=== PATIENT | female | born 1950 | race Caucasian/White ===

== ENCOUNTER 2018-02-22 15:00 | Outpatient (RCR) | payer MEDICARE, OTHER, SELFPAY ==
--- NOTE | 2018-01-27 15:57 | HP.PTEVAL ---
Patient's Visit Information ROSALVA RODRIGUEZ is a 68 year old F referred to Physical Therapy by Chalino Mae DO [email or web address] with a diagnosis of UPPER BACK PAIN AND MUSCLE SPASMS. Date of Evaluation: 01/27/18 Physical Therapist: Ingrid Caba - Visit Plan Frequency: 2-3x /Week Duration: 4-6 Weeks Plan: CERVICAL US AND STM. POSTURE CORRECTION/STRENGTHENING, INSTRUCTION IN APPROPRIATE BODY MECHANICS AND ACTIVITY MODIFICATIONS. KATIA UE ROM, STRETCHING AND STRENGTHENING. HEP INSTRUCTION. 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 Disability: NO. Present symptoms: NECK PAIN. UPPER BACK PAIN. NO SHOULDER PAIN. NO UE PAIN, NUMBNESS OR TINGLING EXCEPT SHE DOES MENTION SOME HAND TINGLING AT NIGHT/MORNING. Present since: ABOUT 2 MONTHS AGO. Pain Scale: WORST 10/10, LEAST 1/10. Currently: 11/11. Commenced as a result of: NO APPARENT REASON. Symptoms at onset: UPPER BACK. Worse: TALKING ON PHONE AT WORK, TRYING TO SLEEP, BEING ON IPAD, READING, DRIVING, TURNING HEAD, LOOKING UP AND DOWN. Better: HEAT, STRETCHING, BIOFREEZE, MASSAGE. Disturbed sleep: YES. Previous history/Previous treatment: ABOUT A 5 YEAR HISTORY OF NECK/UPPER BACK CHIROPRACTIC TREATMENTS NEEDED. Dizziness: NO. Tinnitis: NO. Nausea: NO. Difficulty Swollowing: NO. Gait: NORMAL. Accidents: NO. Unexplained weight loss: NO. Imaging: NO. PMH: HTN, HYPERLIPIDEMIA, PALPITATIONS, REFLUX, LUMBAR SPINAL STENOSIS, VITAMIN D DEFICIENCY, ANXIETY, VERTIGO, OA, BACK SURGERY 2015 - Objective Sitting Posture: POOR. FORWARD HEAD AND ROUNDED SHOULDERS. Active Correction of posture: BETTER. Other Observations: INDEP GAIT AND TRANSFERS. PLEASANT AND COOPERATIVE TO WORK WITH. Motor deficit: KATIA UE STRENGTH 4-5/5 WITH MMT'ING AND TESTING DOES NOT PROVOKE NECK PAIN BUT HER SCAPULA ARE WEAK. Sensory deficit: KATIA UE LIGHT TOUCH SENSATION ARE INTACT AND SYMMETRICAL. ROM deficit: KATIA UE'S WFL. Reflexes: 2/3 KATIA UE'S. Dural Signs: NEGATIVE KATIA UE'S. Cervical Mvmt Loss: Flex: NILL. Pro: NILL. Ext: MOD +. Ret: DEBBI +. RSB: MOD +. LSB: MIN. R Rot: MIN. L Rot: MOD +. + ARE THE MOTIONS THAT ARE MORE LIMITED AND PROVOKE PAIN WITH TESTING. Postural strength: POOR. Palpation: NO ACUTE LOCALIZED TENDERNESS OF UPPER THORACIC OR CERVICAL VERTEBRAE BUT SHE HAS INCREASED MUSCLE TONE OF KATIA UPPER TRAPS AND PARASPINALS. OTHER: GENTLE CERCICAL DISTRACTION TESTING HAS NO EFFECT OTHER THAN STRETCHING DOWN TO LOW BACK. - Goals Goal 1:: DECREASE C/O NECK AND UPPER BACK PAIN Goal Time Frame: 4-6 Weeks Goal 2:: IMPROVE BENDING, LIFTING, REACHING, ADL AND SLEEP FUNCTION Goal Time Frame: 4-6 Weeks Goal 3:: INSTRUCT IN PROPHYLAXIS Goal Time Frame: 4-6 Weeks - Rehabilitation Potential Rehabilitation Potential: Fair - Anticipated Interventions Patient/Client Instruction: Educate patient on: Condition, Plan of Care, Risk Factors, Benefits of Fitness Program For the Purpose of:: To improve self management Therapeutic Exercise to Include: Strength training, Body mechanics, Postural training, Flexibilty training, Active ROM, Scapular Strength/Stabilization For the Purpose of:: To improve ability of physical actions for home/community/work/leisure Manual Therapy Techniques to Include: Soft tissue mobilization For the Purpose of:: To decrease pain, To increase ROM Thermo therapy (hot pack): Yes Ultrasound (thermal/non thermal): Yes For the Purpose of:: To decrease pain, To decrease swelling/inflammation, To increase ROM Thank you for the opportunity to evaluate your patient. For Medicare and Medicare HMO plans, please review the plan of care and approve it. It will need to be FAXED BACK to us at [phone] for Medicare purposes. Please let me know if there are questions or concerns regarding this plan of care. Physician Signature: Date:
--- NOTE | 2018-02-22 15:44 | HP.PTDCSUM ---
HP - PT D/C Summary It has been my pleasure to treat ROSALVA RODRIGUEZ under orders from Chalino Mae DO, for the diagnosis of UPPER BACK PAIN AND MUSCLE SPASMS for a total of 8 visit(s). Discharge Date: Please see the following information for a summary of their discharge status. - Subjective Subjective: PATIENT REPORTS SHE REALLY ISN'T GETTING BETTER. SHE PLANS TO GO BACK TO DR. MAE. SHE DOESN'T HAVE ANY PAIN RIGHT NOW BUT SOON SHE TURNS HER HEAD TO THE LEFT IT PROVOKES PAIN. THE PAIN WAKES HER UP AT NIGHT TOO. - Pain L UT Pain Intensity (Out of 10): 0 - Overall Improvement % Improvement: 65 - Objective Objective/Function: UPON EXAM, THERE IS NOT MUCH CHANGE SINCE INITIAL EVALUATION. Cervical Mvmt Loss: Flex: NILL. Pro: NILL. Ext: MIN +. Ret: MOD +. RSB: MIN +. LSB: MIN. R Rot: MIN. L Rot: MOD +. + ARE THE MOTIONS THAT ARE MORE LIMITED AND PROVOKE PAIN WITH TESTING. OSWESTRY SCORE HAS IMPROVED FROM 11 TO 8 THOUGH. RECOMMEND PHYSICIAN RE-CHECK. PATIENT IS AGREEABLE. - Goals Goal 1:: DECREASE C/O NECK AND UPPER BACK PAIN Goal Progress: Not Progressing Goal 2:: IMPROVE BENDING, LIFTING, REACHING, ADL AND SLEEP FUNCTION Goal Progress: Not Progressing Goal 3:: INSTRUCT IN PROPHYLAXIS Goal Progress: Not Progressing - Plan Plan: D/C WITH RECOMMENDATION TO FOLLOW UP WITH DR. MAE. PATIENT IS AGREEABLE. - D/C Information If there are questions or concerns regarding this patient's physical therapy, please feel free to call me at [phone]. Thank you for the referral of this patient. Sincerely, Ingrid Caba
== END 2018-02-22 19:00 | disposition home or self-care (01) ==
LOC: PT 15:00
PROVIDERS: Family Provider Family Medicine; PCP Family Medicine; Visit Provider Family Medicine
DX: M54.9 Dorsalgia, unspecified (principal); M62.838 Other muscle spasm; M48.061 Spinal stenosis, lumbar region without neurogenic claudication; M19.90 Unspecified osteoarthritis, unspecified site
CPT/HCPCS: 97035; 97110; 97140; 97162; 97530

== ENCOUNTER → 2018-03-08 13:19 | Outpatient (CLI) | payer MEDICARE, OTHER, SELFPAY | PROVIDERS: Family Provider Family Medicine; PCP Family Medicine; Visit Provider Family Medicine | DX: I10 Essential (primary) hypertension (principal); E78.5 Hyperlipidemia, unspecified; E55.9 Vitamin D deficiency, unspecified ==

== ENCOUNTER → 2018-03-17 09:34 | Outpatient (CLI) | payer MEDICARE, OTHER, SELFPAY ==
--- NOTE | 2018-03-17 09:50 | RAD_ITS ---
XR Spine Cervical 4 or 5 Views INDICATION: CERVICAL PAIN AND TINGLING RIGHT FINGERS COMPARISON: None TECHNIQUE: 6 views of the cervical spine FINDINGS: There is mild anterolisthesis of C4 on C5. Disc spaces at C5-6 and C6-7 are decreased. Marginal disc osteophytes are noted. Facet arthritic changes and uncovertebral joint hypertrophy is noted at the mid and lower cervical levels with findings suggestive of neuroforaminal narrowing. A fracture is not seen with certainty. There is normal atlantoaxial relationship. RAD/Cerv Spine 4 or 5 Views IMPRESSION: Marked degenerative changes at the cervical spine as detailed above findings suggestive of bilateral neuroforaminal narrowing at the mid and lower cervical levels. MRI may be helpful for further evaluation. at 1728 Reported and signed by: Maricarmen Ward MD Electronically Signed: Maricarmen Ward MD at 17:26 EDT Tel , Service support ,
[2018-03-17 12:03] LABS: Absolute Lymphocyte Count 1.66 X10^3/ul (0.83-4.51); Basophil# 0.04 X10^3/uL; Basophil% 0.9 % (0-1); Eosinophil# 0.22 X10^3/uL; Eosinophils% 5.1 % (0-5); Hematocrit 40.2 % (37-47); Hemoglobin 13.2 g/dl (12.0-15.0); Lymphocyte # 1.66 X10^3/ul (4.0); Lymphocyte % 38.2 % (19-41); Mean Corp Hgb Conc 32.8 g/gl (32-36); Mean Corpuscular Hgb 30.3 pg (27.0-32.0); Mean Corpuscular Volume 92.4 fL (81-99); Mean Platelet Vol. 9.4 fl (6.2-12.0); Monocyte# 0.41 X10^3/uL; Monocyte% 9.4 % (0-10); Neutrophil # 2.01 X10^3/uL (2.7-7.7); Neutrophil % 46.2 % (47-70); POSITIVE COUNT NO; POSITIVE DIFFERENTIAL NO; POSITIVE MORPHOLOGY NO; Platelet Count 282 K/mm3 (150-450); RBC Distribution Width CV 13.8 % (11.6-14.6); RBC Distribution Width SD 46.6 fl (35.1-43.9); Red Blood Count 4.35 M/mm3 (4.2-5.4); White Blood Count 4.4 K/mm3 (4.4-11.0)
[2018-03-17 12:25] LABS: Vitamin D,25 Hydroxy 51.8 ng/mL (29.95-100.01)
[2018-03-17 12:29] LABS: AST(SGOT) 11 U/L (15-37); Alanine Aminotransfer ALT/SGPT 20 U/L (13-56); Albumin, Serum 3.6 g/dL (3.2-5.0); Alkaline Phosphatase 59 U/L (45-117); Anion Gap 7 (5-15); BUN 18 mg/dL (7-18); BUN/Creat Ratio 30.9 RATIO (10-20); Calcium,Total 8.2 mg/dL (8.5-10.1); Chloride 107 mmol/L (98-107); Cholesterol 231 mg/dL (200); Creatinine, Serum 0.58 mg/dL (0.55-1.02); EST Glomerular Filtration Rate 109 mL/min (>60); Est Glom Filt Rate - Afr Amer 132 mL/min (>60); Globulin 3.5 g/dL (2.2-4.2); Glucose 85 mg/dL (74-106); High Density Lipoprotein 68 mg/dL; Potassium 4.1 mmol/L (3.5-5.1); Protein, Total 7.1 g/dL (6.4-8.2); Sodium Level 142 mmol/L (136-145); Triglycerides 79 mg/dL; Very Low Density Lipoprotein 16 mg/dL (5-40)
== END ==
PROVIDERS: Family Provider Family Medicine; PCP Family Medicine; Visit Provider Family Medicine
DX: I10 Essential (primary) hypertension (principal); E78.5 Hyperlipidemia, unspecified; E55.9 Vitamin D deficiency, unspecified; M54.2 Cervicalgia
CPT/HCPCS: 36415; 72050; 80053; 80061; 82306; 85025

== ENCOUNTER → 2018-03-31 10:15 | Outpatient (CLI) | payer MEDICARE, OTHER, SELFPAY ==
--- NOTE | 2018-03-31 10:28 | MRI_ITS ---
STUDY: MRI CERVICAL SPINE WITHOUT CONTRAST REASON FOR EXAM: Female, 68 years old. neck pain radiating to right arm, tingling right fingers. TECHNIQUE: Standardized fat and water weighted pulse sequences were obtained in the sagittal and axial planes. COMPARISON: None FINDINGS: Normal foramen magnum and brainstem-cervical cord junction. Normal craniovertebral junction. Normal anterior atlantoaxial articulation. Normal odontoid process. There is straightening of the normal cervical lordosis. C2-3: Normal endplates. Normal disc height, signal and morphology. Normal central canal and intervertebral neural foramina. C3-4: There is minimal disc space narrowing and endplate spondylosis. There is uncovertebral facet arthropathy with mild right and severe left foraminal stenosis. There is no central canal stenosis. C4-5: There is mild disc space narrowing and endplate spondylosis. There is minimal disc osteophyte complex without central canal stenosis. There is uncovertebral facet arthropathy with mild right and moderate left foraminal stenosis. C5-6: There is moderate disc space narrowing and endplate spondylosis. There is a mild disc osteophyte complex with moderate central canal stenosis. There is uncovertebral arthropathy with moderate right and mild left foraminal stenosis. C6-7: There is moderate disc space narrowing and endplate spondylosis. There is a mild disc osteophyte complex with mild canal stenosis. There is uncovertebral arthropathy with mild bilateral foraminal stenosis. C7-T1: Normal endplates. Normal disc height, signal and morphology. Normal central canal and intervertebral neural foramina. Normal cervical cord. There is a 2 cm right thyroid nodule. Further evaluation with sonography can be obtained. MRI/Spine Cervical (Routine) IMPRESSION: C3/C4: Severe left foraminal stenosis. C4/C5: Moderate left foraminal stenosis. C5/C6: Moderate central canal stenosis. Moderate right foraminal stenosis. Electronically Signed: Jose Wick MD at 8:11 EDT Tel , Service support ,
== END ==
PROVIDERS: Family Provider Family Medicine; PCP Family Medicine; Visit Provider Family Medicine
DX: M54.2 Cervicalgia (principal); G89.29 Other chronic pain
CPT/HCPCS: 72141

== ENCOUNTER → 2018-04-09 10:20 | Outpatient (CLI) | payer MEDICARE, OTHER, SELFPAY ==
--- NOTE | 2018-04-09 10:20 | DT_ITS ---
This patient was seen during an EMR downtime April 05, 2018 - April 12, 2018. This patient may have a combination of paper and electronic documentation or all paper documentation. All documentation is viewable within the e-chart portion of [facility] for each patient visit.
--- NOTE | 2018-04-09 10:22 | US_ITS ---
STUDY: THYROID ULTRASOUND REASON FOR EXAM: Female, 68 years old. Nodules noted on MRI TECHNIQUE: Ultrasound evaluation of the thyroid was performed with real-time and static mcrae-scale imaging. COMPARISON: None. FINDINGS: RIGHT LOBE: The right lobe of the thyroid gland measures 4.5 x 2.5 x 2.1 cm. There is a homogeneous echotexture. Multiple solid/cystic complex nodules, largest measures 3.6 x 2.2 x 1.9 cm. LEFT LOBE: The left lobe of the thyroid gland measures 3.6 x 1.3 x 1.0 cm. There is a homogeneous echotexture. There are no demonstrated solid, cystic or complex lesions. ISTHMUS: The isthmus measures 3 mm. The regional lymph nodes are normal. US/Thyroid IMPRESSION: Normal sized homogeneous thyroid gland with multiple complex cysts in the right lobe. Largest measures 3.6 x 2.2 x 1.9 cm. Electronically Signed: Miguel Chapa MD at 8:26 EDT , Service support ,
== END ==
PROVIDERS: Family Provider Family Medicine; PCP Family Medicine; Visit Provider Family Medicine
DX: E04.1 Nontoxic single thyroid nodule (principal)
CPT/HCPCS: 76536

== ENCOUNTER → 2018-04-12 13:13 | Outpatient (CLI) | payer MEDICARE, OTHER, SELFPAY ==
--- NOTE | 2018-04-12 13:13 | DT_ITS ---
This patient was seen during an EMR downtime April 05, 2018 - April 12, 2018. This patient may have a combination of paper and electronic documentation or all paper documentation. All documentation is viewable within the e-chart portion of [facility] for each patient visit.
--- NOTE | 2018-04-12 13:16 | BI_ITS ---
MAMMOGRAPHY - BILATERAL SCREENING REASON FOR EXAM: Female, 68 years old. Routine annual screening examination. PERTINENT HISTORY: NO FAM HX BILAT EXC BX'S 35+ YRS AGO TECHNIQUE: Digital bilateral breast vonda (3D mammographic acquisition) in the CC and MLO projections. 2-D mediolateral oblique (MLO) and craniocaudad (CC) views of both breasts were obtained. CAD: Full Field Digital Mammography with Computer Added Detection was performed. COMPARISON: 03/10/2017, Mar 03 2016 1:10pm and 03/02/2015 FINDINGS: Breast Composition: There are scattered areas of fibroglandular density. There are no dominant masses or suspicious calcifications. No other significant abnormalities are identified. BI/SCREENING MAMM (CAD), BILAT IMPRESSION: Stable bilateral screening mammogram. Yearly follow-up mammogram recommended. (A) ASSESSMENT CATEGORY: BIRADS Category 2: Benign. A letter regarding these results will be sent to the patient by the facility within 30 days. Approximately 10% of breast cancers are not detected by mammography. A normal mammogram should not delay biopsy of a clinically suspicious abnormality. [id number] Electronically Signed: Venus Piedra MD at 11:48 EDT Tel , Service support ,
== END ==
PROVIDERS: Family Provider Family Medicine; PCP Family Medicine; Visit Provider Family Medicine
DX: Z12.31 Encounter for screening mammogram for malignant neoplasm of breast (principal)
CPT/HCPCS: 77063; 77067

== ENCOUNTER → 2018-04-19 13:52 | Outpatient (CLI) | payer MEDICARE, OTHER, SELFPAY ==
[2018-04-19 16:29] LABS: T4 Total, Thyroxin 7.2 ug/dL (4.8-13.9); Thyroid Stim Hormone (TSH) 2.88 uIU/mL (0.358-3.74)
[2018-04-22 13:10] LABS: Anti-Thyroglobulin AB < 1.0 IU/mL (0.0-0.9); Thyroglobulin, Serum Qt. 44.8 ng/mL (1.5-38.5); Thyroid Peroxidase AB 12 IU/mL (0-34)
== END ==
PROVIDERS: Family Provider Family Medicine; PCP Family Medicine; Visit Provider Otolaryngology
DX: E04.2 Nontoxic multinodular goiter (principal)
CPT/HCPCS: 36415; 84432; 84436; 84443; 86376; 86800

== ENCOUNTER → 2018-04-21 12:59 | Outpatient (CLI) | payer MEDICARE, OTHER, SELFPAY ==
--- NOTE | 2018-04-21 13:24 | RAD_ITS ---
STUDY: X-RAY - LUMBAR SPINE REASON FOR EXAM: Female, 68 years old. Low back pain with radiation of right lower extremity TECHNIQUE: 5 view(s) of the lumbar spine were obtained. COMPARISON: Prior study of every 22,015 FINDINGS: Normal lumbar lordosis. There is no substantial scoliosis. There is a minimal grade 1 anterolisthesis of L4 relative to L5. Status post posterior spinal fusion changes with interpeduncular screws are noted at the L4-5 level. There are status post L4 and L5 laminectomy changes. There is mild spondylosis of L2 and L3. There is narrowing of the L1-2 and L2-3 disc spaces. There is no demonstrated fracture. The soft tissue structures are unremarkable. RAD/L/S Spine Min 4 Views IMPRESSION: Minimal grade 1 anterolisthesis of L4 relative to L5. Status post posterior spinal fusion changes with interpeduncular screws at the L4-5 level. There are status post L4 and L5 laminectomy changes. Mild spondylosis of L2 and L3. Narrowing of the L1-2 and L2-3 disc spaces. The bones are osteopenic. Electronically Signed: Jaron Simmons MD at 16:28 EDT , Service support ,
== END ==
PROVIDERS: Family Provider Family Medicine; PCP Family Medicine; Visit Provider Nurse Practitioner Family
DX: M54.5 Low back pain (principal)
CPT/HCPCS: 72110

== ENCOUNTER → 2018-04-28 13:50 | Outpatient (CLI) | payer MEDICARE, OTHER, SELFPAY ==
--- NOTE | 2018-04-28 | ASPIG_PTH ---
PATIENT: ROSALVA RODRIGUEZ LOC: [facility]#:[id number] AGE/SX: 75/F ROOM: RE04/28/[address]: Dr. Lambert Hanley MD : 1950 BED: DIS: SPEC #: [id number] RECD: 04/28/18 15:42 STATUS: ELIESER CARMELA #: [id number] LENCHO: 04/28/18 00:[address]: Lambert Hanley DEPT: CYTOLOGY RECD BY: Gus Box ENTERED: 04/28/18 15:43 SP TYPE: ASP OUT OTHR DR: Dr. Chalino Mae DO Tissues: Thyroid gland, NOS Procedures: FNA Specimen Adequacy Pap Stain (control) Special Stain Group II Surgery Specimen Level IV Diff Quik Stain (control) Cell Block Cytology Other HEADER OPERATION: Ultrasound guided right thyroid biopsy PRE-OP DIAGNOSIS: Nontoxic multinodular goiter TISSUE SUBMITTED: Right thyroid nodule, FNA DIAGNOSIS CYTOLOGY Right thyroid nodule, ultrasound guided FNA (smears and cell block): A few benign follicular cells were noted. The specimen is limited in evaluation due to lack of adequate number of follicular cells. JACKLYN:baldo 04/29/18 COMMENT The specimen is evaluated at the time of FNA by Dr. Loyola. Immediate Evaluation set #1 (2 passes) = Rare follicular cells noted. Immediate Evaluation #2 (1 pass) = Blood only. Correlation with clinical, radiologic findings and appropriate followup are necessary. CYTOLOGY STUDY Slides are reviewed. CYTOLOGY GROSS Received is 0.5 cc of bloody fluid labeled with the patient's name, and designated FNA, right thyroid nodule. 8 imprints and 9 paps are made from the submitted fluid and the rest is added to CytoLyt for cell block preparation. Submitted for cytology study. Also Received is 0.5 cc of bloody fluid labeled with the patient's name, and designated FNA, right thyroid nodule. 5 imprints and 4 paps are made from the submitted fluid and the rest is added to CytoLyt for cell block preparation. Submitted for cytology study. /JACKLYN:cc 04/28/18 TC:5 CPT: 60746, 33497, 70459, 02590, 37739
--- NOTE | 2018-04-28 13:52 | US_ITS ---
PROCEDURE: ULTRASOUND GUIDED RIGHT LOBE THYROID FNA/BIOPSY. DATE: April 28, 2018 INDICATION: Female, 68 years old. Dominant nodule in the right lobe of the thyroid. PHYSICIAN: Matias Lion M.D. MEDICATIONS: 2% lidocaine administered subcutaneously for local anesthesia. ACCESS SITE: Right - anterior approach. NEEDLE: 25-gauge FNA needle. SPECIMEN: Multiple FNA specimen collected and given to pathology. EBL: None. COMPLICATIONS: None immediate. PROCEDURE: The risks, benefits, and alternatives to the procedure were explained to the patient. The specific risk of hemorrhage requiring further treatment or intervention was detailed and accepted. Written informed consent was obtained. The patient was brought into the ultrasound room and placed in the supine position on the stretcher. An appropriate entry site was identified. The overlying skin was prepped and draped in the usual sterile fashion. 2% lidocaine was administered subcutaneously for local anesthesia. Under ultrasound guidance, a 25-gauge FNA needle was advanced into the lesion. Aspiration was performed and the needle was withdrawn. A total of 4 passes were performed with specimen collected and given to the pathologist who was present during the procedure. Hemostasis was achieved with manual compression. Repeat ultrasound images of the biopsy area was performed which demonstrated no gross bleeding or hematoma. An antibiotic ointment dressing was placed and the patient was given an icepack. The patient tolerated the procedure well without immediate complications. The patient was discharged in stable condition. US/US Thyroid Biopsy IMPRESSION: Successful ultrasound-guided right thyroid nodule FNA/biopsy, as described above. Electronically Signed: Matias Lion MD at 15:58 EDT Tel [phone], Service support ,
== END ==
PROVIDERS: Family Provider Family Medicine; PCP Family Medicine; Visit Provider Otolaryngology
DX: E04.2 Nontoxic multinodular goiter (principal)
CPT/HCPCS: 10022; 76942; 88161; 88172; 88305; 88313

== ENCOUNTER → 2018-06-08 14:52 | Outpatient (CLI) | payer MEDICARE, OTHER, SELFPAY | PROVIDERS: Family Provider Family Medicine; PCP Family Medicine; Visit Provider Nurse Practitioner Women's Health | DX: Z78.0 Asymptomatic menopausal state (principal) | CPT/HCPCS: 77080 ==

== ENCOUNTER → 2018-10-20 10:26 | Outpatient (CLI) | payer MEDICARE, OTHER, SELFPAY ==
--- NOTE | 2018-10-20 10:29 | US_ITS ---
STUDY: THYROID ULTRASOUND REASON FOR EXAM: Female, 68 years old. Goiter TECHNIQUE: Ultrasound evaluation of the thyroid was performed with real-time and static mcrae-scale imaging. COMPARISON: 04/28/2018 FINDINGS: RIGHT LOBE: The right lobe of the thyroid gland measures 4.5 x 2.2 x 1.6 cm. There is a homogeneous echotexture. There is a solid vascular nodule in the midpole measuring 3.3 x 2.1 x 1.6 cm. LEFT LOBE: The left lobe of the thyroid gland measures 3.3 x 1.3 x 1.3 cm. There is a homogeneous echotexture. There are no demonstrated solid, cystic or complex lesions. ISTHMUS: The isthmus measures 3 mm. The regional lymph nodes are normal. US/Thyroid IMPRESSION: Stable solid nodule in the right lobe as above. Remainder appears within normal limits Electronically Signed: Humberto Wynn DO at 11:28 EST Tel , Service support ,
--- OUTSIDE RECORDS SUMMARY | 2019-01-21 14:14 | XMS RPT_ITS ---
:1950 Author Organization OHIP Support Name Relationship Address Phone JOYCE RODRIGUEZH Unavailable [address] + [place] [address] R Unavailable Unavailable Unavailable MICHAEL, SERGEI Unavailable [address] + [place] [address] R Unavailable Unavailable Unavailable MICHAEL, SERGEI Unavailable [address] + [place] [address] R Unavailable Unavailable Unavailable MICHAEL, SERGEI Unavailable [address] + [place] [address] R Unavailable Unavailable Unavailable MICHAEL, SERGEI Unavailable [address] + [place] [address] R Unavailable Unavailable Unavailable MICHAEL, SERGEI Unavailable [address] + [place] [address] R Unavailable Unavailable Unavailable MICHAEL, SERGEI Unavailable [address] + [place] [address] R Unavailable Unavailable Unavailable MICHAEL, SERGEI Unavailable [address] + [place] [address] R Unavailable Unavailable Unavailable MICHAEL, SERGEI Unavailable [address] + [place] [address] R Unavailable Unavailable Unavailable MICHAEL, SERGEI Unavailable [address] + [place] [address] R Unavailable Unavailable Unavailable MICHAEL, SERGEI Unavailable [address] + [place] [address] R Unavailable Unavailable Unavailable MICHAEL, SERGEI Unavailable [address] + [place] [address] R Unavailable Unavailable Unavailable MICHAEL, SERGEI Unavailable [address] + [place] [address] R Unavailable Unavailable Unavailable Care Team Providers Name Role Phone Lambert Hanley Attending Unavailable Hanley, Lambert Referring Unavailable Tu, Chalino Primary Care Unavailable Tu, Chalino Attending Unavailable Tu, Chalino Primary Care Unavailable Tu, Chalino Attending Unavailable Tu, Chalino Referring Unavailable Tu, Chalino Primary Care Unavailable Tu, Chalino Attending Unavailable Tu, Chalino Primary Care Unavailable Tu, Chalino Referring Unavailable Tu, Chalino Attending Unavailable Tu, Chalino Referring Unavailable Tu, Chalino Primary Care Unavailable Tu, Chalino Attending Unavailable Tu, Chalino Primary Care Unavailable Tu, Chalino Attending Unavailable Tu, Chalino Referring Unavailable Tu, Chalino Primary Care Unavailable Hanley, Lambert Attending Unavailable Tu, Chalino Primary Care Unavailable Prebish, Hannah PRODUCT ARCHITECT-C Attending Unavailable Prebish, Hannah PRODUCT ARCHITECT-C Referring Unavailable Tu, Chalino Primary Care Unavailable Hanley, Lambert Attending Unavailable Hanley, Lambert Referring Unavailable Tu, Chalino Primary Care Unavailable GurpreetIliana arthur Attending Unavailable Tu, Chalino Referring Unavailable Tu, Chalino Primary Care Unavailable Rosetta Cevallos Attending Unavailable Gladstone, Iliana Attending Unavailable Tu, Chalino Primary Care Unavailable PROBLEMS PROBLEMS DATE TYPE CONDITION / CODE ATTENDING STATUS SOURCE 10/20/2018 Unknown E04.2 - Nontoxic Hanley, Lambert Active [place] multinodular Community goiter / Hospital E04.2(ICD-10) Repository 05/10/2018 Unknown Z78.0 - Iliana Vázquez Active [place] Asymptomatic Community menopausal state / Hospital Z78.0(ICD-10) Repository 04/21/2018 Unknown M54.5 - Low back Prebish, Hannah Active [place] pain / PRODUCT ARCHITECT-C Community M54.5(ICD-10) Hospital Repository 04/28/2018 Unknown Z12.31 - Encounter TuChalino diaz Active [place] for screening Community mammogram for Hospital malignant neoplasm Repository of breast / Z12.31(ICD-10) 04/28/2018 Unknown E04.1 - Nontoxic TuChalino diaz Active [place] single thyroid Community nodule / Hospital E04.1(ICD-10) Repository 03/31/2018 Unknown M54.2 - Tu, Chalino Active [place] Cervicalgia / Community M54.2(ICD-10) Hospital Repository 03/31/2018 Unknown G89.29 - Other Chalino Mae Active [place] chronic pain / Community G89.29(ICD-10) Hospital Repository 03/17/2018 Unknown I10 - Essential Chalino Mae Active [place] (primary) Community hypertension / Hospital I10(ICD-10) Repository 03/17/2018 Unknown E55.9 - Vitamin D Chalino Mae Active [place] deficiency, Community unspecified / Hospital E55.9(ICD-10) Repository 03/08/2018 Unknown E78.5 - Chalino Mae Active [place] Hyperlipidemia, Community unspecified / Hospital E78.5(ICD-10) Repository PROCEDURES PROCEDURES No Procedure Records FoundRESULTS RESULTS CEMENT SACK BREAKER OFFICE VISIT Observed: 11/09/2018 Status: F Source: [place] REPORT 8:33 AM [facility] REPOSITORY [facility] [address] [place] [address] OFFICE VISIT Date of Service: 05/10/18 MR#: [id number] Acct: [id number] Name: ROSALVA RODRIGUEZ Rep #: [id number] : 1950 Provider: BIRGIT Vázquez Age/Sex: 68/F Location: [facility] Status: Signed with Addenda ADDENDUM by BIRGIT Vázquez on 11/09/18 at 0833 Addendum entered and electronically signed by ALISTAIR Medina 11/09/18 08:33: Rectal exam was deferred. No masses palpated Assessment AND Plan Problems 1. Encounter for gynecological examination without abnormal finding Z01.419 2. Postmenopausal Z78.0 3. Osteopenia, unspecified location M85.80 Plan - ALISTAIR Medina Completed breast and pelvic exam Reviewed diet and exercise Pap NA Mammogram recent Colonoscopy up to date Bone density ordered RTO 1 year, prn with problems Iliana Vázquez FILM REPLACEMENT ORDERER Orders Orders: 11/09/18 0833 <Electronically signed by Iliana SAINZ> Date Iliana Vázquez PRODUCT ARCHITECT-C cc: * Signed Intake Vital Signs05/10/18 Height 5 ft 05/10/18 Weight: 138 lb 4 oz 05/10/18 Body Mass Index (BMI) 27.0 05/10/18 Blood Pressure 120/60 Intake Visit Reasons: ANNUAL Is patient in pain?: No Allergies ciprofloxacin [From Cipro] Allergy (Verified 05/10/18 14:39) Unknown Medications Albuterol IH (ProAir) [Proair Hfa (SP)Vent Pts] 2 puff INHALATION Q6H PRN PRN 02/05/16 [History Confirmed 02/05/16] Amlodipine [Norvasc] 5 mg PO DAILY 02/05/16 [History Confirmed 02/05/16] Aspirin [Adult Low Dose Aspirin EC] 81 mg PO DAILY 02/05/16 [History Confirmed 02/05/16] Azelaic Acid [Finacea] 50 gm TP DAILY 02/05/16 [History Confirmed 02/05/16] Cholecalciferol (VIT D3) [Vitamin D] 2,000 unit PO DAILY 02/05/16 [History Confirmed 02/05/16] Citalopram [Celexa] 40 mg PO DAILY 02/05/16 [History Confirmed 02/05/16] Folic Acid 0.4 mg PO DAILY@0800 02/05/16 [History Confirmed 02/05/16] Metronidazole [Metrogel Topical] 1 applic TOPICAL BID 02/05/16 [History Confirmed 02/05/16] PFSH Medical History Hypertension (Chronic) Surgical History Previous back surgery (Acute) S/P thyroid biopsy (Acute) Family History Grandmother Colon cancer Father Cancer CVA (cerebral vascular accident) Social History adopted: No current occupational status: employed current occupation: [employer], parttime Smoking Status: Former smoker alcohol intake: current alcohol intake frequency: 0-2 drinks per day substance use type: does not use what type of physical activity do you participate in: walking frequency: 3-4 times per week seatbelt use: always do you feel safe at home: Yes Pregancy History 3 Elective abortions Hx Para 3 Spontaneous abortions HPI ANNUAL: Details: ROSALVA RODRIGUEZ is a 68 year old who presents for annual exam. Denies concerns History of abnormal PAP: no Last mammogram: April 2018 History of abnormal mammogram: benign biopsy Colon cancer screenin [place], repeat 5 years ROS Const Constitutional: Denies fatigue, weight gain or weight loss Cardio Card: Denies chest pain Resp Resp: Denies cough or shortness of breath with activity GI GI: Denies abdominal pain, constipation, change in stools, vomiting or bloating : Reports as per HPI; denies urinary frequency, pelvic pain, urinary urgency, vaginal discharge, vaginal itching, urinary incontinence or difficulty urinating Exam Const General: cooperative, healthy appearing, no acute distress, well developed Orientation: alert, oriented to person, oriented to place HENMO Head: normal to inspection Chest Breast inspection: normal inspection of the breasts, normal inspection of the axillae Breast palpation: normal palpation of the breasts, normal palpation of the axillae, no axillary lymphadenopathy GI Palpation: soft, nontender, no masses Rectal Exam: mass, deferred External Female Exam: normal external appearance, normal appearance of the urethra Urethra: normal appearance of the urethra, normal palpation Speculum Exam - Vagina: normal vaginal discharge, atrophic vaginal mucosa Speculum Exam - Cervix: normal appearance of the cervix Bimanual Exam- Vagina AND Uterus: normal bimanual exam, uterine size normal, uterine shape normal, uterus non-tender Bimanual Exam- Adnexa, other: normal adnexae, no adnexal masses, adnexae non-tender, pelvic support normal Pelvic Support: normal Neuro General: alert, oriented x3 Psych Affect: normal affect Assessment AND Plan Problems 1. Encounter for gynecological examination without abnormal finding Z01.419 2. Postmenopausal Z78.0 3. Osteopenia, unspecified location M85.80 Plan Completed breast and pelvic exam Reviewed diet and exercise Pap NA Mammogram recent Colonoscopy up to date Bone density ordered RTO 1 year, prn with problems Iliana Vázquez FILM REPLACEMENT ORDERER Orders Orders: Coding Level of Care Code Pelvic/Breast Diagnoses Encounter for gynecological examination without abnormal finding Z01.419 Gynecological examination findings: abnormal findings ABSENT Postmenopausal Z78.0 Osteopenia, unspecified location M85.80 Osteopenia location: unspecified 05/10/18 7616 <Electronically signed by Iliana Vázquez PRODUCT ARCHITECT-C> Date Iliana Krugers PRODUCT ARCHITECT-C Sharonigner Signature: Date (if applicable) CC: THYROID Observed: 10/20/2018 Status: F Source: [place] 10:29 AM [facility] REPOSITORY [facility] Imaging Services [address] [place] [address] Thyroid MR#: [id number] Acct: [id number] Name: ROSALVA RODRIGUEZ Abigail Rep #: [id number] : 1950 F 68 From: Humberto Wynn DO PCP: Tu PERALTA,Chalino Status: REG CLI Study: Thyroid Date of Exam: 10/20/18 Exam# [id number] Ordering Dr: Lambert Hanley MD STUDY: THYROID ULTRASOUND REASON FOR EXAM: Female, 68 years old. Goiter TECHNIQUE: Ultrasound evaluation of the thyroid was performed with real-time and static mcrae-scale imaging. COMPARISON: 04/28/2018 FINDINGS: RIGHT LOBE: The right lobe of the thyroid gland measures 4.5 x 2.2 x 1.6 cm. There is a homogeneous echotexture. There is a solid vascular nodule in the midpole measuring 3.3 x 2.1 x 1.6 cm. LEFT LOBE: The left lobe of the thyroid gland measures 3.3 x 1.3 x 1.3 cm. There is a homogeneous echotexture. There are no demonstrated solid, cystic or complex lesions. ISTHMUS: The isthmus measures 3 mm. The regional lymph nodes are normal. US/Thyroid IMPRESSION: Stable solid nodule in the right lobe as above. Remainder appears within normal limits Electronically Signed: Humberto DO Kingsley at 11:28 EST Tel , Service support , CC: Lambert Hanley MD; Chalino Mae DO Reverse Logistics Analyst: Signed DEXA BONE DENSITY Observed: 06/08/2018 Status: F Source: [place] STUDY 2:54 PM [facility] REPOSITORY [facility] Imaging Services [address] [place] [address] Dexa Bone Density Study MR#: [id number] Acct: [id number] Name: ROSALVA RODRIGUEZ Rep #: [id number] : 1950 F 68 From: Matias Lion MD PCP: Chalino Mae DO Status: REG CLI Study: Dexa Bone Density Study Date of Exam: 06/08/18 Exam# [id number] Ordering Dr: Iliana Vázquez PRODUCT ARCHITECT-C STUDY: DUAL ENERGY X-RAY ABSORPTIOMETRY / DXA REASON FOR EXAM: Female, 68 years old. Early menopause. Loss of height. TECHNIQUE: Bone Mineral Density (BMD) measurements of lumbar spine and bilateral hips were obtained. COMPARISON: Comparison is made with prior study dated November 01, 2014. FINDINGS: Lumbar Spine (L1-L4): g/cm2 (1.061) / T-score (-1.2) / Z-score (0.5) Findings are suggestive of osteopenia with a moderate fracture risk. Left Femur Total: g/cm2 (0.766) / T-score (-1.9) / Z- score (-0.5) Left Femoral Neck: g/cm2 (0.723) / T-score (-2.3) / Z- score (-0.6) Right Femur Total: g/cm2 (0.734) / T-score (-2.2) / Z- score (-0.7) Right Femoral Neck: g/cm2 (0.708) / T-score (-2.4) / Z-score (-0.7) The T-Scores on the most recent prior examination were: Lumbar Spine (L1-L4): There has been worsening of bone density since the previous examination. Left Femur Total: which represents a worsening of 3.6%. Right Femur Total: which represents a worsening of 3.4%. BD/Dexa Bone Density Study IMPRESSION: The patient is considered osteopenic as outlined below according to World Sonido Organization (WHO) criteria with a moderate fracture risk. There has been worsening of bone density since the previous examination. Reference Information: The T-score is the number of standard deviations above or below the standard which is normal for young adults at their peak bone mineral density. The World Health Organization (WHO) interprets the T-scores as follows: Above -1 Normal bone density Between -1 and -2.5 Osteopenia Equal to / or below -2.5 Osteoporosis As a practical clinical guideline, osteopenia may be graded as follows: Mild -1 through -1.5 Moderate -1.6 through -2.0 Severe -2.1 through -2.4 The Z-score is the number of standard deviations above or below age-matched controls. A Z-score of less than -1.5 would be considered abnormal. References: 1. NIH Osteoporosis and Related Bone Diseases http://www.osteo.org 2. International Society for Clinical Densitometry http://www.iscd.org 3. National Osteoporosis Foundation http://www.nof.org Electronically Signed: Matias Lion MD at 14:19 EDT Tel [phone], Service support , CC: BIRGIT Vázquez; Chalino Mae DO Reverse Logistics Analyst: Signed US THYROID BIOPSY Observed: 04/28/2018 Status: F Source: [place] 1:52 PM [facility] REPOSITORY [facility] Imaging Services [address] [place] [address] US Thyroid Biopsy MR#: [id number] Acct: [id number] Name: ROSALVA RODRIGUEZ Rep #: [id number] : 1950 F 68 From: Matias Lion MD PCP: Chalino Mae DO Status: REG CLI Study: US Thyroid Biopsy Date of Exam: 04/28/18 Exam# [id number] Ordering Dr: Lambert Hanley MD PROCEDURE: ULTRASOUND GUIDED RIGHT LOBE THYROID FNA/BIOPSY. DATE: April 28, 2018 INDICATION: Female, 68 years old. Dominant nodule in the right lobe of the thyroid. PHYSICIAN: Matias Lion M.D. MEDICATIONS: 2% lidocaine administered subcutaneously for local anesthesia. ACCESS SITE: Right - anterior approach. NEEDLE: 25-gauge FNA needle. SPECIMEN: Multiple FNA specimen collected and given to pathology. EBL: None. COMPLICATIONS: None immediate. PROCEDURE: The risks, benefits, and alternatives to the procedure were explained to the patient. The specific risk of hemorrhage requiring further treatment or intervention was detailed and accepted. Written informed consent was obtained. The patient was brought into the ultrasound room and placed in the supine position on the stretcher. An appropriate entry site was identified. The overlying skin was prepped and draped in the usual sterile fashion. 2% lidocaine was administered subcutaneously for local anesthesia. Under ultrasound guidance, a 25-gauge FNA needle was advanced into the lesion. Aspiration was performed and the needle was withdrawn. A total of 4 passes were performed with specimen collected and given to the pathologist who was present during the procedure. Hemostasis was achieved with manual compression. Repeat ultrasound images of the biopsy area was performed which demonstrated no gross bleeding or hematoma. An antibiotic ointment dressing was placed and the patient was given an icepack. The patient tolerated the procedure well without immediate complications. The patient was discharged in stable condition. US/US Thyroid Biopsy IMPRESSION: Successful ultrasound-guided right thyroid nodule FNA/biopsy, as described above. Electronically Signed: Matias Lion MD at 15:58 EDT Tel [phone], Service support , CC: Lambert Hanley MD; Chalino Mae DO Reverse Logistics Analyst: Signed ASP RADIOLOGY (FLUID) Observed: 04/28/2018 Status: F Source: [place] 12:00 AM [facility] REPOSITORY Patient: ROSALVA RODRIGUEZ : 1950 (68/F) Acct Num: [id number] Phys: Lambert Hanley MD Unit Num: [id number] Loc: US Specimen: [id number] Received: 04/28/18 - 3079 Spec Type: ASP OUT TISSUES TISSUES: Thyroid gland, NOS COMMENT The specimen is evaluated at the time of FNA by Dr. Loyola. Immediate Evaluation set #1 (2 passes) = Rare follicular cells noted. Immediate Evaluation #2 (1 pass) = Blood only. Correlation with clinical, radiologic findings and appropriate followup are necessary. CYTOLOGY GROSS Received is 0.5 cc of bloody fluid labeled with the patient's name, and designated FNA, right thyroid nodule. 8 imprints and 9 paps are made from the submitted fluid and the rest is added to CytoLyt for cell block preparation. Submitted for cytology study. Also Received is 0.5 cc of bloody fluid labeled with the patient's name, and designated FNA, right thyroid nodule. 5 imprints and 4 paps are made from the submitted fluid and the rest is added to CytoLyt for cell block preparation. Submitted for cytology study. /JACKLYN:moni 04/28/18 TC:5 CPT: 94598, 92991, 32108, 37244, 76142 CYTOLOGY STUDY Slides are reviewed. DIAGNOSIS CYTOLOGY Right thyroid nodule, ultrasound guided FNA (smears and cell block): A few benign follicular cells were noted. The specimen is limited in evaluation due to lack of adequate number of follicular cells. JACKLYN:baldo 04/29/18 HEADER OPERATION: Ultrasound guided right thyroid biopsy PRE-OP DIAGNOSIS: Nontoxic multinodular goiter TISSUE SUBMITTED: Right thyroid nodule, FNA Signed Juanjose Loyola 04/29/18 <signature on file> Performed By: #### PASPIG #### [facility] [address] [place], [address] DOWNTIME REPORT Observed: 04/22/2018 Status: F Source: [place] 12:17 PM [facility] Medical Records Department [address] [place] [address] Downtime Report MR#: [id number] Acct: [id number] Name: ROSALVA RODRIGUEZ Rep #: [id number] : 1950 68 From: Arnoldo Yin PCP: Chalino Mae DO Status: REG CLI This patient was seen during an EMR downtime April 05, 2018 - April 12, 2018. This patient may have a combination of paper and electronic documentation or all paper documentation. All documentation is viewable within the e-chart portion of [employer] for each patient visit. DOWNTIME REPORT Observed: 04/22/2018 Status: F Source: [place] 11:59 AM [facility] Medical Records Department [address] [place] [address] Downtime Report MR#: [id number] Acct: [id number] Name: ROSALVA RODRIGUEZ Rep #: [id number] : 1950 68 From: Arnoldo Yin PCP: Chalino Mae DO Status: REG CLI This patient was seen during an EMR downtime April 05, 2018 - April 12, 2018. This patient may have a combination of paper and electronic documentation or all paper documentation. All documentation is viewable within the e-chart portion of [employer] for each patient visit. L/S SPINE MIN 4 Observed: 04/21/2018 Status: F Source: [place] VIEWS 1:24 PM [facility] Imaging Services [address] [place] [address] L/S Spine Min 4 Views MR#: [id number] Acct: [id number] Name: ROSALVA RODRIGUEZ Rep #: [id number] : 1950 F 68 From: Jaron Simmons MD PCP: Chalino Mae DO Status: REG CLI Study: L/S Spine Min 4 Views Date of Exam: 04/21/18 Exam# [id number] Ordering Dr: Hannah Lott STUDY: X-RAY - LUMBAR SPINE REASON FOR EXAM: Female, 68 years old. Low back pain with radiation of right lower extremity TECHNIQUE: 5 view(s) of the lumbar spine were obtained. COMPARISON: Prior study of every 22,015 FINDINGS: Normal lumbar lordosis. There is no substantial scoliosis. There is a minimal grade 1 anterolisthesis of L4 relative to L5. Status post posterior spinal fusion changes with interpeduncular screws are noted at the L4-5 level. There are status post L4 and L5 laminectomy changes. There is mild spondylosis of L2 and L3. There is narrowing of the L1-2 and L2-3 disc spaces. There is no demonstrated fracture. The soft tissue structures are unremarkable. RAD/L/S Spine Min 4 Views IMPRESSION: Minimal grade 1 anterolisthesis of L4 relative to L5. Status post posterior spinal fusion changes with interpeduncular screws at the L4-5 level. There are status post L4 and L5 laminectomy changes. Mild spondylosis of L2 and L3. Narrowing of the L1-2 and L2-3 disc spaces. The bones are osteopenic. Electronically Signed: Jaron Simmons MD at 16:28 EDT , Service support , CC: Hannah Mae DO Reverse Logistics Analyst: Signed T4 TOTAL, THYROXIN Collected: 04/19/2018 Status: F Source: [place] 1:54 PM [facility] REPOSITORY TYPE CODE TESTS RESULT OUT OF RANGE REFERENCE UNITS LAB L501.9310 4.8-13.9 ug/dL T4 Normal THYROXIN 7.2 Performed By: #### L501.9310, L501.9520 #### [facility] [address] [place], [address] THYROID STIM HORMONE Collected: 04/19/2018 Status: F Source: [place] (TSH) 1:54 PM [facility] REPOSITORY TYPE CODE TESTS RESULT OUT OF RANGE REFERENCE UNITS LAB L501.9520 0.358-3.74 uIU/mL Normal TSH 2.88 Performed By: #### L501.9310, L501.9520 #### [facility] [address] [place], [address] THYROGLOBULIN W/ANTI-TG Collected: 04/19/2018 Status: F Source: [place] AB 1:54 PM [facility] REPOSITORY TYPE CODE TESTS RESULT OUT OF RANGE REFERENCE UNITS LAB L3300.7025 0.0-0.9 IU/mL Normal ANTI-TG < 1.0 AB Result Comment: Thyroglobulin Antibody measured by [facility] LAB L3400.1030 1.5-38.5 ng/mL High THYROGLOB 44.8 Result Comment: According to the National Academy of Clinical Biochemistry, the reference interval for Thyroglobulin (TG) should be related to euthyroid patients and not for patients who underwent thyroidectomy. TG reference intervals for these patients depend on the residual mass of the thyroid tissue left after surgery. Establishing a post-operative baseline is recommended. The assay limit of quantitation is 0.1 ng/mL Thyroglobulin measured by [facility] Immunometric Assay Performed By: #### L3300.6820, L3300.6900 #### [facility] (refer to report for specific site) refer to report for address and phone number THYROID PEROXIDASE AB Collected: 04/19/2018 Status: F Source: [place] 1:54 PM [facility] REPOSITORY TYPE CODE TESTS RESULT OUT OF RANGE REFERENCE UNITS LAB L3300.6900 0-34 IU/mL Normal TPO AB 12 5376 Result Comment: Performed at: [facility] [id number] Loan Operations Manager: Giuseppe Garcia PhD, Phone: [phone] Performed By: #### L3300.6820, L3300.6900 #### [facility] (refer to report for specific site) refer to report for address and phone number MISCELLANEOUS LAB Collected: 04/19/2018 Status: F Source: [place] PROCEDURE 1:54 PM [facility] REPOSITORY Order Comment: Comments: TIGER TOP, REF Test(s) Ordered: [id number] , THYROTROPIN RECEPTOR AB TYPE CODE TESTS RESULT OUT OF RANGE REFERENCE UNITS LAB L801.1541 Normal [facility] LAB TEST Result Comment: TEST RESULT LIMITS Thyrotropin Receptor Ab, Serum 2.62 High IU/L 0.00-1.75 [facility]. ORIGINAL REPORT ON FILE IN LAB CONTAINS ADDITIONAL TEST SITE INFORMATION. Performed By: #### L801.1541 #### [facility] [address] [facility] [place], [address] SCREENING MAMM (CAD), Observed: 04/12/2018 Status: F Source: [place] BILAT 1:16 PM [facility] REPOSITORY [facility] Imaging Services [address] [place] [address] SCREENING MAMM (CAD), BILAT MR#: [id number] Acct: [id number] Name: ROSALVA RODRIGUEZ Rep #: [id number] : 1950 F 68 From: Venus Piedra MD PCP: Chalino Mae DO Status: REG CLI Study: SCREENING MAMM (CAD), BILAT Date of Exam: 04/12/18 Exam# [id number] Ordering Dr: Chalino Mae DO MAMMOGRAPHY - BILATERAL SCREENING REASON FOR EXAM: Female, 68 years old. Routine annual screening examination. PERTINENT HISTORY: NO FAM HX BILAT EXC BX'S 35+ YRS AGO TECHNIQUE: Digital bilateral breast vonda (3D mammographic acquisition) in the CC and MLO projections. 2-D mediolateral oblique (MLO) and craniocaudad (CC) views of both breasts were obtained. CAD: Full Field Digital Mammography with Computer Added Detection was performed. COMPARISON: 03/10/2017, Mar 03 2016 1:10pm and 03/02/2015 FINDINGS: Breast Composition: There are scattered areas of fibroglandular density. There are no dominant masses or suspicious calcifications. No other significant abnormalities are identified. BI/SCREENING MAMM (CAD), BILAT IMPRESSION: Stable bilateral screening mammogram. Yearly follow-up mammogram recommended. (A) ASSESSMENT CATEGORY: BIRADS Category 2: Benign. A letter regarding these results will be sent to the patient by the facility within 30 days. Approximately 10% of breast cancers are not detected by mammography. A normal mammogram should not delay biopsy of a clinically suspicious abnormality. [id number] Electronically Signed: Venus Piedra MD at 11:48 EDT Tel , Service support , CC: Chalino Mae DO Reverse Logistics Analyst: Signed THYROID Observed: 04/09/2018 Status: F Source: [place] 10:22 AM [facility] REPOSITORY [facility] Imaging Services [address] [place] [address] Thyroid MR#: [id number] Acct: [id number] Name: JESSICA RODRIGUEZJODIE Hayes Rep #: [id number] : 1950 F 68 From: Castillo Chapa MD PCP: Chalino Mae DO Status: REG CLI Study: Thyroid Date of Exam: 04/09/18 Exam# [id number] Ordering Dr: Chalino Mae DO STUDY: THYROID ULTRASOUND REASON FOR EXAM: Female, 68 years old. Nodules noted on MRI TECHNIQUE: Ultrasound evaluation of the thyroid was performed with real-time and static mcrae-scale imaging. COMPARISON: None. FINDINGS: RIGHT LOBE: The right lobe of the thyroid gland measures 4.5 x 2.5 x 2.1 cm. There is a homogeneous echotexture. Multiple solid/cystic complex nodules, largest measures 3.6 x 2.2 x 1.9 cm. LEFT LOBE: The left lobe of the thyroid gland measures 3.6 x 1.3 x 1.0 cm. There is a homogeneous echotexture. There are no demonstrated solid, cystic or complex lesions. ISTHMUS: The isthmus measures 3 mm. The regional lymph nodes are normal. US/Thyroid IMPRESSION: Normal sized homogeneous thyroid gland with multiple complex cysts in the right lobe. Largest measures 3.6 x 2.2 x 1.9 cm. Electronically Signed: Miguel Chapa MD at 8:26 EDT , Service support , CC: Chalino Mae DO Reverse Logistics Analyst: Signed SPINE CERVICAL Observed: 03/31/2018 Status: F Source: RE[place] (ROUTINE) 10:28 AM [facility] REPOSITORY [facility] Imaging Services [address] [place] [address] Spine Cervical (Routine) MR#: [id number] Acct: [id number] Name: ROSALVA RODRIGUEZ Rep #: [id number] : 1950 F 68 From: Jose Wick PCP: Chalino Mae DO Status: REG CLI Study: Spine Cervical (Routine) Date of Exam: 03/31/18 Exam# [id number] Ordering Dr: Chalino Mae DO STUDY: MRI CERVICAL SPINE WITHOUT CONTRAST REASON FOR EXAM: Female, 68 years old. neck pain radiating to right arm, tingling right fingers. TECHNIQUE: Standardized fat and water weighted pulse sequences were obtained in the sagittal and axial planes. COMPARISON: None FINDINGS: Normal foramen magnum and brainstem-cervical cord junction. Normal craniovertebral junction. Normal anterior atlantoaxial articulation. Normal odontoid process. There is straightening of the normal cervical lordosis. C2-3: Normal endplates. Normal disc height, signal and morphology. Normal central canal and intervertebral neural foramina. C3-4: There is minimal disc space narrowing and endplate spondylosis. There is uncovertebral facet arthropathy with mild right and severe left foraminal stenosis. There is no central canal stenosis. C4-5: There is mild disc space narrowing and endplate spondylosis. There is minimal disc osteophyte complex without central canal stenosis. There is uncovertebral facet arthropathy with mild right and moderate left foraminal stenosis. C5-6: There is moderate disc space narrowing and endplate spondylosis. There is a mild disc osteophyte complex with moderate central canal stenosis. There is uncovertebral arthropathy with moderate right and mild left foraminal stenosis. C6-7: There is moderate disc space narrowing and endplate spondylosis. There is a mild disc osteophyte complex with mild canal stenosis. There is uncovertebral arthropathy with mild bilateral foraminal stenosis. C7-T1: Normal endplates. Normal disc height, signal and morphology. Normal central canal and intervertebral neural foramina. Normal cervical cord. There is a 2 cm right thyroid nodule. Further evaluation with sonography can be obtained. MRI/Spine Cervical (Routine) IMPRESSION: C3/C4: Severe left foraminal stenosis. C4/C5: Moderate left foraminal stenosis. C5/C6: Moderate central canal stenosis. Moderate right foraminal stenosis. Electronically Signed: Jose Wick MD at 8:11 EDT Tel , Service support , CC: Chalino Mae DO Reverse Logistics Analyst: Signed CERV SPINE 4 OR 5 Observed: 03/17/2018 Status: F Source: [facility] 9:50 AM [facility] REPOSITORY [facility] Imaging Services [address] [place] [address] Cerv Spine 4 or 5 Views MR#: [id number] Acct: [id number] Name: ROSALVA RODRIGUEZ Rep #: [id number] : 1950 F 68 From: Maricarmen Ward MD PCP: Chalino Mae DO Status: REG CLI Study: Cerv Spine 4 or 5 Views Date of Exam: 03/17/18 Exam# [id number] Ordering Dr: Chalino Mae DO XR Spine Cervical 4 or 5 Views INDICATION: CERVICAL PAIN AND TINGLING RIGHT FINGERS COMPARISON: None TECHNIQUE: 6 views of the cervical spine FINDINGS: There is mild anterolisthesis of C4 on C5. Disc spaces at C5-6 and C6-7 are decreased. Marginal disc osteophytes are noted. Facet arthritic changes and uncovertebral joint hypertrophy is noted at the mid and lower cervical levels with findings suggestive of neuroforaminal narrowing. A fracture is not seen with certainty. There is normal atlantoaxial relationship. RAD/Cerv Spine 4 or 5 Views IMPRESSION: Marked degenerative changes at the cervical spine as detailed above findings suggestive of bilateral neuroforaminal narrowing at the mid and lower cervical levels. MRI may be helpful for further evaluation. at 1728 Reported and signed by: Maricarmen Ward MD Electronically Signed: Maricarmen Ward MD at 17:26 EDT Tel , Service support , CC: Chalino Mae DO Reverse Logistics Analyst: Signed CBC W/DIFF, AUTOMATED Collected: 03/17/2018 Status: F Source: [place] 9:41 AM [facility] REPOSITORY TYPE CODE TESTS RESULT OUT OF RANGE REFERENCE UNITS LAB L100.1000 4.4-11.0 K/mm3 Normal WBC 4.4 LAB L100.1200 4.2-5.4 M/mm3 Normal RBC 4.35 LAB L100.1300 12.0-15.0 g/dl Normal HGB 13.2 LAB L100.1400 37-47 % Normal HCT 40.2 LAB L100.1500 81-99 fL Normal MCV 92.4 LAB L100.1600 27.0-32.0 pg Normal MCH 30.3 LAB L100.1700 32-36 g/gl Normal MCHC 32.8 LAB L100.1810 11.6-14.6 % Normal RDW CV 13.8 LAB L100.1820 35.1-43.9 fl High RDW SD 46.6 LAB L100.1900 150-450 K/mm3 Normal PLT 282 LAB L100.2000 6.2-12.0 fl Normal MPV 9.4 LAB L100.2100 47-70 % Low NEUT% 46.2 LAB L100.2200 19-41 % Normal LY% 38.2 LAB L100.2300 0-10 % Normal MONO% 9.4 LAB L100.2400 0-5 % High EO% 5.1 LAB L100.2500 0-1 % Normal BASO% 0.9 LAB L100.2550 0.0-0.9 % Normal IM GRAN % 0.200 Result Comment: IG% - Immature Granulocytes (promyelocytes, myelocytes and metamyelocytes) > 1% indicates that a LEFT SHIFT is Present. LAB L100.2620 2.0-7.7 X10 3/uL Normal Absolute Neut 2.0 LAB L100.2720 0.83-4.51 X10 3/ul Normal Absolute Lymph 1.66 Performed By: #### L100.0100 #### [facility] [address] [place], [address] VITAMIN D,25 HYDROXY Collected: 03/17/2018 Status: F Source: [place] 9:41 AM [facility] REPOSITORY TYPE CODE TESTS RESULT OUT OF RANGE REFERENCE UNITS LAB L506.1000 29.95-100.01 ng/mL Normal Vitamin D 51.8 25-OH Result Comment: Vitamin D 25(OH) Status Range Deficiency <20 ng/mL (50nmol/L) Insuffciency 20 - 30 ng/mL (50 - 75 nmol/L) Sufficiency 30 - 100 ng/mL (75 - 250 nmol/L) Toxicity >100 ng/mL (>250 nmol/L) Performed By: #### L506.1000 #### [facility] [address] [place], [address] COMPREHENSIVE METABOLIC Collected: 03/17/2018 Status: F Source: [place] KANG 9:41 AM [facility] REPOSITORY TYPE CODE TESTS RESULT OUT OF RANGE REFERENCE UNITS LAB L501.0100 74-106 mg/dL Normal GLU 85 Result Comment: Please note revised GLUCOSE reference range effective 2017. LAB L501.1000 7-18 mg/dL Normal BUN 18 LAB L501.1100 0.55-1.02 mg/dL Normal CREAT,SERUM 0.58 Result Comment: The validity of the calculated GFR AND GFRAA in patients over 70 years has not been determined. Clinical correlation is essential. LAB L501.1110 >60 mL/min Normal EST GFR 109 Result Comment: Non- GFR Calc LAB L501.1115 >60 mL/min Normal EST GFR - AA 132 Result Comment: GFR Calc LAB L501.1300 10-20 RATIO High BUN/CRE 30.9 LAB L501.1500 6.4-8.2 g/dL T Normal PROT 7.1 LAB L501.1800 3.2-5.0 g/dL Normal ALB 3.6 LAB L501.1950 2.2-4.2 g/dL Normal GLOB 3.5 LAB L501.2000 0.9-2.4 RATIO Normal A/G 1.0 LAB L501.2200 8.5-10.1 mg/dL Low CA 8.2 LAB L501.4100 15-37 U/L Low AST 11 LAB L501.4305 45-117 U/L Normal ALK P 59 LAB L501.4405 13-56 U/L Normal ALT 20 LAB L501.4600 0.20-1.00 mg/dL T Normal BILI 0.40 LAB L501.5300 136-145 mmol/L NA Normal 142 LAB L501.5600 3.5-5.1 mmol/L K Normal 4.1 LAB L501.5900 98-107 mmol/L CL Normal 107 LAB L501.6100 21.0-32.0 mmol/L Normal CO2 28.0 LAB L501.6200 5-15 Normal GAP 7 Performed By: #### L500.4050, L500.4100 #### [facility] [address] [place], [address] LIPID PROFILE Collected: 03/17/2018 Status: F Source: [place] 9:41 AM [facility] REPOSITORY TYPE CODE TESTS RESULT OUT OF RANGE REFERENCE UNITS LAB L501.4900 200 mg/dL High CHOL 231 Result Comment: <200 mg/dL Desirable 200-240 mg/dL Borderline >240 mg/dL High Risk LAB L501.5000 mg/dL Normal TRIG 79 Result Comment: The drugs N-Acetylcysteine and Metamizole may falsely depress this assay. Serum Triglycerides Reference Interval Normal <150 mg/dL Borderline high 150 - 199 mg/dL High 200 - 499 mg/dL Very High > or = 500 mg/dL LAB L501.6400 mg/dL Normal HDL 68 Result Comment: The drugs N-Acetylcysteine and Metamizole may falsely depress this assay. Reference Range HDL <40 mg/dL Low HDL Cholesterol HDL >or= 60 mg/dL High HDL Cholesterol LAB L501.6500 0-130 mg/dL High LDL 147 LAB L501.6600 5-40 mg/dL Normal VLDL 16 Performed By: #### L500.4050, L500.4100 #### [facility] [address] [place], [address] PT D/C SUMMARY (1) Observed: 02/22/2018 Status: F Source: [place] 3:44 PM [facility] REPOSITORY [facility] Physical Therapy [address] [place] [address] Fax REHABILITATION SERVICES DISCHARGE SUMMARY MR#: [id number] Acct: [id number] Name: ROSALVA RODRIGUEZ Rep #: [id number] : 1950 68 From: Ingrid Caba PT, Cert. MDT Referring Dr.: Chalino Mae DO Status: REG RCR Insurance: MEDICARE PART A B PHYSICIAN [employer] [place] - PT D/C Summary It has been my pleasure to treat ROSALVA RODRIGUEZ under orders from Chalino Mae DO, for the diagnosis of UPPER BACK PAIN AND MUSCLE SPASMS for a total of 8 visit(s). Discharge Date: Please see the following information for a summary of their discharge status. - Subjective Subjective: PATIENT REPORTS SHE REALLY ISN'T GETTING BETTER. SHE PLANS TO GO BACK TO DR. MAE. SHE DOESN'T HAVE ANY PAIN RIGHT NOW BUT SOON SHE TURNS HER HEAD TO THE LEFT IT PROVOKES PAIN. THE PAIN WAKES HER UP AT NIGHT TOO. - Pain L UT Pain Intensity (Out of 10): 0 - Overall Improvement % Improvement: 65 - Objective Objective/Function: UPON EXAM, THERE IS NOT MUCH CHANGE SINCE INITIAL EVALUATION. Cervical Mvmt Loss: Flex: NILL. Pro: NILL. Ext: MIN +. Ret: MOD +. RSB: MIN +. LSB: MIN. R Rot: MIN. L Rot: MOD +. + ARE THE MOTIONS THAT ARE MORE LIMITED AND PROVOKE PAIN WITH TESTING. OSWESTRY SCORE HAS IMPROVED FROM 11 TO 8 THOUGH. RECOMMEND PHYSICIAN RE-CHECK. PATIENT IS AGREEABLE. - Goals Goal 1:: DECREASE C/O NECK AND UPPER BACK PAIN Goal Progress: Not Progressing Goal 2:: IMPROVE BENDING, LIFTING, REACHING, ADL AND SLEEP FUNCTION Goal Progress: Not Progressing Goal 3:: INSTRUCT IN PROPHYLAXIS Goal Progress: Not Progressing - Plan Plan: D/C WITH RECOMMENDATION TO FOLLOW UP WITH DR. MAE. PATIENT IS AGREEABLE. - D/C Information If there are questions or concerns regarding this patient's physical therapy, please feel free to call me at [phone]. Thank you for the referral of this patient. Sincerely, Ingrid Caba <Electronically signed by Cert. JOSE Carmona PTT> 02/22/18 1544 CC: Chalino Mae DO MICHELLE Signed INITAL EVALUATION (1) Observed: 01/27/2018 Status: F Source: [place] - PT 3:57 PM [facility] REPOSITORY [facility] Physical Therapy [facility] 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 Date of Evaluation: 01/27/18 Physical Therapist: Ingrid Salter Cross - Visit Plan Frequency: 2-3x /Week Duration: 4-6 Weeks Plan: CERVICAL US AND STM. POSTURE CORRECTION/STRENGTHENING, INSTRUCTION IN APPROPRIATE BODY MECHANICS AND ACTIVITY MODIFICATIONS. KATIA UE ROM, STRETCHING AND STRENGTHENING. HEP INSTRUCTION. 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 Disability: NO. Present symptoms: NECK PAIN. UPPER BACK PAIN. NO SHOULDER PAIN. NO UE PAIN, NUMBNESS OR TINGLING EXCEPT SHE DOES MENTION SOME HAND TINGLING AT NIGHT/MORNING. Present since: ABOUT 2 MONTHS AGO. Pain Scale: WORST 10/10, LEAST 1/10. Currently: 11/11. Commenced as a result of: NO APPARENT REASON. Symptoms at onset: UPPER BACK. Worse: TALKING ON PHONE AT WORK, TRYING TO SLEEP, BEING ON IPAD, READING, DRIVING, TURNING HEAD, LOOKING UP AND DOWN. Better: HEAT, STRETCHING, BIOFREEZE, MASSAGE. Disturbed sleep: YES. Previous history/Previous treatment: ABOUT A 5 YEAR HISTORY OF NECK/UPPER BACK CHIROPRACTIC TREATMENTS NEEDED. Dizziness: NO. Tinnitis: NO. Nausea: NO. Difficulty Swollowing: NO. Gait: NORMAL. Accidents: NO. Unexplained weight loss: NO. Imaging: NO. PMH: HTN, HYPERLIPIDEMIA, PALPITATIONS, REFLUX, LUMBAR SPINAL STENOSIS, VITAMIN D DEFICIENCY, ANXIETY, VERTIGO, OA, BACK SURGERY 2015 - Objective Sitting Posture: POOR. FORWARD HEAD AND ROUNDED SHOULDERS. Active Correction of posture: BETTER. Other Observations: INDEP GAIT AND TRANSFERS. PLEASANT AND COOPERATIVE TO WORK WITH. Motor deficit: KATIA UE STRENGTH 4-5/5 WITH MMT'ING AND TESTING DOES NOT PROVOKE NECK PAIN BUT HER SCAPULA ARE WEAK. Sensory deficit: KATIA UE LIGHT TOUCH SENSATION ARE INTACT AND SYMMETRICAL. ROM deficit: KATIA UE'S WFL. Reflexes: 2/3 KATIA UE'S. Dural Signs: NEGATIVE KATIA UE'S. Cervical Mvmt Loss: Flex: NILL. Pro: NILL. Ext: MOD +. Ret: DEBBI +. RSB: MOD +. LSB: MIN. R Rot: MIN. L Rot: MOD +. + ARE THE MOTIONS THAT ARE MORE LIMITED AND PROVOKE PAIN WITH TESTING. Postural strength: POOR. Palpation: NO ACUTE LOCALIZED TENDERNESS OF UPPER THORACIC OR CERVICAL VERTEBRAE BUT SHE HAS INCREASED MUSCLE TONE OF KATIA UPPER TRAPS AND PARASPINALS. OTHER: GENTLE CERCICAL DISTRACTION TESTING HAS NO EFFECT OTHER THAN STRETCHING DOWN TO LOW BACK. - Goals Goal 1:: DECREASE C/O NECK AND UPPER BACK PAIN Goal Time Frame: 4-6 Weeks Goal 2:: IMPROVE BENDING, LIFTING, REACHING, ADL AND SLEEP FUNCTION Goal Time Frame: 4-6 Weeks Goal 3:: INSTRUCT IN PROPHYLAXIS Goal Time Frame: 4-6 Weeks - Rehabilitation Potential Rehabilitation Potential: Fair - Anticipated Interventions Patient/Client Instruction: Educate patient on: Condition, Plan of Care, Risk Factors, Benefits of Fitness Program For the Purpose of:: To improve self management Therapeutic Exercise to Include: Strength training, Body mechanics, Postural training, Flexibilty training, Active ROM, Scapular Strength/Stabilization For the Purpose of:: To improve ability of physical actions for home/community/work/leisure Manual Therapy Techniques to Include: Soft tissue mobilization For the Purpose of:: To decrease pain, To increase ROM Thermo therapy (hot pack): Yes Ultrasound (thermal/non thermal): Yes For the Purpose of:: To decrease pain, To decrease swelling/inflammation, To increase ROM Thank you for the opportunity to evaluate your patient. For Medicare and Medicare HMO plans, please review the plan of care and approve it. It will need to be FAXED BACK to us at [phone] for Medicare purposes. Please let me know if there are questions or concerns regarding this plan of care. Physician Signature: Date: <Electronically signed by Ingrid Caba PT, Cert. MDT> 01/27/18 1557 CC: Chalino Mae DO MICHELLE Signed For Medicare only, by signing this I certify the plan of care. Physicians Signature Date ALLERGIES ALLERGIES DATE TYPE / CODE NAME / CODE REACTION SEVERITY SOURCE 05/10/2018 Drug ciprofloxacin/F0060 Unknown Unknown [place] Allergy/416 58249(RXNORM) [facility] 409646([facility]) Repository 02/05/2016 Drug ciprofloxacin Unknown Unknown [place] Allergy/416 HCl/[id number](RXNO [facility] 393951([facility]) Repository ENCOUNTERS ENCOUNTERS ADMIT/DISCHARGE ACCOUNT ADMITTING ENCOUNTER LOCATION SOURCE NUMBER CLASS 10/20/2018 [id number] Ambulatory [facility] 8 [facility] Hospital ing:US Repository 06/08/2018 [id number] Ambulatory [place] 8 [facility] Hospital ing:OPBD Repository 05/26/2018 [id number] Ambulatory BMS[facility]:B [place] 7 [facility] Repository 05/10/2018/ [id number] Ambulatory BMSBuilding:B [place] 8 2 [facility] Hospital Repository 04/28/2018 [id number] [facility] [place] [facility] Repository 04/21/2018 [id number] Ambulatory [place] [facility] ing:RAD Repository 04/19/2018 [id number] [place] [facility] ing:BFHLAB Repository 04/12/2018 [id number] Ambulatory [place] [facility] ing:OPBI Repository 04/09/2018 [id number] Amb[facility] [place] [facility] ing:OPUS Repository 03/31/2018 [id number] Amb[facility] [place] [facility] ing:MRI Repository 03/17/2018 [id number] Ambulatory [facility] ing:BFHLAB Repository 03/08/2018 [id number] Ambulatory [place] [facility] ing:LAB.NATALIYA Repository E 02/22/2018/ [id number] [place] 8 2 [facility] ing:PT Repository PAYERS PAYERS ENCOUNTER GUARANTOR PAYER SUBSCRIBER SOURCE 10/20/2018 SERGEI Ramos Primary ROSALVA D [place] [id number] Insurance:MEDICARE DANNERDOB: [facility] PART A [facility] [id number] Number: Repository [id number]: 330 [id number] [phone] () Date:2018-09-17 10/20/2018 Secondary ROSALVA D [place] Insurance:PHYSICIAN DANNERDOB: [facility] [id number] Hospital Number: Repository [id number] Date:0440-10-09XC [address] [address]VY: 10/20/2018 Tertiary NOT GIVENUNK [place] Insurance:SELF PAY [facility] Number: Effective Repository Date:2018-09-17 06/08/2018 SERGEI Ramos Primary ROSALVA D [place] [id number] Insurance:MEDICARE DANNERDOB: [facility] PART A [facility] [id number] Number: Repository [id number]: 330 [id number] [phone] () Date:2018-05-12 06/08/2018 Secondary ROSALVA D [place] Insurance:PHYSICIAN DANNERDOB: [facility] MUTUAL INS [facility] [id number] Hospital Number: Repository [id number] Date:0304-03-95OO [address] [place] [address]FX: 06/08/2018 Tertiary NOT GIVENUNK [place] Insurance:SELF PAY [facility] Number: Effective Repository Date:2018-05-12 05/26/2018 SERGEI Ramos Primary ROSALVA D [place] [id number] Insurance:MEDICARE DANNERDOB: [facility] PART A [facility] [id number] Number: Repository [id number]: 330 [id number] [phone] () Date:2018-05-26 05/26/2018 Secondary ROSALVA D [place] Insurance:PHYSICIAN DANNERDOB: Community M[employer] INS [employer] [id number] Hospital Number: Repository [id number] Date:[id number] [address]SR: 05/26/2018 Tertiary NOT GIVENUNK [place] Insurance:SELF PAY [facility] Number: Effective Repository Date:2018-05-26 05/10/2018 SERGEI Ramos Primary ROSALVA D [place] [id number] Insurance:MEDICARE DANNERDOB: Community [place]EREMÍAS PART A [facility] [id number] Number: Repository [id number]: 330 [id number] [phone] () Date:2018-04-15 05/10/2018 Secondary ROSALVA D [place] Insurance:PHYSICIAN DANNERDOB: Community [employer] INS [employer] [id number] Hospital Number: Repository [id number] Date:8614-79-23LY [address] [address]CW: 05/10/2018 Tertiary NOT GIVENUNK [place] Insurance:SELF PAY [facility] Number: Effective Repository Date:2018-05-10 04/28/2018 SERGEI Ramos Primary ROSALVA D [place] [id number] Insurance:MEDICARE DANNERDOB: Community [facility]EM[facility] [id number] Number: Repository [id number]: 330 [id number] [phone] () Date:2018-04-20 04/28/2018 Secondary ROSALVA D [place] Insurance:PHYSICIAN DANNERDOB: Community [employer] [id number] Hospital Number: Repository [id number] Date:[id number] [address]UD: 04/28/2018 Tertiary NOT GIVENUNK [place] Insurance:SELF PAY [facility] Number: Effective Repository Date:2018-04-20 04/21/2018 SERGEI Ramos Primary ROSALVA D [place] [id number] Insurance:MEDICARE DANNERDOB: Community [place]EREMÍAS PART A [facility] [id number] Number: Repository [address]Nkf: 330 [id number] [phone] () Date:2018-04-21 04/21/2018 Secondary ROSALVA D [place] Insurance:PHYSICIAN DANNERDOB: Community [facility] [id number] Hospital Number: Repository [id number] Date:[id number] [address]HZ: 04/21/2018 Tertiary NOT GIVENUNK [place] Insurance:SELF PAY [facility] Number: Effective Repository Date:2018-04-21 04/19/2018 SERGEI Ramos Primary ROSALVA D [place] [id number] Insurance:MEDICARE DANNERDOB: Community JEREMÍAS PART A [facility] [id number] Number: Repository [address]Iso: 330 [id number] [phone] () Date:2018-04-19 04/19/2018 Secondary ROSALVA D [place] Insurance:PHYSICIAN DANNERDOB: Community [facility] [id number] Hospital Number: Repository [id number] Date:[id number] [address]EP: 04/19/2018 Tertiary NOT GIVENUNK [place] Insurance:SELF PAY [facility] Number: Effective Repository Date:2018-04-19 04/12/2018 SERGEI Ramos Primary ROSALVA D [place] [id number] Insurance:MEDICARE DANNERDOB: Community JEREMÍAS PART A [facility] [id number] Number: Repository [address]Nzm: 330 [id number] [phone] () Date:2018-03-17 04/12/2018 Secondary ROSALVA D [place] Insurance:PHYSICIAN DANNERDOB: Community [employer]UAL INS [employer] [id number] Hospital Number: Repository [id number] Date:[id number] [address] [address]BT: 04/12/2018 Tertiary NOT GIVENUNK [place] Insurance:SELF PAY [facility] Effective Rep[facility] Date:2018-03-17 04/09/2018 SERGEI Rachel Primary ROSALVA D [place] [id number] Insurance:MEDICARE DANNERDOB: Community JEREMÍAS PART A [facility] [id number] [id number]: 330 [id number] [phone] (HP) Date:2018-04-01 04/09/2018 Secondary ROSALVA D [place] Insurance:PHYSICIAN DANNERDOB: Community [facility] [id number] Hospital Number: Repository [id number] Date:[id number] [address] [address]AO: 04/09/2018 Tertiary NOT GIVENUNK [place] Insurance:SELF PAY [facility] Number: Effective Repository Date:2018-04-01 03/31/2018 SERGEI Ramos Primary ROSALVA D [place] [id number] Insurance:MEDICARE DANNERDOB: Community JEREMÍAS PART A [id number] [place] [facility] [id number]: 330 [id number] [phone] () Date:2018-03-22 03/31/2018 Secondary ROSALVA D [place] Insurance:PHYSICIAN DANNERDOB: Community [facility] [id number] Hospital Number: Repository [id number] Date:[id number] [address] [address]VT: 03/31/2018 Tertiary NOT GIVENUNK [place] Insurance:SELF PAY [facility] Number: Effective Repository Date:2018-03-22 03/17/2018 SERGEI Ramos Primary ROSALVA D [place] [id number] Insurance:MEDICARE DANNERDOB: Community JEREMÍAS PART A [facility] [id number] [id number]: 330 [id number] [phone] () Date:2018-03-17 03/17/2018 Secondary ROSALVA D [place] Insurance:PHYSICIAN DANNERDOB: Community [employer] INS [employer] [id number] Hospital Number: Repository [id number] Date:[id number] [address]LC: 03/17/2018 Tertiary NOT GIVENUNK [place] Insurance:SELF [facility] Effective Repository Date:2018-03-17 03/08/2018 SERGEI E Primary ROSALVA D [place] [id number] Insurance:MEDICARE DANNERDOB: Community JEREMÍAS PART A [facility] [id number] Number[place] [id number]: [phone] [id number] [phone] () Date:2004-01-01 03/08/2018 Secondary ROSALVA D [place] Insurance:PHYSICIAN DANNERDOB: Community M[employer] INS [employer] [id number] Hospital Number: Repository [id number] Date:[id number] [address]HB: 03/08/2018 Tertiary NOT GIVENUNK [place] Insurance:SELF PAY [facility] Number: Effective Repository Date:2017-10-01 02/22/2018 SERGEI E Primary ROSALVA D [place] [id number] Insurance:MEDICARE DANNERDOB: Community JEREMÍAS PART A [facility] [id number] Number[place] [id number]: 330 [id number] [phone] () Date:2013-12-31 02/22/2018 Secondary ROSALVA D [place] Insurance:PHYSICIAN DANNERDOB: Community M[employer] INS [employer] [id number] Hospital Number: Repository [id number] Date:[id number] [address]NF: 02/22/2018 Tertiary NOT GIVENUNK [place] Insurance:SELF PAY [facility] Number: Effective Repository Date:2018-01-19
== END ==
PROVIDERS: Family Provider Family Medicine; PCP Family Medicine; Referring Provider Otolaryngology; Visit Provider Otolaryngology
DX: E04.2 Nontoxic multinodular goiter (principal)
CPT/HCPCS: 76536

== ENCOUNTER → 2019-02-21 13:02 | Outpatient (CLI) | payer MEDICARE, OTHER, SELFPAY ==
[2018-05-10 14:34] VITALS: BMI 27.0
--- NOTE | 2019-02-21 13:05 | RAD_ITS ---
STUDY: X-RAY - LEFT FOOT CLINICAL: Lateral foot pain, fall. TECHNIQUE: 3 view(s) of the foot. COMPARISON: None. FINDINGS: There are very small posterior and plantar calcaneal enthesophytes. Normal visualized subtalar, talonavicular, calcaneocuboid, tarsal and tarsometatarsal articulations. There is a nondisplaced transverse fracture of the fifth metatarsal head, likely nonacute since there are sclerotic margins. Normal metatarsophalangeal joint of the great toe. Normal tibial and fibular sesamoid bones. Normal interphalangeal joint of the great toe. Normal phalanges of the great toe. Normal second through fifth metatarsophalangeal joints. Normal interphalangeal joints and phalanges of the lesser toes. The soft tissue structures are unremarkable. RAD/Foot min 3 Views IMPRESSION: Fifth metatarsal fracture, likely nonacute. Electronically Signed: Sergio Cheney MD at 13:25 EDT Tel , Service support ,
== END ==
PROVIDERS: Family Provider Family Medicine; PCP Family Medicine; Referring Provider Physician Assistant; Visit Provider Physician Assistant
DX: T14.90XA Injury, unspecified, initial encounter (principal)
CPT/HCPCS: 73630

== ENCOUNTER → 2019-03-09 10:01 | Outpatient (CLI) | payer MEDICARE, OTHER, SELFPAY ==
[2019-02-21 13:04] VITALS: BMI 28.3
[2019-03-09 12:34] LABS: Absolute Lymphocyte Count 1.73 X10^3/ul (0.83-4.51); Absolute Neutrophil Count 2.8 X10^3/uL (2.0-7.7); Basophil# 0.05 X10^3/uL; Eosinophil# 0.15 X10^3/uL; Eosinophils% 2.9 % (0-5); Hemoglobin 13.8 g/dl (12.0-15.0); Lymphocyte # 1.73 X10^3/ul (4.0); Lymphocyte % 33.2 % (19-41); Mean Corp Hgb Conc 32.9 g/gl (32-36); Mean Corpuscular Hgb 31.3 pg (27.0-32.0); Mean Corpuscular Volume 95.2 fL (81-99); Mean Platelet Vol. 9.2 fl (6.2-12.0); Monocyte# 0.52 X10^3/uL; Neutrophil # 2.75 X10^3/uL (2.7-7.7); Neutrophil % 52.7 % (47-70); Platelet Count 305 K/mm3 (150-450); RBC Distribution Width CV 13.1 % (11.6-14.6); RBC Distribution Width SD 45.6 fl (35.1-43.9); Red Blood Count 4.41 M/mm3 (4.2-5.4); White Blood Count 5.2 K/mm3 (4.4-11.0)
[2019-03-09 12:46] LABS: POSITIVE COUNT NO; POSITIVE DIFFERENTIAL NO; POSITIVE MORPHOLOGY NO
[2019-03-09 12:59] LABS: Vitamin D,25 Hydroxy 33.4 ng/mL (29.95-100.01)
[2019-03-09 13:08] LABS: ALB/GLOB Ratio 1.1 RATIO (0.9-2.4); AST(SGOT) 17 U/L (15-37); Alanine Aminotransfer ALT/SGPT 26 U/L (13-56); Albumin, Serum 3.7 g/dL (3.2-5.0); Alkaline Phosphatase 54 U/L (45-117); Anion Gap 5 (5-15); BUN 17 mg/dL (7-18); BUN/Creat Ratio 25.6 RATIO (10-20); Calcium,Total 8.1 mg/dL (8.5-10.1); Chloride 105 mmol/L (98-107); Cholesterol 282 mg/dL (200); Creatinine, Serum 0.66 mg/dL (0.55-1.02); EST Glomerular Filtration Rate 93 mL/min (>60); Est Glom Filt Rate - Afr Amer 113 mL/min (>60); Globulin 3.5 g/dL (2.2-4.2); Glucose 90 mg/dL (74-106); High Density Lipoprotein 87 mg/dL; Potassium 4.3 mmol/L (3.5-5.1); Protein, Total 7.2 g/dL (6.4-8.2); Sodium Level 138 mmol/L (136-145); T4 Free Direct 0.84 ng/dL (0.76-1.46); Thyroid Stim Hormone (TSH) 3.14 uIU/mL (0.358-3.74); Triglycerides 77 mg/dL; Very Low Density Lipoprotein 15 mg/dL (5-40)
== END ==
PROVIDERS: Family Provider Family Medicine; PCP Family Medicine; Visit Provider Family Medicine
DX: I10 Essential (primary) hypertension (principal); E78.5 Hyperlipidemia, unspecified; E55.9 Vitamin D deficiency, unspecified; E04.1 Nontoxic single thyroid nodule; S92.355A Nondisplaced fracture of fifth metatarsal bone, left foot, initial encounter for closed fracture
CPT/HCPCS: 36415; 80053; 80061; 82306; 84439; 84443; 85025

== ENCOUNTER → 2019-06-09 14:42 | Outpatient (CLI) | payer MEDICARE, OTHER, SELFPAY ==
[2019-02-21 13:04] VITALS: BMI 28.3
--- NOTE | 2019-06-09 14:49 | BI_ITS ---
MAMMOGRAPHY - BILATERAL SCREENING REASON FOR EXAM: Female, 69 years old. Routine annual screening examination. PERTINENT HISTORY: Non-contributory. Minimal bilateral excisional breast biopsies. TECHNIQUE: Digital bilateral breast melyssa (3D mammographic acquisition) in the CC and MLO projections. 2-D mediolateral oblique (MLO) and craniocaudad (CC) views of both breasts were obtained. CAD: Full Field Digital Mammography with Computer Added Detection was performed. COMPARISON: Comparison is made with prior study dated April 12, 2018 and March 10, 2017. FINDINGS: Breast Composition: The breasts are almost entirely fatty. There are no dominant masses or suspicious calcifications. Stable small benign-appearing bilateral axillary vessels. No other significant abnormalities are identified. There has been no significant change since the prior study. BI/SCREEN MAMM (CAD) W/MELYSSA BILAT IMPRESSION: Stable bilateral screening mammogram. Yearly follow-up mammogram recommended. (A) ASSESSMENT CATEGORY: BIRADS Category 2: Benign. A letter regarding these results will be sent to the patient by the facility within 30 days. Approximately 10% of breast cancers are not detected by mammography. A normal mammogram should not delay biopsy of a clinically suspicious abnormality. [id number] Electronically Signed: Matias Lion, at 8:55 EDT , Service support ,
== END ==
PROVIDERS: Family Provider Family Medicine; PCP Family Medicine; Referring Provider Family Medicine; Visit Provider Family Medicine
DX: Z12.31 Encounter for screening mammogram for malignant neoplasm of breast (principal)
CPT/HCPCS: 77063; 77067

== ENCOUNTER → 2019-10-03 15:26 | Outpatient (CLI) | payer MEDICARE, OTHER, SELFPAY ==
[2019-02-21 13:04] VITALS: BMI 28.3
--- NOTE | 2019-10-03 15:28 | US_ITS ---
STUDY: THYROID ULTRASOUND REASON FOR EXAM: Female, 69 years old. Follow-up nodule TECHNIQUE: Ultrasound evaluation of the thyroid was performed with real-time and static mcrae-scale imaging. COMPARISON: 10/20/2018. FINDINGS: RIGHT LOBE: The right lobe of the thyroid gland measures 4.4 x 2.4 x 1.8 cm. There is a homogeneous echotexture. There is a 3.4 cm complex mass, which previously measured 3.3 cm, which is no significant change. LEFT LOBE: The left lobe of the thyroid gland measures 4.0 x 1.4 x 1.2 cm. There is a homogeneous echotexture. There are no demonstrated solid, cystic or complex lesions. ISTHMUS: The isthmus measures 3 mm . The regional lymph nodes are normal. US/Thyroid IMPRESSION: Stable complex solid 3.3 cm right lobe mass. Recommend continued follow-up. Electronically Signed: Thanh Naqvi MD at 22:31 EST , Service support ,
== END ==
PROVIDERS: Family Provider Family Medicine; PCP Family Medicine; Referring Provider Otolaryngology; Visit Provider Otolaryngology
DX: E04.2 Nontoxic multinodular goiter (principal)
CPT/HCPCS: 76536

== ENCOUNTER → 2020-03-12 | Outpatient (CLI) | payer MEDICARE, OTHER, SELFPAY ==
[2019-10-04 14:19] VITALS: BMI 28.3
== END | disposition home or self-care (01) ==
LOC: RAD.FUTURE 15:47
PROVIDERS: PCP Family Medicine; Referring Provider Family Medicine; Visit Provider Family Medicine
DX: R19.7 Diarrhea, unspecified (principal)

== ENCOUNTER → 2020-03-13 | Outpatient (CLI) | payer MEDICARE, OTHER, SELFPAY ==
[2019-10-04 14:19] VITALS: BMI 28.3
--- NOTE | 2020-03-13 08:42 | RAD_ITS ---
STUDY: X-RAY - ABDOMEN/PELVIS REASON FOR EXAM: Female, 70 years old. Diarrhea x 6 weeks, small stool caliber, nausea, family history colon cancer TECHNIQUE: Single AP view of the abdomen / pelvis. COMPARISON: None. FINDINGS: There is a moderate amount of colonic fecal material. The visualized liver, spleen and kidneys are grossly normal in size and morphology. Normal soft tissue structures. Prior laminectomy and fusion at the L4-L5 level. RAD/Abdomen Single View IMPRESSION: Moderate amount of fecal material is seen throughout the colon. Electronically Signed: Matias Lion, at 8:59 EDT , Service support ,
== END | disposition home or self-care (01) ==
LOC: HPRAD 08:30
PROVIDERS: PCP Family Medicine; Referring Provider Family Medicine; Visit Provider Family Medicine
DX: R19.7 Diarrhea, unspecified (principal)
CPT/HCPCS: 74018

== ENCOUNTER → 2020-05-25 | Outpatient (CLI) | payer MEDICARE, OTHER, SELFPAY ==
[2019-10-04 14:19] VITALS: BMI 28.3
[2020-05-25 12:42] LABS: ALB/GLOB Ratio 1.1 RATIO (0.9-2.4); AST(SGOT) 21 U/L (15-37); Alanine Aminotransfer ALT/SGPT 30 U/L (13-56); Albumin, Serum 3.8 g/dL (3.2-5.0); Alkaline Phosphatase 60 U/L (45-117); Anion Gap 4 (5-15); BUN 18 mg/dL (7-18); Calcium,Total 8.7 mg/dL (8.5-10.1); Chloride 107 mmol/L (98-107); Cholesterol 246 mg/dL (200); Creatinine, Serum 0.58 mg/dL (0.55-1.02); EST Glomerular Filtration Rate 109 mL/min (>60); Est Glom Filt Rate - Afr Amer 132 mL/min (>60); Globulin 3.6 g/dL (2.2-4.2); Glucose 90 mg/dL (74-106); High Density Lipoprotein 73 mg/dL; Potassium 4.2 mmol/L (3.5-5.1); Protein, Total 7.4 g/dL (6.4-8.2); Sodium Level 140 mmol/L (136-145); T4 Free Direct 0.89 ng/dL (0.76-1.46); Thyroid Stim Hormone (TSH) 3.89 uIU/mL (0.358-3.74); Triglycerides 116 mg/dL; Very Low Density Lipoprotein 23 mg/dL (5-40)
[2020-05-25 12:44] LABS: Absolute Lymphocyte Count 1.63 X10^3/uL (0.83-4.51); Absolute Neutrophil Count 3.2 X10^3/uL (2.0-7.7); Basophil# 0.08 X10^3/uL; Basophil% 1.4 % (0-1); Eosinophil# 0.24 X10^3/uL; Eosinophils% 4.2 % (0-5); Hematocrit 42.9 % (37-47); Lymphocyte # 1.63 X10^3/ul (4.0); Lymphocyte % 28.5 % (19-41); Mean Corp Hgb Conc 32.6 g/dL (32-36); Mean Corpuscular Hgb 31.7 pg (27.0-32.0); Mean Corpuscular Volume 97.1 fL (81-99); Mean Platelet Vol. 9.7 fl (6.2-12.0); Monocyte# 0.58 X10^3/uL; Monocyte% 10.2 % (0-10); NRBC Flagged by Analyzer 0 % (0-5); Neutrophil # 3.15 X10^3/uL (2.7-7.7); Neutrophil % 55.2 % (47-70); Platelet Count 296 K/mm3 (150-450); RBC Distribution Width CV 12.2 % (11.6-14.6); RBC Distribution Width SD 43.6 fl (35.1-43.9); Red Blood Count 4.42 M/mm3 (4.2-5.4); White Blood Count 5.7 K/mm3 (4.4-11.0)
[2020-05-25 12:47] LABS: Vitamin D,25 Hydroxy 60.4 ng/mL
== END | disposition home or self-care (01) ==
LOC: BFHLAB 10:02
PROVIDERS: PCP Family Medicine; Visit Provider Family Medicine
DX: I10 Essential (primary) hypertension (principal); E78.5 Hyperlipidemia, unspecified; E55.9 Vitamin D deficiency, unspecified; E04.2 Nontoxic multinodular goiter; R00.2 Palpitations
CPT/HCPCS: 36415; 80053; 80061; 82306; 84439; 84443; 85025

== ENCOUNTER → 2020-06-13 | Outpatient (CLI) | payer MEDICARE, OTHER, SELFPAY ==
[2019-10-04 14:19] VITALS: BMI 28.3
--- NOTE | 2020-06-13 10:36 | BI_ITS ---
MAMMOGRAPHY - BILATERAL SCREENING REASON FOR EXAM: Female, 70 years old. Routine annual screening examination. PERTINENT HISTORY: Non-contributory. TECHNIQUE: Digital bilateral breast melyssa (3D mammographic acquisition) in the CC and MLO projections. 2-D mediolateral oblique (MLO) and craniocaudad (CC) views of both breasts were obtained. CAD: Full Field Digital Mammography with Computer Added Detection was performed. COMPARISON: Comparison is made with prior examination of 06/09/2019 and 04/12/2018. FINDINGS: Breast Composition: The breasts are almost entirely fatty. There are no dominant masses or suspicious calcifications. Stable benign-appearing bilateral axillary lymph nodes. No other significant abnormalities are identified. There has been no significant change since the prior study. BI/SCREEN MAMM (CAD) W/MELYSSA BILAT IMPRESSION: Stable bilateral screening mammogram. Yearly follow-up mammogram recommended. (A) ASSESSMENT CATEGORY: BIRADS Category 2: Benign. A letter regarding these results will be sent to the patient by the facility within 30 days. Approximately 10% of breast cancers are not detected by mammography. A normal mammogram should not delay biopsy of a clinically suspicious abnormality. [id number] Electronically Signed: Matias Lion, at 14:20 EDT , Service support ,
== END | disposition home or self-care (01) ==
LOC: OPBI 10:36
PROVIDERS: PCP Family Medicine; Referring Provider Nurse Practitioner Women's Health; Visit Provider Nurse Practitioner Women's Health
DX: Z12.31 Encounter for screening mammogram for malignant neoplasm of breast (principal)
CPT/HCPCS: 77063; 77067

== ENCOUNTER → 2020-09-21 13:22 | Outpatient (CLI) | payer MEDICARE, OTHER, SELFPAY ==
[2019-10-04 14:19] VITALS: BMI 28.3
[2020-09-21 16:04] LABS: Anion Gap 5 (5-15); BUN 22 mg/dL (7-18); BUN/Creat Ratio 33.7 RATIO (10-20); Calcium,Total 8.7 mg/dL (8.5-10.1); Chloride 108 mmol/L (98-107); Creatinine, Serum 0.65 mg/dL (0.55-1.02); EST Glomerular Filtration Rate 95 mL/min (>60); Est Glom Filt Rate - Afr Amer 115 mL/min (>60); Glucose 78 mg/dL (74-106); Potassium 3.8 mmol/L (3.5-5.1); Sodium Level 140 mmol/L (136-145)
[2020-09-21 16:16] LABS: Microalbumin,Random Urine < 5.0 mg/L (NO RANGE EST.)
== END ==
PROVIDERS: PCP Family Medicine; Visit Provider Family Medicine
DX: I10 Essential (primary) hypertension (principal)
CPT/HCPCS: 36415; 80048; 82043; 82570

== ENCOUNTER → 2020-12-12 14:25 | Outpatient (CLI) | payer MEDICARE, OTHER, SELFPAY ==
[2020-10-17 09:14] VITALS: BMI 28.8
--- NOTE | 2020-12-12 14:27 | US_ITS ---
STUDY: ULTRASOUND OF THE FEMALE PELVIS - COMPLETE REASON FOR EXAM: Female, 70 years old. RLQ PAIN LMP: Postmenopausal. TECHNIQUE: Transabdominal TECHNICAL QUALITY: Adequate. COMPARISON: None. FINDINGS: The uterus is anteverted and is in a midline position. The uterus measures 6.4 cm x 4.1 cm x 2 cm. Normal uterine cervix. The endometrium measures 2.3 mm in thickness, and is hyperechoic. There is no demonstrated endometrial mass. There is no demonstrated myometrial mass. I.U.D. - The patient does not have an I.U.D. The right ovary is visualized. The right ovary measures 1.9 cm x 1.6 cm x 0.9 cm. There is no right ovarian cyst or ovarian mass. There is no visualized right adnexal mass or complex lesion. There is normal arterial and normal venous vascularity. The left ovary is visualized. The left ovary measures 1.3 cm x 1.7 cm x 0.7 cm. There is no left ovarian cyst or ovarian mass. There is no visualized left adnexal mass or complex lesion. There is normal arterial and normal venous vascularity. There is no fluid in the cul-de-sac. The pre void volume of the bladder was 378 ml. US/Pelvic (Non ) IMPRESSION: Normal female pelvis. Electronically Signed: Matias Lion MD at 15:34 EST , Service support ,
== END ==
PROVIDERS: PCP Family Medicine; Referring Provider Nurse Practitioner Women's Health; Visit Provider Nurse Practitioner Women's Health
DX: R10.2 Pelvic and perineal pain (principal)
CPT/HCPCS: 76856

== ENCOUNTER → 2021-06-26 13:33 | Outpatient (CLI) | payer MEDICARE, OTHER, SELFPAY ==
[2020-10-17 09:14] VITALS: BMI 28.8
--- NOTE | 2021-06-26 13:50 | BI_ITS ---
MAMMOGRAPHY - BILATERAL SCREENING REASON FOR EXAM: Female, 71 years old. Routine annual screening examination. PERTINENT HISTORY: Non-contributory. History of remote bilateral excisional breast biopsies. TECHNIQUE: Digital bilateral breast melyssa (3D mammographic acquisition) in the CC and MLO projections. 2-D mediolateral oblique (MLO) and craniocaudad (CC) views of both breasts were obtained. CAD: Full Field Digital Mammography with Computer Added Detection was performed. COMPARISON: Comparison is made with prior examination 06/13/2020 and 06/09/2019. FINDINGS: Breast Composition: The breasts are almost entirely fatty. There are no dominant masses or suspicious calcifications. Stable benign-appearing bilateral axillary lymph nodes. No other significant abnormalities are identified. There has been no significant change since the prior study. BI/SCRN MAMM (CAD)W/MELYSSA BILAT IMPRESSION: Stable bilateral screening mammogram. Yearly follow-up mammogram recommended. (A) ASSESSMENT CATEGORY: BIRADS Category 2: Benign. A letter regarding these results will be sent to the patient by the facility within 30 days. Approximately 10% of breast cancers are not detected by mammography. A normal mammogram should not delay biopsy of a clinically suspicious abnormality. [id number] Electronically Signed: Matias Lion MD at 14:48 EDT , Service support ,
== END ==
PROVIDERS: PCP Family Medicine; Referring Provider Family Medicine; Visit Provider Family Medicine
DX: Z12.31 Encounter for screening mammogram for malignant neoplasm of breast (principal)
CPT/HCPCS: 77063; 77067

== ENCOUNTER → 2021-09-20 11:22 | Outpatient (CLI) | payer MEDICARE, OTHER, SELFPAY ==
--- NOTE | 2021-09-20 11:24 | US_ITS ---
STUDY: THYROID ULTRASOUND REASON FOR EXAM: Female, 71 years old. Abnormal thyroid function tests TECHNIQUE: Ultrasound evaluation of the thyroid was performed with real-time and static mcrae-scale imaging. COMPARISON: 10/03/2019 FINDINGS: RIGHT LOBE: The right lobe of the thyroid gland measures 4.5 x 2.6 x 1.6 cm. There is a homogeneous echotexture. There is a stable solid/cystic complex 3.5 x 2.1 x 1.6 cm nodule LEFT LOBE: The left lobe of the thyroid gland measures 3.5 x 1.4 x 1.0 cm. There is a homogeneous echotexture. There are no demonstrated solid, cystic or complex lesions. ISTHMUS: The isthmus measures 3 mm. The regional lymph nodes are normal. US/Thyroid IMPRESSION: Borderline enlarged right lobe of the thyroid gland containing a complex stable solid/cystic 3.5 x 2.1 x 1.6 cm nodule. Since it has remained stable for almost 2 years, no specific follow-up is needed. Electronically Signed: Miguel Chapa MD at 17:08 EST , Service support ,
== END ==
PROVIDERS: PCP Family Medicine; Referring Provider Otolaryngology; Visit Provider Otolaryngology
DX: E04.2 Nontoxic multinodular goiter (principal)
CPT/HCPCS: 76536

== ENCOUNTER → 2021-10-31 08:53 | Outpatient (CLI) | payer MEDICARE, OTHER, SELFPAY ==
--- NOTE | 2021-10-31 08:56 | US_ITS ---
EXAM: US ABDOMEN LIMITED, RIGHT UPPER QUADRANT CLINICAL INDICATION: RUQ PAIN TECHNIQUE: Real-time ultrasound of the right upper quadrant with image documentation. This report was created using [employer] report [employer] technology. COMPARISON: None. FINDINGS: LIVER: Unremarkable. There is normal echotexture. No focal hepatic lesion. No intrahepatic biliary ductal dilation. GALLBLADDER: Unremarkable. No shadowing gallstone. No gallbladder wall thickening is demonstrated. No pericholecystic fluid. Negative sonographic Murrieta''s sign. COMMON BILE DUCT: Unremarkable as visualized. The proximal common bile duct is within normal limits for the patient''s age. PANCREAS: Unremarkable as visualized. No focal abnormality is demonstrated in the pancreas. No pancreatic ductal dilatation. RIGHT KIDNEY: Well-defined simple anechoic cyst of the right kidney measures 1.4 cm with posterior acoustic enhancement. No required imaging follow-up needed given high likelihood of benign nature. There is no hydronephrosis. No shadowing calculus. US/Abdomen Limited IMPRESSION: No acute findings in the right upper quadrant. Electronically Signed: Inocencio Avelar MD ([place]) at 10:53 EST , Service support ,
== END ==
PROVIDERS: PCP Family Medicine; Referring Provider Family Medicine; Visit Provider Family Medicine
DX: R10.11 Right upper quadrant pain (principal)
CPT/HCPCS: 76705

== ENCOUNTER 2021-12-26 09:55 | Outpatient (CLI) | payer MEDICARE, OTHER, SELFPAY ==
--- NOTE | 2021-12-26 10:00 | NM_ITS ---
CLINICAL: 71-year-old female with reported history of right upper quadrant abdominal pain. RADIONUCLIDE HEPATOBILIARY SCINTIGRAPHY COMPARISON: Abdominal ultrasound report 10/31/2021 FINDINGS: Following the intravenous administration of 5.5 mCi of 99m Tc Mebrofenin, hepatobiliary images reveal: 1. Relatively prompt and homogeneous radiopharmaceutical concentration is noted by a normal sized liver. No parenchymal defects are identified. 2. Gallbladder activity is identified at 15 minutes post radiopharmaceutical administration. 3. Small intestinal tract is not clearly defined prior to fatty meal administration, bowel activity is observed following meal ingestion. 4. Washout of the radiopharmaceutical by the hepatic parenchyma appears qualitatively normal. The patient was administered a fatty meal (8 ounces BOOST-30 grams fat). The post fatty meal consumption gallbladder ejection fraction calculated at 30 minutes was noted to be 59.0 % (normal greater than 30%). NM/Hepatobilliary Img w/Pharm Int IMPRESSION: 1. NORMAL 99m Tc Mebrofenin hepatobiliary imaging examination with fatty meal ingestion. A. A gallbladder ejection fraction calculated to be greater than 30% following the administration of a consumed fatty meal makes the probability of functional hepatobiliary disease (gallbladder and/or sphincter of Oddi dyskinesia) and/or organic hepatobiliary disease (chronic acalculous cholecystitis and/or cystic duct syndrome) to be low. (Demetrio and Matthew, J Nucl Med 43: 1603, 2002). Electronically Signed: Arian Parker DO at 23:18 EST ,
== END 2021-12-26 23:59 | disposition home or self-care (01) ==
PROVIDERS: PCP Family Medicine; Referring Provider Family Medicine; Visit Provider Family Medicine
DX: R10.11 Right upper quadrant pain (principal)
CPT/HCPCS: 78227; A9537

== ENCOUNTER → 2022-02-28 | Outpatient (CLI) | payer MEDICARE, OTHER, SELFPAY ==
--- NOTE | 2022-02-28 10:21 | RAD_ITS ---
STUDY: X-RAY - LUMBAR SPINE REASON FOR EXAM: Female, 72 years old. Back pain BACK PAIN TECHNIQUE: XR Spine Lumbar Comp W/ Bending Min 6 Views COMPARISON: None FINDINGS: Normal lumbar lordosis. There is no substantial scoliosis. There is a Grade 1 retrolisthesis of L1 on L2 measuring 2.3 mm. There is a Grade 1 retrolisthesis of L2 on L3 measuring 3.7 mm. There is a Grade 1 retrolisthesis of L3 on L4 measuring 4 mm. There is no movement on the flexion or extension views. There is multilevel endplate spondylosis of the lumbar vertebrae. There is multi-level degenerative disc disease with multi-level disc space narrowing. There are atherosclerotic vascular calcifications. The soft tissue structures are unremarkable. Lumbar spinal fixation hardware noted. RAD/L/S Spine Bending Flex/Ext IMPRESSION: Degenerative changes of the spine, as detailed above. Electronically Signed: Marcell Roberts MD at 21:07 EDT ,
== END | disposition home or self-care (01) ==
PROVIDERS: PCP Family Medicine; Referring Provider Anesthesiology Pain Medicine; Visit Provider Anesthesiology Pain Medicine
DX: M96.1 Postlaminectomy syndrome, not elsewhere classified (principal)
CPT/HCPCS: 72120

== ENCOUNTER → 2022-07-17 | Outpatient (CLI) | payer MEDICARE, OTHER, SELFPAY ==
--- NOTE | 2022-07-17 14:15 | BI_ITS ---
MAMMOGRAPHY - BILATERAL SCREENING REASON FOR EXAM: Female, 72 years old. Routine annual screening examination. PERTINENT HISTORY: Non-contributory. History of prior bilateral excisional breast biopsies. TECHNIQUE: Digital bilateral breast melyssa (3D mammographic acquisition) in the CC and MLO projections. 2-D mediolateral oblique (MLO) and craniocaudad (CC) views of both breasts were obtained. CAD: Full Field Digital Mammography with Computer Added Detection was performed. COMPARISON: Comparison is made with prior examination 06/26/2021 and 06/13/2020. FINDINGS: Breast Composition: The breasts are almost entirely fatty. There are no dominant masses or suspicious calcifications. Stable small benign-appearing bilateral axillary No other significant abnormalities are identified. There has been no significant change since the prior study. BI/SCRN MAMM (CAD)W/MELYSSA BILAT IMPRESSION: Stable bilateral screening mammogram. Yearly follow-up mammogram recommended. (A) ASSESSMENT CATEGORY: BIRADS Category 2: Benign. A letter regarding these results will be sent to the patient by the facility within 30 days. Approximately 10% of breast cancers are not detected by mammography. A normal mammogram should not delay biopsy of a clinically suspicious abnormality. [id number] Electronically Signed: Matias Lion MD at 15:24 EDT ,
== END | disposition home or self-care (01) ==
LOC: OPBI 14:14
PROVIDERS: PCP Family Medicine; Referring Provider Family Medicine; Visit Provider Family Medicine
DX: Z12.31 Encounter for screening mammogram for malignant neoplasm of breast (principal)
CPT/HCPCS: 77063; 77067

== ENCOUNTER → 2022-08-06 | Outpatient (CLI) | payer MEDICARE, OTHER, SELFPAY ==
--- NOTE | 2022-08-06 12:34 | MRI_ITS ---
STUDY: MRI LUMBAR SPINE WITH AND WITHOUT CONTRAST REASON FOR EXAM: Female, 72 years old. Right leg sciatic pain x6-8 months. TECHNIQUE: Standardized fat and water weighted pulse sequences were obtained in the sagittal and axial planes. IV 14ml Clariscan was administered for the contrast portion of the examination. COMPARISON: MRI lumbar spine without contrast 03/02/2015. FINDINGS: T10-T11 and T11-T12: (Sagittal only). Normal endplates. Minimal disc space height narrowing. No ventral extradural defects. Normal central canal and bilateral intervertebral neural foramina. T12-L1: (Sagittal only). Normal endplates. Normal disc height, hydration and morphology. No ventral extradural defect. Normal central canal and bilateral intervertebral neural foramina. Normal lumbar lordosis. There is no substantial scoliosis. Normal conus medullaris that terminates at the upper L1 vertebral body level. L1-2: Schmorl''s node in the central L1 inferior endplate with reactive edema of the underlying vertebral marrow. This is a new finding. Normal L2 superior endplate. Mild disc space height narrowing. Mild ventral extradural defect due to small posterior bulging annulus and minimal degenerative retrolisthesis of L1 on L2. Normal central canal and bilateral lateral recesses. Normal bilateral intervertebral neural foramina. L2-3: Normal endplates. Moderate disc space height narrowing, previously mild. Minimal degenerative retrolisthesis of L2 on L3 is a new finding. Elbow decrease in size of small posterior bulging annulus. No significant facet arthropathy. Normal central canal and bilateral lateral recesses. Mild dorsal epidural lipomatosis. Normal bilateral intervertebral neural foramina. L3-4: Normal endplates. Mild disc space height narrowing. Mild ventral extradural defect due to small posterior bulging annulus. Moderate bilateral degenerative facet arthropathy, previously mild. Mild central canal stenosis with an AP canal diameter of 6 mm and a transverse canal diameter of 10.7 mm. Normal bilateral lateral recesses. Normal bilateral intervertebral neural foramina. L4-5: Normal endplates. Mild disc space height narrowing. Pedicular screws and rods causing signal distortion artifacts. Capacious central canal and bilateral lateral recesses. Postsurgical absence of the spinous processes and lamina. Normal bilateral intervertebral neural foramina. L5-S1: Interval resolution of minimal MODIC type I degenerative vertebral marrow edema underneath the L5 inferior endplate. Normal S1 superior endplate. Minimal disc space height narrowing. Normal central canal and bilateral lateral recesses. Normal bilateral intervertebral neural foramina. Normal visualized sacral ala. Normal visualized paraspinous soft tissue structures. Following IV contrast administration, there are no abnormal enhancing lesions intradurally and extradurally. Contrast enhancement of the reactive edema in the vertebral marrow underneath the L1 inferior endplate is a new finding. MRI/Spine Lumbar W/WO Contrast IMPRESSION: 1. Prominent central Schmorl''s node in the L1 inferior endplate with enhancing reactive edema of the underlying vertebral marrow. This is a new finding. 2. Minimal degenerative retrolisthesis of L2 on L3 is a new finding along with mild decrease in size of posterior bulging annulus. 3. Minimal degenerative retrolisthesis of L1 on L2 and small L1 of the posterior bulging annulus are new findings. 4. Mild central canal stenosis at L3-L4 disc space level with an AP canal diameter of 6 mm and a transverse canal diameter 10.7 mm. 5. Interval posterior fusion using pedicular screws and rods with decompression laminectomy at L5-S1 disc space level. 6. No MRI evidence of lumbar extruded disc fragment. 7. No other additional findings or changes since 03/02/2015. Electronically Signed: Anand David MD at 14:16 EDT ,
[2022-08-06 13:10] LABS: CREATININE FINGERSTICK < 0.9 mg/dL (0.55-1.02); EGFR FINGERSTICK > 60.0000 mL/min (>60)
== END | disposition home or self-care (01) ==
LOC: MRI 12:29
PROVIDERS: PCP Family Medicine; Referring Provider Anesthesiology Pain Medicine; Visit Provider Anesthesiology Pain Medicine
DX: M51.37 Other intervertebral disc degeneration, lumbosacral region (principal)
CPT/HCPCS: 72158; A9575

== ENCOUNTER → 2022-09-04 | Outpatient (CLI) | payer MEDICARE, OTHER, SELFPAY ==
[2022-09-04 18:10] LABS: Absolute Lymphocyte Count 1.99 X10^3/uL (0.83-4.51); Absolute Neutrophil Count 3.7 X10^3/uL (2.0-7.7); Basophil# 0.05 X10^3/uL; Basophil% 0.8 % (0-1); Eosinophils% 3.1 % (0-5); Hematocrit 41.9 % (37-47); Lymphocyte # 1.99 X10^3/ul (0.83-4.51); Lymphocyte % 30.6 % (19-41); Mean Corp Hgb Conc 33.4 g/dL (32-36); Mean Corpuscular Hgb 31.7 pg (27.0-32.0); Mean Platelet Vol. 9.3 fl (6.2-12.0); Monocyte# 0.51 X10^3/uL; Monocyte% 7.8 % (0-10); NRBC Flagged by Analyzer 0 % (0-5); Neutrophil # 3.73 X10^3/uL (2.7-7.7); Neutrophil % 57.4 % (47-70); Platelet Count 302 K/mm3 (150-450); RBC Distribution Width SD 45.2 fl (35.1-43.9); Red Blood Count 4.41 M/mm3 (4.2-5.4); White Blood Count 6.5 K/mm3 (4.4-11.0)
[2022-09-04 18:42] LABS: ALB/GLOB Ratio 1.1 RATIO (0.9-2.4); AST(SGOT) 15 U/L (15-37); Alanine Aminotransfer ALT/SGPT 24 U/L (13-56); Albumin, Serum 3.7 g/dL (3.2-5.0); Alkaline Phosphatase 59 U/L (45-117); Anion Gap 7 (5-15); BUN 22 mg/dL (7-18); BUN/Creat Ratio 33.7 RATIO (10-20); Calcium,Total 8.9 mg/dL (8.5-10.1); Chloride 104 mmol/L (98-107); Cholesterol 245 mg/dL (200); Creatinine, Serum 0.65 mg/dL (0.55-1.02); EST Glomerular Filtration Rate 95 mL/min (>60); Est Glom Filt Rate - Afr Amer 114 mL/min (>60); Globulin 3.4 g/dL (2.2-4.2); Glucose 104 mg/dL (74-106); High Density Lipoprotein 91 mg/dL; Protein, Total 7.1 g/dL (6.4-8.2); Sodium Level 139 mmol/L (136-145); Thyroid Stim Hormone (TSH) 2.82 uIU/mL (0.358-3.74); Triglycerides 106 mg/dL; Very Low Density Lipoprotein 21 mg/dL (5-40)
== END | disposition home or self-care (01) ==
LOC: BFHLAB 14:20
PROVIDERS: PCP Family Medicine; Visit Provider Family Medicine
DX: I10 Essential (primary) hypertension (principal); E78.5 Hyperlipidemia, unspecified; E55.9 Vitamin D deficiency, unspecified; E04.2 Nontoxic multinodular goiter
CPT/HCPCS: 36415; 80053; 80061; 82306; 84443; 85025

== ENCOUNTER → 2022-10-16 | Outpatient (CLI) | payer MEDICARE, OTHER, SELFPAY ==
[2022-10-16 18:31] LABS: Erythrocyte Sedimentation Rate 7 mm/hr (0-30)
[2022-10-16 18:32] LABS: CPK Total, Creatine Kinase 58 U/L (26-192); CRP < 2.90 mg/L (0.0-3.0)
[2022-10-20 19:00] LABS: ANTINUCLEAR ANTIBODIES DIRECT Negative (Negative)
== END | disposition home or self-care (01) ==
LOC: BFHLAB 16:26
PROVIDERS: PCP Family Medicine; Visit Provider Family Medicine
DX: M79.10 Myalgia, unspecified site (principal); R53.1 Weakness
CPT/HCPCS: 36415; 82550; 85652; 86038; 86140; 86225; 86235

== ENCOUNTER → 2022-11-19 | Outpatient (CLI) | payer MEDICARE, OTHER, SELFPAY ==
--- NOTE | 2022-11-19 14:17 | RAD_ITS ---
EXAM: XR THORACIC SPINE, 3 VIEWS CLINICAL INDICATION: FALL/BACK PAIN TECHNIQUE: Frontal, lateral and swimmer''s views of the thoracic spine. This report was created using [employer] report generation technology. COMPARISON: None. FINDINGS: VERTEBRAE: Unremarkable. Preserved vertebral body height. No fracture. No spondylolisthesis. Preservation of the normal thoracic kyphosis. No significant facet arthropathy. DISC SPACES: There are degenerative changes with disc space narrowing and osteophyte formation. RAD/Thoracic Spine 3 Views IMPRESSION: No acute osseous abnormalities. There are degenerative changes with disc space narrowing and osteophyte formation. Electronically Signed: Frantz Carbone MD at 16:35 EST ,
--- NOTE | 2022-11-19 14:17 | RAD_ITS ---
EXAM: XR LUMBOSACRAL SPINE, 4 OR 5 VIEWS CLINICAL INDICATION: FALL/BACK PAIN TECHNIQUE: Frontal, lateral and bilateral oblique views of the lumbar spine. This report was created using [employer] report [employer] technology. COMPARISON: None. FINDINGS: VERTEBRAE: There are screws from a bilateral fusion of L4 and L5. There is a bilateral laminectomy at L4-5. DISC SPACES: There is disc space narrowing at L1-2, L2-3 and L4-5. Minimal posterior spondylolisthesis of L3 on L4 of 2 mm. GASTROINTESTINAL TRACT: Unremarkable as visualized. Included bowel gas pattern is non-obstructive. RAD/L/S Spine Min 4 Views IMPRESSION: 1. No acute osseous abnormalities. 2. Postsurgical changes in the lower lumbar spine with pedicle screws in good position. There are degenerative changes with disc space narrowing. Electronically Signed: Frantz Carbone MD at 16:31 EST ,
== END | disposition home or self-care (01) ==
PROVIDERS: PCP Family Medicine; Referring Provider Nurse Practitioner Family; Visit Provider Nurse Practitioner Family
DX: M54.6 Pain in thoracic spine (principal)
CPT/HCPCS: 72072; 72110

== ENCOUNTER → 2023-01-09 | Outpatient (CLI) | payer MEDICARE, OTHER, SELFPAY ==
--- NOTE | 2023-01-09 08:12 | RAD_ITS ---
STUDY: X-RAY - ESOPHAGUS (BARIUM SWALLOW) WITH FLUOROSCOPY REASON FOR EXAM: Female, 72 years old. DYSPHAGIA TECHNIQUE: 16 view(s) of the esophagus were obtained following swallowing of barium. FLUOROSCOPY TIME (if supplied): (42 seconds) minutes/seconds. 10.2 mGy COMPARISON: None. FINDINGS: There is no demonstrated esophageal foreign body. There is no demonstrated stricture or mucosal abnormality. Normal gastroesophageal junction, without a demonstrated hiatal hernia. The patient ingested a 12 mm tablet of barium without any difficulty. There is atherosclerotic calcification of the aortic arch with tortuosity of the descending aorta. Normal visualized pulmonary parenchyma. There are diffuse degenerative changes of the visualized thoracic spine. RAD/Esophagus Dual Contrast IMPRESSION: Normal plain film x-ray examination (barium swallow) of the esophagus. Electronically Signed: Matias Lion MD at 13:55 EST ,
== END | disposition home or self-care (01) ==
LOC: RAD 07:53
PROVIDERS: PCP Family Medicine; Referring Provider Otolaryngology; Visit Provider Otolaryngology
DX: R13.10 Dysphagia, unspecified (principal)
CPT/HCPCS: 74221

== ENCOUNTER → 2023-01-19 | Outpatient (CLI) | payer MEDICARE, OTHER, SELFPAY ==
--- NOTE | 2023-01-19 12:07 | US_ITS ---
STUDY: THYROID ULTRASOUND REASON FOR EXAM: Female, 72 years old. Thyroid ultrasound. TECHNIQUE: Ultrasound evaluation of the thyroid was performed with real-time and static mcrae-scale imaging. COMPARISON: September 20, 2021, October 03, 2019 and October 20, 2018.. FINDINGS: RIGHT LOBE: The right lobe of the thyroid gland measures 3.8 x 2.5 x 1.8 cm. There is a homogeneous echotexture. In the mid thyroid there is a 3.3 x 2.2 x 1.8 cm predominantly solid isoechoic nodule containing internal cystic foci. Normal vascularity on Doppler imaging. LEFT LOBE: The left lobe of the thyroid gland measures 3.2 x 1.5 x 0.8 cm. There is a homogeneous echotexture. There are no demonstrated solid, cystic or complex lesions. ISTHMUS: The isthmus measures 0.1 cm. The regional lymph nodes are normal. US/Thyroid IMPRESSION: Large predominantly solid mass in the right thyroid. This appears unchanged in size from the initial ultrasound with increased cystic changes centrally when compared to the 2018 study. While a long-term stability suggests a benign etiology, this mass is categorized as TR 3, mildly suspicious by I-RADS categorization with the recommendation for FNA. Electronically Signed: Shayne Herzog DO at 17:06 EDT ,
== END | disposition home or self-care (01) ==
LOC: US 12:06
PROVIDERS: PCP Family Medicine; Visit Provider Otolaryngology
DX: R13.10 Dysphagia, unspecified (principal); E04.1 Nontoxic single thyroid nodule
CPT/HCPCS: 76536

== ENCOUNTER → 2023-02-19 | Outpatient (CLI) | payer MEDICARE, OTHER, SELFPAY ==
--- NOTE | 2023-02-19 | ASPS_PTH ---
PATIENT: ROSALVA RODRIGUEZ LOC: [facility] U#:[id number] AGE/SX: 73/F ROOM: RE02/19/[address]: Dr. Andrew Fontaine MD : 1950 BED: DIS: 02/19/2023 SPEC #: [id number] RECD: 02/19/23 14:43 STATUS: ELIESER REJenna #: [id number] LENCHO: 02/19/23 00:[address]: Andrew Fontaine DEPT: CYTOLOGY RECD BY: Gus Box ENTERED: 02/20/23 08:45 SP TYPE: ASPIRATION OTHR DR: Dr. Chalino Mae, DO Tissues: Thyroid gland, NOS Procedures: Special Stain Group II Cytology Other HEADER OPERATION: Right thyroid fine needle aspiration PRE-OP DIAGNOSIS: Right thyroid nodule TISSUE SUBMITTED: Right thyroid nodule x14 slides DIAGNOSIS CYTOLOGY Fine needle aspiration, right thyroid nodule (smears): Atypia of undetermined significance (Hudson Category III). See comment. AM:nelsy 02/20/2023 COMMENT The Hudson System for thyroid diagnostic categorization was used in the evaluation of this case. Multi-gene next-generation sequencing panel (Afirma) is recommended for this lesion. This recommendation was communicated to the physician's office. The specimen is adequate for evaluation. CYTOLOGY STUDY Slides are reviewed. CYTOLOGY GROSS Received are 14 smears labeled with the patient's name and designated per the requisition as right thyroid nodule. Submitted for staining. / nelsy 02/19/2023 TC:? CPT: 58729
== END | disposition home or self-care (01) ==
PROVIDERS: PCP Family Medicine; Referring Provider Surgery; Visit Provider Surgery
DX: E04.1 Nontoxic single thyroid nodule (principal)
CPT/HCPCS: 88161; 88313

== ENCOUNTER 2023-04-13 05:56 | Day surgery (SDC) | payer MEDICARE, OTHER, SELFPAY ==
--- NOTE | 2023-04-07 09:58 | EKG12_ITS ---
Test Reason : PRE-OP Blood Pressure : / mmHG Vent. Rate : 069 BPM Atrial Rate : 069 BPM P-R Int : 126 ms QRS Dur : 082 ms QT Int : 402 ms P-R-T Axes : 026 023 033 degrees QTc Int : 430 ms Normal sinus rhythm Nonspecific T wave abnormality Abnormal ECG Confirmed by NIR GARCIA, PATO ([id number]), editorial director FRANSICO YEN ([id number]) on 04/08/2023 9:42:17 AM Referred By: Andrew Fontaine Confirmed By:PATO LOYOLA MD
[2023-04-07 10:36] LABS: Hematocrit 41.6 % (37-47); Hemoglobin 13.5 g/dL (12.0-15.0); Mean Corp Hgb Conc 32.5 g/dL (32-36); Mean Corpuscular Hgb 31.2 pg (27.0-32.0); Mean Corpuscular Volume 96.1 fL (81-99); Mean Platelet Vol. 8.7 fl (6.2-12.0); Platelet Count 278 K/mm3 (150-450); RBC Distribution Width CV 12.5 % (11.6-14.6); Red Blood Count 4.33 M/mm3 (4.2-5.4)
[2023-04-07 11:06] LABS: Anion Gap 5 (5-15); BUN 16 mg/dL (7-18); BUN/Creat Ratio 30.9 RATIO (10-20); Calcium,Total 8.7 mg/dL (8.5-10.1); Chloride 107 mmol/L (98-107); Creatinine, Serum 0.52 mg/dL (0.55-1.02); EST Glomerular Filtration Rate 123 mL/min (>60); Est Glom Filt Rate - Afr Amer 149 mL/min (>60); Glucose 97 mg/dL (74-106); Phosphorus 3.4 mg/dL (2.5-4.9); Potassium 4.3 mmol/L (3.5-5.1); Sodium Level 140 mmol/L (136-145)
[2023-04-13] VITALS (32 sets, daily range): BP systolic 90–164; BP diastolic 53–96; PULSE 71–95; RESP 14–18; TEMP 36.4–37.2; O2SAT 2–99; BMI 27.5
[2023-04-13] MEDS: Lactated Ringers 1,000 ML 15 ML IV ×3 (06:41→14:08)
--- NOTE | 2023-04-13 07:02 | PCM.HP.BLA ---
History and Physical Date of Admission: 04/13/23 Allergies ciprofloxacin [From Cipro] Allergy (Verified 03/18/23 13:03) Unknown Medications amlodipine 5 mg tablet 5 mg PO DAILY 02/05/16 [History Confirmed 02/19/23] citalopram 20 mg tablet 40 mg PO DAILY 10/17/20 [History Confirmed 02/19/23] alosetron 0.5 mg tablet 0.5 mg PO 03/18/23 [History Confirmed 03/18/23] Assessment and Plan Assessment and Plan (1) Thyroid nodule: ?Status:?Acute ?Comment: Patient does note that she has nausea and vomiting with anesthesia. 03/18/23 1506 <Electronically signed by Noemí LESLIE PA-C> Date Noemí Hodges PA-C cc: ? ~* Signed Intake Vital Signs ? 03/18/2313:02 Height 5 ft Weight: 140 lb BMI 27.3 BP 136/82 H Blood Pressure Location Rt brachial Position Sitting Respiration 18 Intake Visit Reasons:?Update H/P Surgery 04/13 Chief Complaint: update H&P Ribbon Cleaner Required: No Is patient in pain?: No Allergies ciprofloxacin [From Cipro] Allergy (Verified 03/18/23 13:03) Unknown Medications amlodipine 5 mg tablet 5 mg PO DAILY 02/05/16 [History Confirmed 02/19/23] citalopram 20 mg tablet 40 mg PO DAILY 10/17/20 [History Confirmed 02/19/23] alosetron 0.5 mg tablet 0.5 mg PO 03/18/23 [History Confirmed 03/18/23] PFSH Medical History? Anxiety Back pain Diaphragmatic hernia without mention of obstruction or gangrene Diarrhea Difficulty balancing Diffuse cystic mastopathy Esophagitis Gastric ulcer Heartburn Hematuria Hemorrhoids History of IBS Hyperlipidemia Hypertension Hypocalcemia Hypotension IBS (irritable bowel syndrome) Mitral valve prolapse Noninflammatory disorder of vagina Osteoarthrosis Peptic ulcer right ring finger surgery Shoulder pain Sleep disturbance Thyroid nodule Vitamin D deficiency Surgical History? H/O breast biopsy H/O colonoscopy History of esophagogastroduodenoscopy (EGD) History of tonsillectomy Previous back surgery S/P adenoidectomy S/P foot surgery S/P thyroid biopsy Family History? Grandmother Colon cancerFather Cancer CVA (cerebral vascular accident) Parkinson diseaseMother Hypertension Alzheimer disease Social History? Smoking Status:? Former smoker alcohol intake:? current alcohol intake frequency: 0-2 drinks per day substance use type:? does not use what type of physical activity do you participate in:? none seatbelt use:? always do you feel safe at home:? Yes additional social history:? [place] [place] Works department head college or university at [employer] HPI HPI Surgical H&P: Yes HPI: Patient is a 73 y/o F I am following for an update history and physical for a right thyroid lobectomy possible total thyroidectomy. Patient denies any recent hospitalizations or illnesses. Patient denies any cardiac history, cardiac stents, previous myocardial infarction, pacemaker/defibrillator, previous strokes. She denies any previous blood clots. She denies any pulmonary concerns. She is not on any blood thinners. Patient's previous history per Dr. Fontaine: 73-year-old female is referred referred by Dr. Donnie Alvarez for surgical consultation regarding right thyroid nodule TI-RADS 3.? Written compromise surgical consult and recommendations will return to him.? The patient is having trouble with dysphagia.? On January 09, 2023 at the [facility] she had a barium swallow.? This appeared to be normal.? There is no hang up of the barium tablet.? Although not reported the aortic arch causes some mild external compression.? I do not see any deviation in the esophagus based upon the thyroid.? Subsequently on January 19, 2023 the patient had thyroid ultrasound.? The right thyroid lobe measures 3.8 cm and there is a 3.3 x 2.2 x 1.8 cm predominantly solid isoechoic nodule with internal cystic foci.? The left lobe measures 3.2 x 1.5 x 0.8 cm.? I have personally reviewed these images and it is pertinent that radiology compared the current images to thyroid ultrasound of September 20, 2021 and October 03, 2019 and October 20, 2018.? There is felt to be increased cystic changes since 2018.? It is of note that Dr. Lambert Hanley performed an ultrasound-guided fine needle aspiration of the right thyroid nodule April 28, 2018.? Cytology suggest a few benign follicular cells.? Specimen limited in evaluation due to lack of adequate number of follicular cells.? As of September 04, 2022 patient's TSH level was 2.82. The patient has had known thyroid enlargement as noted above at least dating back for 5 years to 2018.? Her difficulties with esophageal dysphagia have only been for the past 5 weeks as she points to her neck as a feeling of compression.? But is noted the barium swallow does not demonstrate any thyroid compression on the esophagus.? There is no hoarseness. The patient states that Dr. Hanley did not perform the fine-needle aspiration himself but that was performed in radiology.? She does have a chronic anxiety issue and she states that that procedure was very uncomfortable January 27, 2023 STUDY: ? THYROID ULTRASOUND REASON FOR EXAM: ? Female, 72 years old. Thyroid ultrasound. TECHNIQUE: ? Ultrasound evaluation of the thyroid was performed with real-time and static mcrae-scale imaging. COMPARISON: ? September 20, 2021, October 03, 2019 and October 20, 2018.. FINDINGS: RIGHT LOBE:? The right lobe of the thyroid gland measures 3.8 x 2.5 x 1.8 cm.? There is a homogeneous echotexture. In the mid thyroid there is a 3.3 x 2.2 x 1.8 cm predominantly solid isoechoic nodule containing internal cystic foci.? Normal vascularity on Doppler imaging. LEFT LOBE:? The left lobe of the thyroid gland measures 3.2 x 1.5 x 0.8 cm. There is a homogeneous echotexture.? There are no demonstrated solid, cystic or complex lesions. ISTHMUS:? The isthmus measures 0.1 cm. The regional lymph nodes are normal. US/Thyroid IMPRESSION: Large predominantly solid mass in the right thyroid. This appears unchanged in size from the initial ultrasound with increased cystic changes centrally when compared to the 2018 study. While a long-term stability suggests a benign etiology, this mass is categorized as TR 3, mildly suspicious by I-RADS categorization with the recommendation for FNA. ? Electronically Signed: Shayne Herzog at 17:06 EDT Reading Location ID and State: [address] [place] [address] Tel [phone], Service support? , 73-year-old female returns to discuss results of fine-needle aspiration of the thyroid.? The patient had presented to her primary physician and then an ear nose and throat complaining of a globus sensation.? On February 27, 2023 I performed ultrasound-guided fine needle aspiration of the right thyroid.? Atypia of undetermined significance Andrews category 3 identified.? Although the report stated that Afirma testing has already been submitted that is not the case and it has not been submitted. ROS General General: No weight change, appetite, fatigue, colon cancer, breast cancer or weakness HEENT HEENT: No difficulty swallowing, eye injury, eye surgery, swollen glands or hoarseness Endo Endocrine: No thyroid disease, diabetes mellitus, thyroid cancer, Hair loss, heat intolerance or cold intolerance Skin Skin: No rash or changing moles Breast Breast: No left breast lump, right breast lump, nipple discharge, breast pain, abnormal mammogram, abnormal US or breast enlargement Musc Musculoskeletal: No back problems, arthritis, rheumatoid arthritis, gout or joint pain Cardio Cardiovascular: No murmur, pacemaker, heart disease, atrial fibrillation, high blood pressure, heart attack, heart stent, palpitations, shortness of breat with exertion or chest pain Psych Psychiatric: No depression, anxiety or hearing voices Resp Respiratory: No shortness of breath, No sleep apnea, No cough, No COPD, No asthma, No emphysema and No wheezing Gastro Gastrointestinal: No abdominal pain, No nausea or vomiting, No diarrhea, No constipation, No blood in stool, No acid reflux, No hemorrhoids, No ulcers, No gallbladder problem and No black,tarry stools Ignacio Hematologic: No blood thinners, No blood disorders, No bleeding, No anemia and No blood clots Neuro Neurologic: No system reviewed and no additional complaints, except as documented, No as per HPI, No abnormal gait, No abnormal hearing, No abnormal movements, No abnormal speech, No behavioral changes, No burning sensations, No confusion, No convulsions, No disequilibrium, No dizziness, No localized weakness, No frequent falls, No headache(s), No lack of coordination, No loss of vision, No memory loss, No numbness, No other visual disturbances, No radicular pain, No restless legs, No sensory deficit, No syncope, No tingling, No tremor(s), No weakness and No other Exam Const General: cooperative, healthy appearing, comfortable and no acute distress [facility] Head: normal to inspection Eyes General: appearance normal, both eyes and all related structures Neck Neck: normal visual inspection Neck mass: No Resp Effort & Inspection: normal respiratory effort Auscultation: clear to auscultation bilaterally Cardio Rate: regular rate Rhythm: regular rhythm GI Inspection: normal to inspection Palpation: soft Auscultation: normal bowel sounds Musc Cervical Spine: normal cervical lordosis Skin General: no rashes or lesions noted Neuro General: no focal motor deficits Extrem General: normal to inspection Psych Appearance: grossly normal Affect: normal affect Assessment and Plan Assessment and Plan (1) Thyroid nodule: ?Status:?Acute ?Plan: Dr. Fontaine will plan to perform a right thyroid lobectomy possible conversion to a total thyroidectomy. Procedure details, risks and benefits have been reviewed. Patient has had the opportunity to ask and have questions answered. Patient verbally understands and agrees with the plan. Patient is not on any blood thinners I have examined the patient and the H&P has been reviewed. There are no clinical changes since date of exam. Andrew Fontaine M.D., F.A.C.S.
--- NOTE | 2023-04-13 07:03 | DCINST_ITS ---
Discharge Instructions Procedure General Surgery Diet Discharge Diet: Light diet - advance as tolerated (if you have questions about your diet instructions, please talk to you doctor.) Activity Discharge Activity: May Not Drive (for 3-5 days or while taking narcotic pain medicine.) May shower in (days): 1 Lifting Restrictions: 10 pounds Dressing / Incision Call your doctor if your incision/area has: Continuous Slow Oozing, Sudden Increased Bleeding, Increased Pain/ Swelling, Increased Redness and Foul Smelling Discharge Call your doctor if you observe: Fever of 101 or Higher Suture Line Care: Avoid Pulling/Pushing and Avoid Pinching/Bending Additional Dressing/Incision Instructions:: Change or remove dressing in 4 days. Leave steri-strips in place for 1 week. Follow Up Care Please Follow Up With: Andrew Fontaine MD When: Call [phone] to make an appointment to be seen in about 10 days. Test Results: Test results from this visit will be discussed in further detail at your follow- up appointment, if applicable. Discharge Plan Admission Attending Provider: Andrew Fontaine Primary Care Provider: Chalino Mae Discharge Orders/Prescriptions Prescriptions: No Action citalopram 20 mg tablet 20 mg PO QHS alosetron 0.5 mg tablet 0.5 mg PO DAILY Label Comments: take 1 tablet by mouth once daily amlodipine 5 MG tablet 5 mg PO DAILY albuterol sulfate 90 mcg/actuation HFA aerosol inhaler 2 puff INHALATION PRN PRN (Reason: ASTHMA) Label Comments: (ANY BRAND) 2 PUFFS EVERY 4 HOURS NEEDED FOR WHEEZING Referrals / Follow Up: Chalino Mae DO [Primary Care Provider] - Disposition Disposition (needs filled in before D/C Order can be placed): Home, Self Care
--- NOTE | 2023-04-13 07:30 | THYROID_PTH ---
PATIENT: ROSALVA RODRIGUEZ LOC: [facility] U#:[id number] AGE/SX: 73/F ROOM: RE04/13/[address]: Dr. Andrew Fontaine MD : 1950 BED: DIS: 04/13/2023 SPEC #: [id number] RECD: 04/13/23 10:56 STATUS: ELIESER CASEY #: [id number] LENCHO: 04/13/23 07:[address]: Andrew Fontaine DEPT: SURGICAL PATHOLOGY RECD BY: Giulia Banegas ENTERED: 04/13/23 12:03 SP TYPE: THYROID OTHR DR: Dr. Chalino Mae, DO Tissues: Thyroid gland, NOS Procedures: Surgery Specimen Level V HEADER OPERATION: Thyroid lobectomy PRE-OP DIAGNOSIS: Thyroid nodule TISSUE SUBMITTED: Right lobe of thyroid, suture vick anterior superior right lobe MICROSCOPIC DIAGNOSIS Right thyroid lobe, lobectomy: A dominant colloid/follicular nodule with cystic changes (4 cm in greatest dimension). See comment. SJ:nelsy 04/15/2023 COMMENT Focal mild atypia noted, favor reactive. A small piece of unremarkable parathyroid tissue is noted (intrathyroidal in location). Please make reference to previous specimen ([id number]) fine needle aspiration, right thyroid nodule with diagnosis of ?atypia of undetermined significance.? MICROSCOPIC DESCRIPTION Slides are reviewed. GROSS DESCRIPTION Received in fixative is one container labeled with the patient's name and designated right lobe of thyroid, suture vick anterior superior right lobe. The specimen consists of a thyroid lobectomy specimen measuring 4.0 x 2.5 x 1.7 cm and weighing 8 gm. The specimen is oriented by a suture at anterior superior margin. The specimen is inked as follows: anterior margin - blue, posterior margin - black, ischemic resection margin - yellow. Serial sections reveal a single nodule occupying almost the entire lobe measuring 4.0 x 2.0 x 1.5 cm. Sections of this lobe reveal focal cystic cut surfaces. The entire specimen is submitted in six cassettes. Cassette 1 contains the most superior portion and cassette 6 contains the most inferior portion. / JACKLYN:nelsy 04/14/2023 TC:5 CPT: 51582
[2023-04-13] MEDS: Bupivacaine Mpf 0.5% 30 ML VIAL (08:41)
--- NOTE | 2023-04-13 08:43 | PCM.OPRPT ---
Report of Operation Date of Procedure: 04/13/23 Pre-Operative Diagnosis: Scarbro 3 right thyroid nodule Post-Operative Diagnosis: Same Surgery/Procedure Performed:: Right thyroid lobectomy Description of Surgical Findings:: Timeout informed consent was obtained. 73-year-old female was taken to the operating placed on the table underwent general endotracheal intubation esthesia. The neck was gently extended shoulder roll of gel pad placed. A suprasternal transverse incision was created electrocautery dissection performed down through the subtenons tissue platysmal flaps were raised strap muscles incised vertically where needed strap muscles were partially transected on the right the nodule involving the majority of the right lobe of the thyroid in particular the inferior portion of the thyroid was identified and this actually was several centimeters retroclavicular and retrosternal I addressed the superior pole first and using blunt dissection on harmonic scalpel dissection superior pole vessels were secured and then took the middle thyroidal vein this allowed me to elevate the thyroid gland superiorly and anteriorly and I could do the dissection of the inferior lobe. The course of the recurrent ventral nerve identified and protected superior parathyroid was nice and then defined and carefully dissected free the majority of the dissection actually is quite straightforward the right lobe felt somewhat rubbery there was no firmness or hardness no evidence of invasion there was some adherence strap muscles at the suspected site of fine-needle and but that was dissected free readily the gland was then rotated anteriorly most difficult part of this dissection was the ligament of Trimble which was carefully bluntly dissected and then harmonic scalpel dissected and a single Hemoclip was used. The gland was rotated off the anterior surface of the trachea and then the isthmus was very diminutive and readily transected. A suture was placed in the anterior superior aspect of the right lobe. Palpation suggested that the left lobe was quite diminutive. I could not detect any adenopathy bilaterally. There is no gross evidence of residual disease on the right. The right neck was irrigated. A piece of fibrillar was placed. Strap muscles were approximated vertically with interrupted 3-0 Vicryl. The platysma was approximated with the same. Skin edges approximated up to 5-0 Vicryl subdermal stitches. The mateo-incisional areas anesthetized with 15 cc of 0.5% Marcaine. Surgical glue was applied followed by Telfa and tape dressing. Sponge and instrument and needle counts were reported the surgeon to be correct. Specimen right lobe of thyroid. Drains none. Blood loss minimal. The patient was taken the recovery room in satisfactory addition without apparent complication Andrew Fontaine M.D., F.A.C.S. Surgeon: Andrew Fontaine Type of Anesthesia: General and Local Anesthesiologist: Jayesh Granado
[2023-04-13] MEDS: Ipratropium/Albuterol Sulfate 3 ML AMPUL.NEB INHALATION (10:49)
--- NOTE | 2023-04-13 11:04 | SUR.PHASEI ---
DESATS WHEN RESTING/SLEEPING. DOES USE ALBUTEROL INHALER AT HOME. CRACKLES RIGHT LOWER LOBE ON AUSCULTATION. DR KAPOOR NOTIFIED, ORDERED DUONEB AEROSOL TX. WILL UPDATE .
--- NOTE | 2023-04-13 11:25 | RAD_ITS ---
STUDY: X-RAY CHEST REASON FOR EXAM: Female, 73 years old. LOW SPO2 TECHNIQUE: Single AP portable view of the chest. COMPARISON: Comparison is made with prior study dated January 11, 2016. FINDINGS: EKG electrodes are seen. The lungs are clear and expanded. There is no demonstrated pleural abnormality. Normal size heart. Normal mediastinum and halima. Normal visualized pulmonary arteries. There is atherosclerotic calcification of the aortic arch with tortuosity. There are diffuse degenerative changes of the visualized thoracic spine. There is degenerative osteoarthritis of the bilateral shoulders. There is no demonstrated abnormality of the visualized soft tissue structures of the upper abdomen. RAD/Chest 1 View (Portable) IMPRESSION: No acute abnormality is seen. Electronically Signed: Matias Lion MD at 11:52 EDT ,
--- NOTE | 2023-04-13 13:25 | SUR.PHASEI ---
THIS NURSE SAT PATIENT ON THE EDGE OF THE BED AND STOOD HER WITHOUT HIS O2 AND SHE DROPPED TO 80-85% ON RA.
--- NOTE | 2023-04-13 14:04 | SUR.PHASEI ---
DR. KAPOOR AT THE BEDSIDE AND GAVE PATIENT VERSED REVERSAL AGENT FLUMAZENIL 0.5 MG X1.
--- NOTE | 2023-04-13 14:14 | SUR.PHASEI ---
DR. KAPOOR GAVE ANOTHER DOSE OF FLUMAZENIL 0.5 MG IV.
[2023-04-13 14:32] LABS: Bedside Glucose 146 mg/dL (74-106)
--- NOTE | 2023-04-13 14:34 | SUR.PHASEI ---
CBC / TSH LABS SENT TO THE LAB FOR STAT RESULTS PER DR. KAPOOR ORDER.
[2023-04-13 14:39] LABS: Absolute Lymphocyte Count 0.45 X10^3/uL (0.83-4.51); Absolute Neutrophil Count 9.1 X10^3/uL (2.0-7.7); Basophil# 0.03 X10^3/uL; Basophil% 0.3 % (0-1); Hematocrit 38.8 % (37-47); Hemoglobin 12.7 g/dL (12.0-15.0); Lymphocyte # 0.45 X10^3/ul (0.83-4.51); Lymphocyte % 4.7 % (19-41); Mean Corp Hgb Conc 32.7 g/dL (32-36); Mean Corpuscular Hgb 31.8 pg (27.0-32.0); Mean Corpuscular Volume 97.2 fL (81-99); Mean Platelet Vol. 9.1 fl (6.2-12.0); Monocyte# 0.07 X10^3/uL; Monocyte% 0.7 % (0-10); NRBC Flagged by Analyzer 0 % (0-5); Neutrophil # 9.09 X10^3/uL (2.7-7.7); POSITIVE DIFFERENTIAL YES; Platelet Count 258 K/mm3 (150-450); RBC Distribution Width CV 12.6 % (11.6-14.6); RBC Distribution Width SD 45.3 fl (35.1-43.9); Red Blood Count 3.99 M/mm3 (4.2-5.4); White Blood Count 9.7 K/mm3 (4.4-11.0)
[2023-04-13 14:40] LABS: Differential Indicated SCAN CRITERIA MET
[2023-04-13] MEDS: Acetaminophen 325 MG Tablet 650 MG PO (14:59)
[2023-04-13 15:01] LABS: Thyroid Stim Hormone (TSH) 1.43 uIU/mL (0.358-3.74)
[2023-04-13 15:18] LABS: Differential Comment SCANNED
[2023-04-13] MEDS: Furosemide 40 MG/4 ML Vial IV (15:36)
== END 2023-04-13 16:42 | disposition home or self-care (01) ==
LOC: SDC 05:57 → AC 05:58
PROVIDERS: Anesthesiology; PCP Family Medicine; Referring Provider Surgery; Visit Provider Surgery
PROC: (CPT 60220; principal; 2023-04-13 07:15)
DX: E04.1 Nontoxic single thyroid nodule (principal); R13.10 Dysphagia, unspecified; I10 Essential (primary) hypertension; E78.5 Hyperlipidemia, unspecified; Z87.891 Personal history of nicotine dependence
CPT/HCPCS: 60220; 00320; 36415; 71045; 80048; 82962; 84100; 84443; 85025; 85027; 88307; 93005; 94640; A4648; J7120; J1940; J2405

== ENCOUNTER → 2023-04-28 | Outpatient (CLI) | payer MEDICARE, OTHER, SELFPAY ==
[2023-05-06 12:08] LABS: 5-HIAA, 24UR 2.7 mg/24 hr (0.0-14.9); 5-HIAA, UR 1.8 mg/L (Undefined); Metanephrine, Ur 43 ug/L (Undefined); Metanephrines, 24Ur 65 ug/24 hr (36-209); Normetanephrines, 24Ur 219 ug/24 hr (131-612); Normetanephrines, Ur 146 ug/L (Undefined)
== END | disposition home or self-care (01) ==
LOC: LABSPEC 08:30
PROVIDERS: PCP Family Medicine; Referring Provider Family Medicine; Visit Provider Family Medicine
DX: R23.2 Flushing (principal); R00.2 Palpitations; R19.7 Diarrhea, unspecified
CPT/HCPCS: 81050; 83497; 83835

== ENCOUNTER → 2023-04-30 | Outpatient (CLI) | payer MEDICARE, OTHER, SELFPAY ==
[2023-05-05 05:07] LABS: Dopamine, 24Ur 200 ug/24 hr (0-510); Dopamine, UR 111 ug/L (Undefined); Epinephrine, 24Ur 4 ug/24 hr (0-20); Epinephrine, Ur 2 ug/L (Undefined); Norepinephrine, 24Ur 50 ug/24 hr (0-135); Norepinephrine, Ur 28 ug/L (Undefined)
== END | disposition home or self-care (01) ==
LOC: LAB 10:43 → LABSPEC 10:45
PROVIDERS: PCP Family Medicine; Referring Provider Family Medicine; Visit Provider Family Medicine
DX: R23.2 Flushing (principal); R00.2 Palpitations; R19.7 Diarrhea, unspecified
CPT/HCPCS: 81050; 82384

== ENCOUNTER → 2023-05-06 | Outpatient (CLI) | payer MEDICARE, OTHER, SELFPAY ==
--- NOTE | 2023-05-06 13:31 | CT_ITS ---
INDICATION: Intermittent left sided headache x6 weeks. EXAMINATION: CT BRAIN WITH AND WITHOUT CONTRAST - CT Head or Brain WO/W Contrast Injection TECHNIQUE: Multiple axial images were obtained of the brain with and without IV contrast. A radiation dose optimization technique was used for this scan. IV Contrast dosage and agent: RADIATION DOSAGE (If Supplied By Facility): CTDIvol = ( 44.99 ) mGy, DLP = ( 1614.72 ) mGycm COMPARISON: None. FINDINGS: BRAIN: No acute bleed. No edema. Mild decreased attenuation in the periventricular white matter bilaterally. Delaney-white matter differentiation is maintained. No areas of abnormal contrast enhancement or enhancing mass lesion. VENTRICLES AND SULCI: Not dilated. EXTRA-AXIAL: No hemorrhage, fluid collection, or mass. CALVARIUM / SKULL BASE: Unremarkable. FACE/SINUSES: Mucosal thickening in the frontal sinuses, minimal in the sphenoid sinuses. SOFT TISSUES: Unremarkable. CT/Brain/Head W/WO Contrast IMPRESSION: No acute intracranial abnormality without and with IV contrast. Mild frontal sinus disease. Chronic microvascular ischemic disease. Electronically Signed: Irina Salazar MD at 17:24 EDT ,
== END | disposition home or self-care (01) ==
LOC: CT 13:26
PROVIDERS: PCP Family Medicine; Referring Provider Ophthalmology; Visit Provider Ophthalmology
DX: R51.9 Headache, unspecified (principal)
CPT/HCPCS: 70470; Q9967

== ENCOUNTER → 2023-05-13 | Outpatient (CLI) | payer MEDICARE, OTHER, SELFPAY ==
[2023-05-13 13:51] LABS: CRP < 2.90 mg/L (0.0-3.0)
== END | disposition home or self-care (01) ==
LOC: MTLAB 11:02
PROVIDERS: PCP Family Medicine; Referring Provider Internal Medicine Gastroenterology; Visit Provider Internal Medicine Gastroenterology
DX: R19.7 Diarrhea, unspecified (principal)
CPT/HCPCS: 36415; 82784; 83516; 86140; 86255

== ENCOUNTER → 2023-05-21 | Outpatient (CLI) | payer MEDICARE, OTHER, SELFPAY ==
[2023-05-21 15:53] LABS: Erythrocyte Sedimentation Rate 3 mm/hr (0-30)
[2023-05-21 16:20] LABS: Hemoglobin A1c 5.1 % (3.8-5.6)
[2023-05-21 16:21] LABS: CRP < 2.90 mg/L (0.0-3.0)
== END | disposition home or self-care (01) ==
LOC: BFHLAB 13:08
PROVIDERS: PCP Family Medicine; Referring Provider Family Medicine; Visit Provider Family Medicine
DX: R51.9 Headache, unspecified (principal); K52.9 Noninfective gastroenteritis and colitis, unspecified; E16.2 Hypoglycemia, unspecified
CPT/HCPCS: 36415; 83036; 85652; 86140

== ENCOUNTER → 2023-05-25 | Outpatient (CLI) | payer MEDICARE, OTHER, SELFPAY ==
--- NOTE | 2023-05-25 08:31 | CT_ITS ---
STUDY: CT CHEST, ABDOMEN T PELVIS WITH CONTRAST REASON FOR EXAM: Female, 73 years old. HOT FLASHES, ABD PAIN. Evaluation for lymphoma. RADIATION DOSAGE (If Supplied By Facility): CTDIvol = ( 15.87 ) mGy, DLP = ( 1216.70 ) mGycm TECHNIQUE: Transaxial imaging was performed following intravenous administration of Oral and amp; IV Readi-CAT and amp; 100mL Isovue-370. Multiplanar coronal and sagittal images were reformatted. Individualized dose optimization techniques were used for this CT. COMPARISON: Comparison is made with prior CT scan of the chest dated January 11, 2016. FINDINGS: CHEST A small benign-appearing bilateral axillary lymph nodes. Minimal apical scarring bilaterally. There is no demonstrated pleural abnormality. Normal heart and pericardium. No coronary artery calcification is seen. Normal mediastinum. Normal hilar regions. Normal unenhanced pulmonary arteries. Normal aorta arch and descending thoracic aorta. There are multi-level degenerative changes of the thoracic spine. There is no demonstrated abnormality of the visualized upper abdomen. ABDOMEN There is decreased attenuation of the liver consistent with steatosis. Normal gallbladder and extrahepatic biliary system. Normal spleen. Normal pancreas. Normal bilateral adrenal glands. Normal right kidney. Normal left kidney. Normal visualized stomach. Normal small intestine. Moderate amount of fecal material is seen in the colon. The appendix is visualized and appears normal. There is scattered atherosclerotic calcification of the abdominal aorta, without a demonstrated aneurysm. Normal inferior vena cava. Normal retroperitoneum. Normal abdominal wall. There are degenerative changes of the visualized lumbar spine. PELVIS Normal urinary bladder. Normal visualized small intestine. Normal visualized colon. There is no pelvic fluid. There is no pelvic lymphadenopathy or mass lesion. Normal visualized pelvic arteries. Normal abdominal wall. There are degenerative changes of the visualized lumbar spine. Prior laminectomy and fusion the lower lumbar spine. CT/CT Chest, Abd, Pel w/Contrast IMPRESSION: Fatty infiltration of the liver. Moderate amount of fecal material is seen in the colon. Electronically Signed: Matias Lion MD at 12:59 EDT ,
[2023-05-25 08:58] LABS: CREATININE FINGERSTICK < 0.9 mg/dL (0.55-1.02); EGFR FINGERSTICK > 60.0000 mL/min (>60)
[2023-05-26 15:18] LABS: Endomysial Antibody IgA Negative (Negative); Immunoglobulin A 232 mg/dL (64-422); t-Transglutaminase IgA <2 U/mL (0-3)
== END | disposition home or self-care (01) ==
LOC: CT 08:25
PROVIDERS: PCP Family Medicine; Referring Provider Family Medicine; Visit Provider Family Medicine
DX: R23.2 Flushing (principal); R10.9 Unspecified abdominal pain; K52.9 Noninfective gastroenteritis and colitis, unspecified
CPT/HCPCS: 36415; 71260; 74177; 82784; 83516; 86255; Q9967

== ENCOUNTER → 2023-05-28 | Outpatient (CLI) | payer MEDICARE, OTHER, SELFPAY | END | disposition home or self-care (01) | LOC: BFHLAB 14:15 | PROVIDERS: Surgery; PCP Family Medicine; Referring Provider Family Medicine; Visit Provider Family Medicine | DX: R23.2 Flushing (principal); E04.1 Nontoxic single thyroid nodule | CPT/HCPCS: 36415; 83520; 84443 ==

== ENCOUNTER → 2023-07-14 | Outpatient (CLI) | payer MEDICARE, OTHER, SELFPAY ==
[2023-07-14 11:57] LABS: Thyroid Stim Hormone (TSH) 0.06 uIU/mL (0.358-3.74)
== END | disposition home or self-care (01) ==
LOC: LAB 10:57
PROVIDERS: PCP Family Medicine; Referring Provider Surgery; Visit Provider Surgery
DX: E04.1 Nontoxic single thyroid nodule (principal)
CPT/HCPCS: 36415; 84443

== ENCOUNTER → 2023-08-10 | Outpatient (CLI) | payer MEDICARE, OTHER, SELFPAY ==
--- NOTE | 2023-08-10 11:50 | BI_ITS ---
MAMMOGRAPHY - BILATERAL SCREENING REASON FOR EXAM: Female, 73 years old. Routine annual screening examination. PERTINENT HISTORY: Non-contributory. Remote bilateral excisional breast biopsies. TECHNIQUE: Digital bilateral breast melyssa (3D mammographic acquisition) in the CC and MLO projections. 2-D mediolateral oblique (MLO) and craniocaudad (CC) views of both breasts were obtained. CAD: Full Field Digital Mammography with Computer Added Detection was performed. COMPARISON: Comparison is made with prior study dated July 17, 2022 and June 26, 2021. FINDINGS: Breast Composition: The breasts are almost entirely fatty. There are no dominant masses or suspicious calcifications. Stable small benign-appearing bilateral fracture. No other significant abnormalities are identified. There has been no significant change since the prior study. BI/SCRN MAMM (CAD)W/MELYSSA BILAT IMPRESSION: Stable bilateral screening mammogram. Yearly follow-up mammogram recommended. (A) ASSESSMENT CATEGORY: BIRADS Category 2: Benign. A letter regarding these results will be sent to the patient by the facility within 30 days. Approximately 10% of breast cancers are not detected by mammography. A normal mammogram should not delay biopsy of a clinically suspicious abnormality. [id number] Electronically Signed: Matias Lion MD at 14:21 EDT ,
== END | disposition home or self-care (01) ==
LOC: OPBI 11:49
PROVIDERS: PCP Family Medicine; Referring Provider Family Medicine; Visit Provider Family Medicine
DX: Z12.31 Encounter for screening mammogram for malignant neoplasm of breast (principal)
CPT/HCPCS: 77063; 77067

== ENCOUNTER → 2023-08-24 | Outpatient (CLI) | payer MEDICARE, OTHER, SELFPAY ==
[2023-08-24 13:21] LABS: Thyroid Stim Hormone (TSH) 0.93 uIU/mL (0.358-3.74)
== END | disposition home or self-care (01) ==
LOC: LAB 11:30
PROVIDERS: PCP Family Medicine; Referring Provider Surgery; Visit Provider Surgery
DX: E03.9 Hypothyroidism, unspecified (principal)
CPT/HCPCS: 36415; 84443

== ENCOUNTER → 2023-11-18 | Outpatient (CLI) | payer MEDICARE, OTHER, SELFPAY ==
[2023-11-18 13:33] LABS: T4 Free Direct 1.18 ng/dL (0.76-1.46); Thyroid Stim Hormone (TSH) 0.84 uIU/mL (0.358-3.74)
== END | disposition home or self-care (01) ==
PROVIDERS: PCP Family Medicine; Visit Provider Family Medicine
DX: E03.9 Hypothyroidism, unspecified (principal)
CPT/HCPCS: 36415; 84439; 84443

== ENCOUNTER → 2024-03-04 | Outpatient (CLI) | payer MEDICARE, OTHER, SELFPAY ==
--- NOTE | 2024-03-04 11:04 | RAD_ITS ---
HISTORY: EVAL SCS LEADS. TECHNIQUE: XR Spine Thoracic Min 4 Views. COMPARISON: None. FINDINGS: VERTEBRAE: Vertebral body heights maintained. No acute fracture identified. ALIGNMENT: No significant anterior or posterior subluxation. INTERVERTEBRAL DISCS: Degenerative endplate changes with osteophytes at multiple levels. SOFT TISSUES: Thoracic spinal stimulator electrode enters the spinal canal at the L1 level with tip at the T8 level. RAD/Thoracic Spine Min 4 Views IMPRESSION: Thoracic spinal electrode tip at the T8 level. No acute fracture or dislocation identified in the thoracic spine. Degenerative change. Electronically Signed: eJrri Villarreal MD at 9:27 EDT ,
== END | disposition home or self-care (01) ==
LOC: MTRAD 11:02
PROVIDERS: PCP Family Medicine; Referring Provider Anesthesiology Pain Medicine; Visit Provider Anesthesiology Pain Medicine
DX: M51.34 Other intervertebral disc degeneration, thoracic region (principal)
CPT/HCPCS: 72074

== ENCOUNTER → 2024-08-11 | Outpatient (CLI) | payer MEDICARE, OTHER, SELFPAY ==
--- NOTE | 2024-08-11 13:40 | BI_ITS ---
MAMMOGRAPHY - BILATERAL SCREENING REASON FOR EXAM: Female, 74 years old. Routine annual screening examination. PERTINENT HISTORY: Non-contributory. Remote bilateral excisional breast biopsies. TECHNIQUE: Digital bilateral breast melyssa (3D mammographic acquisition) in the CC and MLO projections. 2-D mediolateral oblique (MLO) and craniocaudad (CC) views of both breasts were obtained. CAD: Full Field Digital Mammography with Computer Added Detection was performed. COMPARISON: Comparison is made with prior study June 10, 2023 and July 17, 2022. FINDINGS: Breast Composition: The breasts are almost entirely fatty. There are no dominant masses or suspicious calcifications. Stable benign-appearing bilateral axillary lymph nodes. No other significant abnormalities are identified. There has been no significant change since the prior study. BI/SCRN MAMM (CAD)W/MELYSSA BILAT IMPRESSION: Stable bilateral screening mammogram. Yearly follow-up mammogram recommended. (A) ASSESSMENT CATEGORY: BIRADS Category 2: Benign. A letter regarding these results will be sent to the patient by the facility within 30 days. Approximately 10% of breast cancers are not detected by mammography. A normal mammogram should not delay biopsy of a clinically suspicious abnormality. [id number] Electronically Signed: Matias Lion MD at 14:49 EDT ,
== END | disposition home or self-care (01) ==
LOC: OPBI 13:38
PROVIDERS: PCP Family Medicine; Referring Provider Family Medicine; Visit Provider Family Medicine
DX: Z12.31 Encounter for screening mammogram for malignant neoplasm of breast (principal)
CPT/HCPCS: 77063; 77067

== ENCOUNTER → 2025-01-06 | Outpatient (CLI) | payer MEDICARE, OTHER, SELFPAY ==
[2025-01-06 10:58] LABS: Absolute Lymphocyte Count 1.51 X10^3/uL (0.83-4.51); Absolute Neutrophil Count 4.3 X10^3/uL (2.0-7.7); Basophil% 1.5 % (0-1); Eosinophil# 0.21 X10^3/uL; Eosinophils% 3.1 % (0-5); Hematocrit 40.6 % (37-47); Hemoglobin 13.1 g/dL (12.0-15.0); Lymphocyte # 1.51 X10^3/ul (0.83-4.51); Lymphocyte % 22.3 % (19-41); Mean Corp Hgb Conc 32.3 g/dL (32-36); Mean Corpuscular Hgb 29.6 pg (27.0-32.0); Mean Corpuscular Volume 91.6 fL (81-99); Mean Platelet Vol. 9.5 fl (6.2-12.0); Monocyte# 0.65 X10^3/uL; Monocyte% 9.6 % (0-10); NRBC Flagged by Analyzer 0 % (0-5); Neutrophil # 4.28 X10^3/uL (2.7-7.7); Neutrophil % 63.1 % (47-70); Platelet Count 330 K/mm3 (150-450); RBC Distribution Width CV 13.2 % (11.6-14.6); RBC Distribution Width SD 44.3 fl (35.1-43.9); Red Blood Count 4.43 M/mm3 (4.2-5.4); White Blood Count 6.8 K/mm3 (4.4-11.0)
[2025-01-06 11:24] LABS: ALB/GLOB Ratio 1.5 RATIO (0.9-2.4); AST(SGOT) 18 U/L (<=31); Alanine Aminotransfer ALT/SGPT 11 U/L (<=34); Albumin, Serum 4.1 g/dL (3.4-4.8); Alkaline Phosphatase 54 U/L (35-104); Anion Gap 10 (5-15); BUN 15 mg/dL (4-19); BUN/Creat Ratio 26.1 RATIO (10-20); Calcium,Total 8.7 mg/dL (7.6-11.0); Chloride 104 mmol/L (98-108); Cholesterol 248 mg/dL (<=200); Creatinine, Serum 0.59 mg/dL (0.70-1.20); EST Glomerular Filtration Rate 94 (>60); Globulin 2.7 g/dL (2.2-4.2); Glucose 99 mg/dL (70-99); High Density Lipoprotein 60 mg/dL; Low Density Lipoprotein Calc. 170 mg/dL; Potassium 4.2 mmol/L (3.3-5.1); Protein, Total 6.8 g/dL (5.9-8.4); Sodium Level 141 mmol/L (133-145); Total Bilirubin 0.24 mg/dL (0.00-1.30); Triglycerides 90 mg/dL; Very Low Density Lipoprotein 18 mg/dL (5-40); cholesterol:hdl ratio screen 4.13
[2025-01-06 12:38] LABS: Vitamin D,25 Hydroxy 61.8 ng/mL (30-100)
== END | disposition home or self-care (01) ==
LOC: MTLAB 08:59
PROVIDERS: PCP Family Medicine; Referring Provider Family Medicine; Visit Provider Family Medicine
DX: I10 Essential (primary) hypertension (principal); E78.5 Hyperlipidemia, unspecified; E03.9 Hypothyroidism, unspecified; E55.9 Vitamin D deficiency, unspecified
CPT/HCPCS: 36415; 80053; 80061; 82306; 84439; 84443; 85025

== ENCOUNTER → 2025-01-18 | Outpatient (CLI) | payer MEDICARE, OTHER, SELFPAY ==
--- NOTE | 2025-01-18 15:55 | BD_ITS ---
PROCEDURE: DEXA BONE DENSITY STUDY REASON FOR EXAM: None provided TECHNIQUE: DEXA scan of lumbar spine and bilateral hips, using a Hologic Horizon W unit. [facility]KS: [facility] COMPARISON: 06/08/2018; note only the images are available for review, the report is not available at the time of dictation. FINDINGS: LUMBAR SPINE: Bone mineral denisty, L1-L3: 0.928 g/cm??? T-score: -0.8 LEFT FEMORAL NECK: Bone mineral denisty: 0.544 g/cm??? T-score: -2.8 LEFT TOTAL HIP: Bone mineral denisty: 0.665 g/cm??? T-score: -2.3 RIGHT FEMORAL NECK: Bone mineral denisty: 0.563 g/cm??? T-score: -2.6 RIGHT TOTAL HIP: Bone mineral denisty: 0.637 g/cm??? T-score: -2.5 FRAX*: 10 Year Probability of Fracture: Major Osteoporotic Fracture(1): 26.0% Hip Fracture(2): 8.5% *FRAX is a trademark of the [employer]'s [employer] Metabolic Bone Disease, World Health Organization (WHO) Collaborating [employer]. 1-Major Osteoporotic Fracture: Clinical Spine, Forearm, Hip or Shoulder. 2-The 10-year probability of fracture may be lower than reported if the patient has received treatment. BD/Dexa Bone Density Study IMPRESSION: 1. Osteoporosis. 2. Note that direct comparison with the previous exam may not be possible as th jonathan were performed on different imaging units. 3. Additional description as above. Reading Location: [id number]
== END | disposition home or self-care (01) ==
LOC: OPBD 15:49
PROVIDERS: PCP Family Medicine; Referring Provider Family Medicine; Visit Provider Family Medicine
DX: M81.0 Age-related osteoporosis without current pathological fracture (principal)
CPT/HCPCS: 77080

== ENCOUNTER → 2025-01-24 | Outpatient (CLI) | payer MEDICARE, OTHER, SELFPAY ==
[2025-01-24 17:12] LABS: Vitamin D,25 Hydroxy 56.7 ng/mL (30-100)
[2025-01-24 17:21] LABS: PTHIN 27 pg/mL (11-61)
== END | disposition home or self-care (01) ==
LOC: MTLAB 11:06
PROVIDERS: PCP Family Medicine; Referring Provider Family Medicine; Visit Provider Family Medicine
DX: M81.0 Age-related osteoporosis without current pathological fracture (principal)
CPT/HCPCS: 36415; 82306; 83970

== ENCOUNTER → 2025-03-08 | Outpatient (CLI) | payer MEDICARE, OTHER, SELFPAY ==
--- NOTE | 2025-03-08 13:34 | RAD_ITS ---
PROCEDURE: HIP, UNI W/ PELVIS 2-3 VIEWS 03/08/2025 REASON FOR EXAM: HIP PAIN TECHNIQUE: AP view of the pelvis and two views right hip, 3 total images COMPARISON: None available FINDINGS: Bilateral symmetric appearing SI joints and pubic symphysis appear within limits. Lower lumbar posterior fusion and partially imaged intraspinal stimulator device. Left hip appears within limits. Moderate right hip joint space narrowing with mild osteophyte formation, spurring. No fracture or dislocation. RAD/HIP, UNI W/ Pelvis 2-3 Views IMPRESSION: Moderate right hip osteoarthrosis. Reading Location: [id number]
== END | disposition home or self-care (01) ==
LOC: MTRAD 13:33
PROVIDERS: PCP Family Medicine; Referring Provider Anesthesiology Pain Medicine; Visit Provider Anesthesiology Pain Medicine
DX: M25.551 Pain in right hip (principal)
CPT/HCPCS: 73502

== ENCOUNTER → 2025-08-24 | Outpatient (CLI) | payer MEDICARE, OTHER, SELFPAY ==
--- NOTE | 2025-08-24 13:21 | BI_ITS ---
EXAM: SCRN MAMM (CAD)W/MELYSSA BILAT DATE: 08/24/2025 CLINICAL HISTORY: F, Age 75 y/o , SCREENING No family history. History of prior bilateral excisional breast biopsies. TECHNIQUE: Procedure Code: [id number] Modality: MG Procedure: SCRN MAMM (CAD)W/MELYSSA BILAT COMPARISON: Prior exam(s) dated August 11, 2024.. FINDINGS: TISSUE DENSITY: The breasts are almost entirely fatty. Bilateral Breast Mammographic Findings: No significant masses, calcifications or other abnormalities are identified. Stable bilateral fat containing axillary lymph nodes. No suspicious masses, areas of developing architectural distortion, or suspicious calcifications. There has been no significant interval change. BI/SCRN MAMM (CAD)W/MELYSSA BILAT IMPRESSION: Stable bilateral screening mammogram. OVERALL FINAL ASSESSMENT BI-RADS 2: BENIGN RECOMMENDATION: Routine annual follow-up in 1 Year Additional Recommendation none A letter with findings and recommendations will be mailed to the patient. Reading Location: [place] [id number]
== END | disposition home or self-care (01) ==
LOC: OPBI 13:19
PROVIDERS: PCP Family Medicine; Referring Provider Family Medicine; Visit Provider Family Medicine
DX: Z12.31 Encounter for screening mammogram for malignant neoplasm of breast (principal)
CPT/HCPCS: 77063; 77067

== ENCOUNTER → 2025-09-11 | Outpatient (CLI) | payer MEDICARE, OTHER, SELFPAY ==
[2025-09-11 15:13] LABS: Hematocrit 41.9 % (37-47); Hemoglobin 13.5 g/dL (12.0-15.0); Immature Granulocytes Count 0.080 X10^3/uL (0.0-0.0); Mean Corp Hgb Conc 32.2 g/dL (32-36); Mean Corpuscular Volume 91.5 fL (81-99); Mean Platelet Vol. 9.4 fl (6.2-12.0); NRBC Flagged by Analyzer 0 % (0-5); Platelet Count 366 K/mm3 (150-450); RBC Distribution Width CV 14.3 % (11.6-14.6); RBC Distribution Width SD 47.5 fl (35.1-43.9); Red Blood Count 4.58 M/mm3 (4.2-5.4); White Blood Count 7.6 K/mm3 (4.4-11.0)
[2025-09-11 16:10] LABS: AST(SGOT) 16 U/L (<=31); Alanine Aminotransfer ALT/SGPT 11 U/L (<=34); Albumin, Serum 4.4 g/dL (3.4-4.8); Alkaline Phosphatase 45 U/L (35-104); Anion Gap 13 (5-15); BUN 26 mg/dL (4-19); BUN/Creat Ratio 46.4 RATIO (10-20); Calcium,Total 9.2 mg/dL (7.6-11.0); Carbon Dioxide 24.7 mmol/L (21.0-32.0); Chloride 100 mmol/L (98-108); Globulin 2.5 g/dL (2.2-4.2); Glucose 95 mg/dL (70-99); Potassium 4.2 mmol/L (3.3-5.1)
== END | disposition home or self-care (01) ==
LOC: BFHLAB 12:03
PROVIDERS: PCP Family Medicine; Visit Provider Family Medicine
DX: Z01.818 Encounter for other preprocedural examination (principal)
CPT/HCPCS: 36415; 80053; 85025

== ENCOUNTER 2025-10-06 08:35 | Day surgery (SDC) | payer MEDICARE, OTHER, SELFPAY ==
--- NOTE | 2025-10-02 14:42 | PAT.ANESEVAL ---
Pre-Assessment Diagnosis/Proposed Procedure Planned Operative Procedure(s): (R) Arthroplasty of the right fourth digit. Anesthesia History Anesthesia History - patient intake coordinator: Anesthesia History - patient intake coordinator Hx Hospitalization No 10/02/25 13:53 Any Problems With Anesthesia Yes: LOW O2 IN RECOVERY, 10/02/25 13:53 DIFFICULTY GETTING SPO2 NORMAL Cholinesterase deficiency No 10/02/25 13:53 You/Your Family Experience No 10/02/25 13:53 fever (hyperthermia) with Relationship Recent Exposure to Contagious No 04/13/23 06:30 Disease Does patient have nerve Yes: SPINAL CORD STIMULATOR 10/02/25 13:53 stimulator Patient instructed to have device shut off --Does patient have Pacemaker or ICD? When Was Last Pacemaker Check QUESTION #4 FULL TEXT: You/Your Family Experience fever (hyperthermia) with Anesthesia Last Oral Intake Last Oral intake: Last Oral Intake NPO since Meds taken in AM with sips of water? Meds patient instructed to take am of surgery PONV PONV - patient intake coordinator: PONV - patient intake coordinator Female Yes 10/02/25 13:53 HX of Motion Sickness Yes 10/02/25 13:53 HX of N/V After Surgery Yes 10/02/25 13:53 Non-Smoker Yes 10/02/25 13:53 Duration of Surgery greater Yes 10/02/25 13:53 than 60 minutes Number of Risk Factors 5 10/02/25 13:53 PONV Score Severe Risk 10/02/25 13:53 Height & Weight Height & Weight: Anesthesia: Height & Weight Height 5 ft 04/13/23 06:30 Respiratory Assessment Respiratory Assessment - patient intake coordinator: Respiratory Tract Infection Hx - patient intake coordinator Hx Respiratory Tract Infection No 10/02/25 13:53 STOP Sleep Apnea STOP Sleep Apnea - patient intake coordinator: STOP Sleep Apnea - patient intake coordinator Hx Hypertension Yes: CONTROLLED WITH MED 10/02/25 13:53 Hx Sleep Apnea No 10/02/25 13:53 CPAP BIPAP Do you snore loudly (louder No 10/02/25 13:53 than talking or can be heard Do you often feel tired/ No 10/02/25 13:53 fatigued/ sleepy during daytime? Has anyone observed you stop No 10/02/25 13:53 breathing during sleep? STOP Results Negative 10/02/25 13:53 QUESTION #5 FULL TEXT : Do you snore loudly (louder than talking or can be heard through closed doors)? Tobacco Use History Tobacco Use History - patient intake coordinator: Tobacco Use History - patient intake coordinator Tobacco Use Smoking Status Former smoker 10/02/25 13:53 Hx Tobacco Use No 10/02/25 13:53 Years Smoking Packs Smoked per Day Smoking Cessation Date was No - quit smoking greater 10/02/25 13:53 within the last 15 years than 15 years ago Hx Smoking Cessation Date 11/02/79 10/02/25 13:53 Hx Smoking Cessation Counseling Hematologic Medial History Hematologic Hx - patient intake coordinator: Hematologic Medical Hx - secy Hx of Blood Transfusion No 10/02/25 13:53 Hx of Transfusion in last 3 No 10/02/25 13:53 Months Date of Last Transfusion (if within last 3 months) Ever experience any problems No 10/02/25 13:53 with transfusion(s)? Specify any problems Hx of Preganancy in last 3 N/A 10/02/25 13:53 Months Nurse Filling Out Transfusion [facility]BU[facility]ER 10/02/25 13:53 & Questions: Date: 10/02/25 10/02/25 13:53 Time: 13:55 10/02/25 13:53 Patient unable to answer at this time (ie. confused, unrespo /Reproduction History /Reproductive History - patient intake coordinator: /Reproductive Hx- patient intake coordinator Hx Now No 10/02/25 13:53 Gestational Age (in weeks): EDC: Hx Hx Para Hx Section SAB No 10/02/25 13:53 Does the father of the baby or his family experience fever w Father of the baby Malignant Hypertension history comment [facility] Medical History (Updated 10/02/25 @ 14:02 by Jannette Fernandez) Depression Thyroid disease PONV (postoperative nausea and vomiting) Osteoporosis Hypothyroid Wears glasses Post-menopausal Anxiety Alcohol use History of steroid therapy Arthritis Back pain Migraine headache Difficulty swallowing History of ulceration Gastric reflux Former smoker Asthma History of pain when walking Leg cramps History of echocardiogram History of stress test History of IBS Thyroid nodule Back pain Difficulty balancing Shoulder pain Hemorrhoids right ring finger surgery Vitamin D deficiency Sleep disturbance Peptic ulcer Noninflammatory disorder of vagina Hyperlipidemia Osteoarthrosis Mitral valve prolapse IBS (irritable bowel syndrome) Hypotension Hypocalcemia Hematuria Heartburn Gastric ulcer Esophagitis Diffuse cystic mastopathy Diarrhea Diaphragmatic hernia without mention of obstruction or gangrene Anxiety Hypertension Home Medications ?Medication ?Instructions ?Recorded ?Last Taken ?Type amlodipine 5 mg tablet 5 mg PO DAILY 02/05/16 04/13/23 History citalopram 20 mg tablet 20 mg PO DAILY 10/17/20 04/12/23 History albuterol sulfate 90 mcg/actuation 2 puff inhalation PRN PRN ASTHMA 04/06/23 04/12/23 History aerosol inhaler levothyroxine 75 mcg capsule 75 mcg PO DAILY #30 caps 09/28/23 Unknown Rx alendronate 70 mg tablet 70 mg PO ACHARYA 10/02/25 Unknown History pantoprazole 40 mg tablet,delayed 40 mg PO DAILY 10/02/25 Unknown History release Allergy/AdvReac Type Severity Reaction Status Date / Time ciprofloxacin (From Cipro) Allergy EXTREME Verified 10/02/25 13:50 DIARRHEA gabapentin AdvReac Severe Diarrhea Verified 10/02/25 13:50 Family History Grandmother Colon cancer Father Cancer CVA (cerebral vascular accident) Parkinson disease Mother Hypertension Alzheimer disease Surgical History (Updated 10/02/25 @ 14:02 by Jannette Fernandez) History of insertion of nerve stimulator History of thyroidectomy (04/13/23) History of cardiac catheterization History of tonsillectomy S/P adenoidectomy S/P foot surgery History of esophagogastroduodenoscopy (EGD) H/O colonoscopy H/O breast biopsy S/P thyroid biopsy Previous back surgery Social History Smoking Status: Former smoker alcohol intake: current alcohol intake frequency: 0-2 drinks per day substance use type: does not use what type of physical activity do you participate in: none seatbelt use: always do you feel safe at home: Yes additional social history: - [place] Works automotive parts specialist at [employer] Audit: Pertinent Findings Pertinent Findings EKG Perinent findings: EKG 04/07/2023. Normal sinus rhythm. Nonspecific T wave abnormality. Recommendation Anesthesia Recommendation Anesthesia recommendation: OPTIMIZED for anesthesia
[2025-10-06] VITALS (8 sets, daily range): BP systolic 123–154; BP diastolic 50–65; PULSE 61–75; RESP 12–16; TEMP 36.1–37.3; O2SAT 93–97; BMI 26.5
--- NOTE | 2025-10-06 09:00 | RAD_ITS ---
EXAM: XR Right Foot, 2 Views CLINICAL INDICATION: ARTHROPLASTY OF RIGHT FOURTH DIGIT TECHNIQUE: Frontal and lateral views of the right foot. COMPARISON: No relevant prior studies available. FINDINGS: Floor fluoroscopic images were obtained. Total radiation exposure 14 seconds. Total radiation dose 0.0873 mGy. RAD/Foot 2 Views IMPRESSION: Fluoroscopic guidance was used intraoperatively. Please refer to the operative note for further details. Reading Location: [id number]
[2025-10-06] MEDS: Lactated Ringers 1,000 ML 15 ML IV (09:03)
--- NOTE | 2025-10-06 09:03 | PCM.PRE.AN2 ---
ASA Classification* ASA Classification ASA Classification: 2 Assessment & Plan Anesthesia* Anesthesia Assessment Anesthesia Assessment: Discussed sedation and/or anesthesia options, risks, benefits, and alternatives with patient/parents/legal guardian/POA. Questions invited. The patient/parents/legal guardian/POA seems to understand and agrees to proceed with anesthesia plan. Reviewed the physical assessment, medical history, allergy history and patient home medications list prior to surgery/procedure/anesthetic and documented any changes. Performed airway and anesthesia risk assessments. Anesthesia Type Anesthesia Type: MAC Anesthesia Focused Assessment* Temperature: 99.1 F Pulse Rate: 75 Blood Pressure: 154/65 Respiratory Rate: 16 Pulse Ox: 97 Airway Assessment Mouth opens: >3 cm Mallampati Score: II Labs Anesthesia Preop lab: CBC WBC, (4.4-11.0) 7.6 K/mm3 09/11/25, 12:04 RBC, (4.2-5.4) 4.58 M/mm3 09/11/25, 12:04 Hgb, (12.0-15.0) 13.5 g/dL 09/11/25, 12:04 Hct, (37-47) 41.9 % 09/11/25, 12:04 Plt Count, (150-450) 366 K/mm3 09/11/25, 12:04 CHEMISTRY Potassium, (3.3-5.1) 4.2 mmol/L 09/11/25, 12:04 Sodium, (133-145) 137 mmol/L 09/11/25, 12:04 Phosphorus, (2.5-4.9) 3.4 mg/dL 04/07/23, 10:25 BUN, (4-19) 26 mg/dL H 09/11/25, 12:04 Creatinine, (0.70-1.20) 0.55 mg/dL L 09/11/25, 12:04 Glucose, (70-99) 95 mg/dL 09/11/25, 12:04 POC Glucose, (74-106) 146 mg/dL H 04/13/23, 14:14 TSH, (0.300-4.200) 1.470 uIU/mL 01/06/25, 09:04 COAG PT, (11.7-14.9) 13.2 SECONDS 01/21/16, 09:27 Pre-Assessment Diagnosis/Proposed Procedure Planned Operative Procedure(s): (R) Arthroplasty of the right fourth digit. Anesthesia History Anesthesia History - stem setter: Anesthesia History - stem setter Hx Hospitalization No 10/02/25 13:53 Any Problems With Anesthesia Yes: LOW O2 IN RECOVERY, 10/02/25 13:53 DIFFICULTY GETTING SPO2 NORMAL Cholinesterase deficiency No 10/02/25 13:53 You/Your Family Experience No 10/02/25 13:53 fever (hyperthermia) with Relationship Recent Exposure to Contagious No 10/06/25 08:58 Disease Does patient have nerve Yes: SPINAL CORD STIMULATOR 10/02/25 13:53 stimulator Patient instructed to have device shut off --Does patient have Pacemaker No 10/06/25 08:58 or ICD? When Was Last Pacemaker Check QUESTION #4 FULL TEXT: You/Your Family Experience fever (hyperthermia) with Anesthesia Last Oral Intake Last Oral intake: Last Oral Intake NPO since 18:00 10/06/25 08:58 Meds taken in AM with sips of Yes 10/06/25 08:58 water? Meds patient instructed to take am of surgery PONV PONV - stem setter: PONV - stem setter Female Yes 10/02/25 13:53 HX of Motion Sickness Yes 10/02/25 13:53 HX of N/V After Surgery Yes 10/02/25 13:53 Non-Smoker Yes 10/02/25 13:53 Duration of Surgery greater Yes 10/02/25 13:53 than 60 minutes Number of Risk Factors 5 10/02/25 13:53 PONV Score Severe Risk 10/02/25 13:53 Height & Weight Height & Weight: Anesthesia: Height & Weight Height 5 ft 10/06/25 08:58 Weight: 61.6 kg 10/06/25 08:58 Body Mass Index (BMI) 26.5 10/06/25 08:58 Respiratory Assessment Respiratory Assessment - stem setter: Respiratory Tract Infection Hx - stem setter Hx Respiratory Tract Infection No 10/02/25 13:53 STOP Sleep Apnea STOP Sleep Apnea - stem setter: STOP Sleep Apnea - stem setter Hx Hypertension Yes: CONTROLLED WITH MED 10/02/25 13:53 Hx Sleep Apnea No 10/02/25 13:53 CPAP BIPAP Do you snore loudly (louder No 10/02/25 13:53 than talking or can be heard Do you often feel tired/ No 10/02/25 13:53 fatigued/ sleepy during daytime? Has anyone observed you stop No 10/02/25 13:53 breathing during sleep? STOP Results Negative 10/02/25 13:53 QUESTION #5 FULL TEXT : Do you snore loudly (louder than talking or can be heard through closed doors)? 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 Specify any problems Hx of Preganancy in last 3 N/A 10/02/25 13:53 Months Nurse Filling Out Transfusion [facility] 10/02/25 13:53 & Questions: Date: 10/02/25 10/02/25 13:53 Time: 13:55 10/02/25 13:53 Patient unable to answer at this time (ie. confused, unrespo /Reproduction History /Reproductive History - stem setter: /Reproductive Hx- stem setter Hx Now No 10/02/25 13:53 Gestational Age (in weeks): EDC: Hx Hx Para Hx Section SAB No 10/02/25 13:53 Does the father of the baby or his family experience fever w Father of the baby Malignant Hypertension history comment Active Medications Active Medications: Current Medications Generic Name Dose Route Start Last Admin Trade Name Freq PRN Reason Stop Dose Admin Cefazolin Sodium 2 gm/ Sodium 110 mls @ 200 mls/hr 10/06/25 10:00 10/06/25 08:55 Chloride IV 10/06/25 10:32 Not Given INTRAOP ONE Lactated Ringer's 1,000 mls @ 15 mls/hr 10/06/25 08:45 IV .Q48H HAROON PFSH Medical History Depression Thyroid disease PONV (postoperative nausea and vomiting) Osteoporosis Hypothyroid Wears glasses Post-menopausal Anxiety Alcohol use History of steroid therapy Arthritis Back pain Migraine headache Difficulty swallowing History of ulceration Gastric reflux Former smoker Asthma History of pain when walking Leg cramps History of echocardiogram History of stress test History of IBS Thyroid nodule Back pain Difficulty balancing Shoulder pain Hemorrhoids right ring finger surgery Vitamin D deficiency Sleep disturbance Peptic ulcer Noninflammatory disorder of vagina Hyperlipidemia Osteoarthrosis Mitral valve prolapse IBS (irritable bowel syndrome) Hypotension Hypocalcemia Hematuria Heartburn Gastric ulcer Esophagitis Diffuse cystic mastopathy Diarrhea Diaphragmatic hernia without mention of obstruction or gangrene Anxiety Hypertension Home Medications ?Medication ?Instructions ?Recorded ?Last Taken ?Type amlodipine 5 mg tablet 5 mg PO DAILY 02/05/16 10/06/25 History citalopram 20 mg tablet 20 mg PO DAILY 10/17/20 10/06/25 History albuterol sulfate 90 mcg/actuation 2 puff inhalation PRN PRN ASTHMA 04/06/23 04/12/23 History aerosol inhaler levothyroxine 75 mcg capsule 75 mcg PO DAILY #30 caps 09/28/23 10/06/25 Rx alendronate 70 mg tablet 70 mg PO ACHARYA 10/02/25 10/01/25 History pantoprazole 40 mg tablet,delayed 40 mg PO DAILY 10/02/25 10/06/25 History release Allergy/AdvReac Type Severity Reaction Status Date / Time ciprofloxacin (From Cipro) Allergy EXTREME Verified 10/06/25 08:57 DIARRHEA gabapentin AdvReac Severe Diarrhea Verified 10/06/25 08:57 Family History Grandmother Colon cancer Father Cancer CVA (cerebral vascular accident) Parkinson disease Mother Hypertension Alzheimer disease Surgical History History of insertion of nerve stimulator History of thyroidectomy (04/13/23) History of cardiac catheterization History of tonsillectomy S/P adenoidectomy S/P foot surgery History of esophagogastroduodenoscopy (EGD) H/O colonoscopy H/O breast biopsy S/P thyroid biopsy Previous back surgery Social History Smoking Status: Former smoker alcohol intake: current alcohol intake frequency: 0-2 drinks per day substance use type: does not use what type of physical activity do you participate in: none seatbelt use: always do you feel safe at home: Yes additional social history: - [place] Works police department secretary at [employer] Review of Systems (Anesthesia) ROS Narrative System reviewed and no additional complaints, except as documented.
--- NOTE | 2025-10-06 10:00 | BON_PTH ---
PATIENT: ROSALVA RODRIGUEZ LOC: [facility] – [place] U#:[id number] AGE/SX: 75/F ROOM: RE10/06/[address]: Dr. Jeffery John DPM : 1950 BED: DIS: 10/06/2025 SPEC #: [id number] RECD: 10/06/25 11:35 STATUS: ELIESER CARMELA #: [id number] LENCHO: 10/06/25 10:[address]: Jeffery John DEPT: SURGICAL PATHOLOGY RECD BY: Alba Myrick ENTERED: 10/06/25 13:17 SP TYPE: Bone OTHR DR: Dr. Chalino Mae, DO Tissues: Toe, NOS Procedures: Decalcification bone/plaque Surgery Specimen Level III HEADER OPERATION: Arthroplasty of right fourth digit PRE-OP DIAGNOSIS: Right foot hammer toe TISSUE SUBMITTED: A- Fourth hammer toe bone MICROSCOPIC DIAGNOSIS A. Bone, right 4th toe, arthroplasty: - Articular bone with reactive/degenerative changes and fatty marrow spaces. MICROSCOPIC DESCRIPTION Slides are reviewed. GROSS DESCRIPTION A. Received in formalin labeled with the patient's name and date of . Designated as Fourth toe bone is a 1.3 x 0.7 x 0.7 cm ring-pink portion of bone surfaced by ring glistening articular cartilage and an additional fragment of bone, 0.4 x 0.2 x 0.1 cm. Sectioning reveals yellow medullary bone. No definitive lesions are identified. Entirely submitted in 1 cassette, following decalcification. [place] 10/06/2025 CPT:57888,34390
--- NOTE | 2025-10-06 10:15 | PCM.DC ---
Discharge Instructions DC O2, CPAP, BIPAP needs Home O2 Discharge instructions: No Dressing / Incision Discharge Activity: May Not Drive and Use Walker Weight Bearing Status: No weight bearing (Ok to put weight on right heel with assistance with a walker if needed) Keep extremity elevated above heart level: Operative Extremity (Keep right foot elevated for at least 50 minutes of every hour using pillows) Dressing / Incision Call your doctor if your incision/area has: Sudden Increased Bleeding and Foul Smelling Discharge Call your doctor if you observe: Fever of 101 or Higher, Shortness of breath, Chest pain, Increased palpitations (irregular heartbeat), Calf discomfort and Uncontrolled pain Change Dressing in: do not change dressing Remove Dressing in: do not remove dressing Cleanse incision/area with: Keep Dressing Clean & Dry Follow Up Care Please Follow Up With: Jeffery John DPM When: next week in office, but sooner if needed. [phone] - office number [phone] - Dr. John cell - please call if needed Test Results: Test results from this visit will be discussed in further detail at your follow-up appointment, if applicable. Discharge Plan Admission Attending Provider: Jeffery John Primary Care Provider: Chalino Mae Instructions Print Language: Wallisian Discharge Orders/Prescriptions Prescriptions: New hydrocodone-acetaminophen 5-325 mg tablet 1 tab PO Q6H PRN (Reason: pain) 4 Days Qty: 20 0RF Continued citalopram 20 mg tablet 20 mg PO DAILY amlodipine 5 MG tablet 5 mg PO DAILY albuterol sulfate 90 mcg/actuation HFA aerosol inhaler 2 puff INHALATION PRN PRN (Reason: ASTHMA) Patient Comments: (ANY BRAND) 2 PUFFS EVERY 4 HOURS NEEDED FOR WHEEZING alendronate 70 mg tablet 70 mg PO ACHARYA pantoprazole 40 mg tablet,delayed release (DR/EC) 40 mg PO DAILY levothyroxine 75 mcg capsule 75 mcg PO DAILY Qty: 30 2RF Referrals / Follow Up: Chalino Mae DO [Primary Care Provider, Family Practice] Disposition Disposition (needs filled in before D/C Order can be placed): Home, Self Care
[2025-10-06] MEDS: Cefazolin 1 GM/5 ML Vial 2 GM IV (10:16)
[2025-10-06] MEDS: Lidocaine 1% (5 ml sdv) 5 ML Vial IV (10:17)
[2025-10-06] MEDS: fentaNYL 100 MCG/2 ML Ampul IV (10:22)
--- NOTE | 2025-10-06 10:55 | PCM.OPRPT ---
Operative Report (Standard) Operative Information Date of Procedure: 10/06/25 Pre-Operative Diagnosis: 4th digit hammer toe, right Post-Operative Diagnosis: Same Surgery/Procedure Performed: Arthroplasty 4th toe, right corn husker: Yes Log Chain Feeder: Dr.D Goins Tasks completed by learning and development assistant: Removing tissue and Retracting Type of Anesthesia: Local MAC RN Documented Start/Stop Times: Operation Date: 10/06/25 10:00 Case Time Into Pre-Op 10/06/25 08:42 Anesthesia Start 10/06/25 10:09 Into Room 10/06/25 10:09 Out of Pre-Op 10/06/25 10:09 Procedure Start 10/06/25 10:26 Procedure End 10/06/25 10:52 Anesthesia End 10/06/25 10:57 Out of Room 10/06/25 10:57 Into Recovery 10/06/25 10:58 Out of Recovery 10/06/25 11:11 Into Phase II Recovery 10/06/25 11:12 Out of Phase II 10/06/25 11:57 Procedure Start Time: 10:26 Procedure Stop Time: 10:52 Select all DRAINS/GRAFTS/IMPLANTS that apply: None Estimated Blood Loss: < 1 mL Specimen collected: Yes Description of specimen(s) removed: Bone from right 4th toe sent to pathology Description of surgery: Indications: 75 year old female with pain and deformity of right 4th toe despite nonsurgical care. She has elected to proceed with surgical intervention derotational arthroplasty of the 4th right toe. Reviewed the procedure, possible benefits vs risks, goals, expectations and estimated healing time prior to the procedure. The consent forms were reviewed with her and she freely signed them. Operative procedure: The patient was brought back to the operating room and was placed on the operating room table in the supine position. The patient was carefully secured to the operating table with a safety belt around her waist. A timeout was performed and the patient was properly identified and surgical plan confirmed. The patient received antibiotic prophylaxis 2g Ancef IV. A well padded pneumatic tourniquet was applied around the patient right ankle. The patient received MAC anesthesia per the anesthesia team. A total of 9mL of 0.5% Bupivacaine plain was given as a right foot 4th ray block after the overlying skin was cleansed with 70% Isopropyl alcohol. The patient's right foot was scrubbed, prepped, and draped in the usual aseptic fashion. 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 There was a callus present to the site. The right foot was elevated for several minutes and the right ankle pneumatic tourniquet was inflated to 250mmHg. Two curvilinear elliptical (derotational) converging skin incisions were made using a 15 blade over the proximal interphalangeal joint to allow correction of the adductovarus deformity. A full-thickness skin ellipse was excised, oriented to facilitate derotation of the digit. Dissection was carried down through the subcutaneous tissues with care to protect neurovascular structures. The extensor tendon was identified and incised transversely to expose the head of the proximal phalanx. Using a sagittal saw, the proximal phalanx head was resected (resection arthroplasty) to shorten the toe and reduce plantar purchase. The remaining proximal phalanx was smoothed of any sharp edges. Attention was then directed to the lateral condylectomy of the middle phalanx was the bony prominence corresponding to the patient?s painful plantar-lateral callus was resected using a sagittal saw. The resected bone was sent to pathology as specimen. The bone was viable appearing. At this point there was no prominent or sharp bone noted and the callus site was offloaded. The toe was manually realigned and derotated to a rectus position, confirming reduction of the adductovarus deformity and improved digital purchase. The site was flushed out with copious amounts of normal saline solution. The remaining tissues appeared healthy and viable. A derotational skin plasty was performed by closing the elliptical incision under slight rotational tension first reapproximating the extensor tendon using 3-0 Vicryl and the skin was reapproximated using 3-0 Nylon correcting torsion of the digit. The digit held a rectus, well-aligned position without undue tension. A dressing of betadine soaked adaptic, 4x4 gauze, kerlix and latha dressing applied. The pneumatic tourniquet was deflated and immediate capillary refill confirmed. Total tourniquet time was 24 minutes. The patient tolerated the above procedure and anesthesia well with no complication. The patient was transported from the operating room to the recovery room with vital signs stable and in good condition. Post operative orders were placed. The patient was given verbal and written discharge instructions which have been reviewed with her. She is going to follow up with me in office next week, but sooner if needed. Surgical Findings: As noted above Complications Complications: No
--- NOTE | 2025-10-06 11:00 | PCM.POST.ANE ---
Anesthesia: Postop Eval I Current Vital Signs Temperature: 98.2 F Pulse Rate: 68 Blood Pressure: 132/50 Respiratory Rate: 12 Pulse Ox: 93 Oxygen Delivery Method: Room Air Assessment Airway patent: Yes Spontaneous unlabored respirations: Yes Mental status: Awake and Calm nausea: No Vomiting: No Anesthesia Complication: No Fluid Hydration Crystalloid volume administer (ml): 700 Total IV fluid infused: 700 Progress Note Anesthesia document: Postop Eval 1 completed: Yes
--- NOTE | 2025-10-06 11:50 | POSTOPAN2_ITS ---
Anesthesia Postop Eval I Sum Postop Eval Completion status Anesthesia document: Postop Eval 1 completed: Yes Anesthesia Postop Eval I Summary Anesthesia Postop Eval I Summary: Anesthesia Postop Eval I: Assessment Summary Airway patent Yes 10/06/25 11:01 [email or web address] [email or web address] Spontaneous unlabored Yes 10/06/25 11:01 [email or web address] [email or web address] respirations Mental status Awake,Calm 10/06/25 11:01 [email or web address] [email or web address] nausea No 10/06/25 11:01 [email or web address] Vomiting No 10/06/25 11:01 [email or web address] [email or web address] Anesthesia Postop Eval I: Fluid Summary Crystalloid volume administer 700 10/06/25 11:01 [email or web address] (ml) Colloids volume administered ( ml) Blood Product volume administered (ml) Total IV fluid infused 700 10/06/25 11:01 [email or web address] [email or web address] Anesthesia Postop Eval I: Summary Notes Anesthesia Complication No 10/06/25 11:01 [email or web address] Anesthesia Complication Comment: Post-operative progress note Anesthesia: Postop Eval II Evaluation Mental status: Awake Pain Level: 0 nausea: No Vomiting: No
--- NOTE | 2025-10-06 11:50 | PCM.POSTANE2 ---
Anesthesia Postop Eval I Sum Postop Eval Completion status Anesthesia document: Postop Eval 1 completed: Yes Anesthesia Postop Eval I Summary Anesthesia Postop Eval I Summary: Anesthesia Postop Eval I: Assessment Summary Airway patent Yes 10/06/25 11:01 BIOMEDICAL EQUIPMENT TECH.SHOF Spontaneous unlabored Yes 10/06/25 11:01 BIOMEDICAL EQUIPMENT TECH.SHOF respirations Mental status Awake,Calm 10/06/25 11:01 BIOMEDICAL EQUIPMENT TECH.SHOF nausea No 10/06/25 11:01 BIOMEDICAL EQUIPMENT TECH.SHOF Vomiting No 10/06/25 11:01 BIOMEDICAL EQUIPMENT TECH.SHOF Anesthesia Postop Eval I: Fluid Summary Crystalloid volume administer 700 10/06/25 11:01 BIOMEDICAL EQUIPMENT TECH.SHOF (ml) Colloids volume administered ( ml) Blood Product volume administered (ml) Total IV fluid infused 700 10/06/25 11:01 BIOMEDICAL EQUIPMENT TECH.SHOF Anesthesia Postop Eval I: Summary Notes Anesthesia Complication No 10/06/25 11:01 BIOMEDICAL EQUIPMENT TECH.SHOF Anesthesia Complication Comment: Post-operative progress note Anesthesia: Postop Eval II Evaluation Mental status: Awake Pain Level: 0 nausea: No Vomiting: No
== END 2025-10-06 11:59 | disposition home or self-care (01) ==
LOC: SDC 08:35 → AC 08:37
PROVIDERS: PCP Family Medicine; Referring Provider Podiatrist; Visit Provider Podiatrist
PROC: (CPT 28285; principal; 2025-10-06 09:45)
DX: M20.41 Other hammer toe(s) (acquired), right foot (principal); I10 Essential (primary) hypertension; Z87.891 Personal history of nicotine dependence; K21.9 Gastro-esophageal reflux disease without esophagitis; E03.9 Hypothyroidism, unspecified; K58.9 Irritable bowel syndrome, unspecified; F43.20 Adjustment disorder, unspecified
CPT/HCPCS: 28285; 01480; 73620; 76000; 88304; 88305; 88311